=== PATIENT | female | born 1940 | race Caucasian/White ===

== ENCOUNTER 2019-04-05 14:10 | Inpatient (IN) | payer MEDICAID, MEDICARE ==
[~2019-04-05] VITALS: Ht 157.5 cm; Wt 60.6 kg
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
[2019-04-05 16:00] VITALS: BP 114/76
[2019-04-05] MEDS ORDERED: MAGNESIUM HYDROXIDE 2,400 MG/30 ML ORAL.SUSP. PO PRN (16:00)
[2019-04-05] MEDS ORDERED: MAG HYDROX/AL HYDROX/SIMETH 30 ML ORAL.SUSP PO PRN (16:00)
[2019-04-05] MEDS ORDERED: METHYL SALICYLATE/MENTHOL TOPICAL OINTMENT 29GM TUBE. TP PRN (16:00)
[2019-04-05 17:05] LABS: BASO # 0.1 x10^3/uL (0.0-0.2); BASO % 1 % (0-3); EOS # 0.2 x10^3/uL (0.0-0.7); EOS % 2 % (0-3); HEMATOCRIT 40.4 % (36.0-47.0); HEMOGLOBIN 13.6 g/dL (12.0-15.5); LYMPH # 1.7 x10^3/uL (1.0-4.8); LYMPH % 15 % (24-48); MEAN CORPUSCULAR HEMOGLOBIN 33 pg (25-35); MEAN CORPUSCULAR HGB CONC 34 g/dL (31-37); MEAN CORPUSCULAR VOLUME 98 fL (79-100); MONO # 1.1 x10^3/uL (0.0-1.1); MONO % 10 % (0-9); NEUT # 8.3 x10^3uL (1.8-7.7); NEUT % 73 % (31-73); PLATELET COUNT 296 x10^3/uL (140-400); RED BLOOD COUNT 4.12 x10^6/uL (3.50-5.40); RED CELL DISTRIBUTION WIDTH 13.5 % (11.5-14.5); WHITE BLOOD COUNT 11.5 x10^3/uL (4.0-11.0)
[2019-04-05 17:15] LABS: ALBUMIN 3.2 g/dL (3.4-5.0); ALBUMIN/GLOBULIN RATIO 0.8 (1.0-1.7); CALCIUM 9.5 mg/dL (8.5-10.1); CREATININE 0.9 mg/dL (0.6-1.0); GFR 60.9; MAGNESIUM 1.9 mg/dL (1.8-2.4); POTASSIUM 3.5 mmol/L (3.5-5.1); TOTAL BILIRUBIN 0.7 mg/dL (0.2-1.0)
[2019-04-05] MEDS ORDERED: FERR325T14 PO (17:23)
[2019-04-05] MEDS ORDERED: POLY17PO5 PO (17:23)
[2019-04-05] MEDS ORDERED: ACET325T9 PO (17:23)
[2019-04-05] MEDS ORDERED: HALO5TAB PO (17:23)
[2019-04-05] MEDS ORDERED: ALBU2.5V8 IH (17:23)
[2019-04-05] MEDS ORDERED: HYDR-2155 PO (17:23)
[2019-04-05] MEDS ORDERED: EZET10TA18 PO (17:23)
[2019-04-05] MEDS ORDERED: GLIM4TAB2 PO (17:23)
[2019-04-05] MEDS ORDERED: IPRA3AMP29 NEB (17:23)
[2019-04-05] MEDS ORDERED: VIT1CAPS12 PO (17:23)
[2019-04-05] MEDS ORDERED: BUSP10TA PO (17:23)
[2019-04-05] MEDS ORDERED: DICY10AM IM (17:23)
[2019-04-05] MEDS ORDERED: BISA10SU2 RC (17:23)
[2019-04-05] MEDS ORDERED: RISP1TAB43 PO (17:23)
[2019-04-05] MEDS ORDERED: SITA100T PO (17:23)
[2019-04-05] MEDS ORDERED: ONDA4TAB12 PO (17:23)
[2019-04-05] MEDS ORDERED: ISOS60TA2 PO (17:23)
[2019-04-05] MEDS ORDERED: BUDE0.5A3 IH (17:23)
[2019-04-05] MEDS ORDERED: CALC-157 PO (17:23)
[2019-04-05] MEDS ORDERED: DULO60CA6 PO (17:23)
[2019-04-05] MEDS ORDERED: LOPE2TAB27 PO (17:23)
[2019-04-05] MEDS ORDERED: ASPI-612 PO (17:23)
[2019-04-05] MEDS ORDERED: INSU100I17 SQ (17:23)
[2019-04-05] MEDS ORDERED: HYDROcodone/APAP 5/325MG 1 TAB TABLET PO PRN (17:30)
[2019-04-05] MEDS ORDERED: ALBUTEROL SULFATE 2.5 MG/3 ML NEBU. IH PRN (17:30)
[2019-04-05] MEDS ORDERED: ACETAMINOPHEN 325 MG TABLET PO PRN (17:30)
[2019-04-05] MEDS ORDERED: DICYCLOMINE HCL 20 MG TABLET PO PRN (18:00)
[2019-04-05] MEDS ORDERED: BISACODYL 10 MG SUPP.RECT PR PRN (18:00)
[2019-04-05] MEDS ORDERED: HALOPERIDOL 5 MG TABLET PO PRN (18:00)
[2019-04-05] MEDS ORDERED: DICY20TA3 PO (18:04)
[2019-04-05] MEDS ORDERED: LOPERAMIDE 2 MG CAPSULE PO PRN (18:15)
[2019-04-05] MEDS ORDERED: POLYETHYLENE GLYCOL 3350 17 GM PACKET. PO PRN (18:15)
[2019-04-05] MEDS ORDERED: ONDANSETRON ODT 4 MG TAB.RAPDIS PO PRN (18:15)
[2019-04-05 18:52] LABS: CLARITY,URINE TURBID; COLOR,URINE YELLOW
[2019-04-05 18:53] LABS: BACTERIA,URINE MANY /HPF (0-FEW); BILIRUBIN,URINE NEG (NEG); GLUCOSE,URINE NEG (NEG); NITRITE,URINE NEG (NEG); SQUAMOUS EPITHELIAL CELL,UR OCC /LPF; UROBILINOGEN,URINE 0.2 mg/dL (0.2 mg/dL); WBC,URINE TNTC /HPF (0-4)
--- NOTE | 2019-04-05 18:53 | NUR ---
Patient has been calm and pleasant since arrival. Urine sample obtained and sent to lab. Patient stated she is experiencing urine urgency, which is new for her. She is social with peers and seated in wheelchair. She is to have 3L oxygen continuous r/t COPD history.
[2019-04-05] MEDS ORDERED: NON FORMULARY ITEM (Budesonide (Pulmicort) 0.5 MG) IH SCH (21:00)
[2019-04-05] MEDS: IPRATRPIUM/ALBUTEROL 0.5/2.5MG 3 ML NEBU. NEB SCH (21:11)
[2019-04-05] MEDS: BUDESONIDE 0.5 MG/2 ML NEBU NEB SCH (21:12)
[2019-04-05] MEDS: busPIRone 10 MG TABLET. PO SCH (21:51)
[2019-04-05] MEDS: risperiDONE 1 MG TABLET. PO SCH (21:51)
[2019-04-05] MEDS: DULoxetine HCL 60 MG CAPSULE.DR PO SCH (21:51)
[2019-04-05] MEDS: GLIMEPIRIDE 2 MG TABLET PO SCH (21:55)
[2019-04-06 04:11] LABS: THYROXINE 8.4 ug/dL (4.5-12.0)
[2019-04-06 06:20] VITALS: BP 114/72
[2019-04-06] MEDS ORDERED: NON FORMULARY ITEM (Insulin Aspart (Novolog Flexpen) 0 UNIT) SQ SCH (07:30)
[2019-04-06] MEDS: INSULIN LISPRO 300 UNITS/3 ML INSULN.PEN. SQ SCH ×3 (09:14→17:33)
[2019-04-06] MEDS: busPIRone 10 MG TABLET. PO SCH ×3 (10:14→21:41)
[2019-04-06] MEDS: MULTIVITAMIN I-VITE TABLET. PO SCH (10:14)
[2019-04-06] MEDS: ASPIRIN ENTERIC COATED 81 MG TABLET.DR. PO SCH (10:14)
[2019-04-06] MEDS: GLIMEPIRIDE 2 MG TABLET PO SCH ×2 (10:14→17:31)
[2019-04-06] MEDS: FERROUS SULFATE 325 MG TABLET. PO SCH (10:14)
[2019-04-06] MEDS: CALCIUM CARB/VIT D3 500/200 TABLET PO SCH (10:14)
[2019-04-06] MEDS: EZETIMIBE 10 MG TABLET PO SCH (10:15)
[2019-04-06] MEDS: LINAGLIPTIN 5 MG TABLET PO SCH (10:15)
[2019-04-06] MEDS: ISOSORBIDE MONONITRATE ER 30 MG TAB.ER.24H PO SCH (10:15)
[2019-04-06] MEDS: IPRATRPIUM/ALBUTEROL 0.5/2.5MG 3 ML NEBU. NEB SCH ×3 (10:39→20:46)
[2019-04-06] MEDS: BUDESONIDE 0.5 MG/2 ML NEBU NEB SCH ×2 (10:39→20:46)
[2019-04-06 11:08] LABS: HEMOGLOBIN A1C 6.5 % (4.8-5.6)
--- NOTE | 2019-04-06 14:00 | NUR ---
PSYCHOSOCIAL ASSESSMENT ADMISSION DATE: 04/05/19 CONTACT INFORMATION: DPOA/Guardian Contact Name: Marleni Bass Contact Address: [place], [place] Contact Phone #: ETHNIC ORIGIN: REASONS FOR ADMISSION: Agitated Anxiety/Panic Combative Delusions Sig. Change Sleep ADDITIONAL ADMISSION COMMENTS: According to the intake, pt was delusional, hallucinating (seeing dogs and ). calls 911 because she is scared, has insomnia, anxious, agitated REASON FOR ADMISSION IN PATIENT/FAMILY'S OWN WORDS: She has had a tough time recovering from when she had the Influenza B, pneumonia and then sepsis 2x. PATIENT/FAMILY EXPECTATIONS FOR ADMISSION: Medically stable and decrease delusions. LIVING SITUATION: Patient lives with: Nursing Home Contact Name: Rock Cee [facility] Contact Address: [facility]; [place] [address] Contact Phone #: Contact Fax #: FAMILY RELATIONS: Marital Status: # of Marriages: 1 # of Children: 3 [facility] Family Support: Concerned Involved in DC Planning Additional Comments r/t Family: Pt was to her for almost 30 years. Pt and her as they didn't love each other that way. They are still friends and pt ex- visits her. Together the two had 3 children. One child is estranged from the family and lives in [place]. SIGNIFICANT PSYCHIATRIC/MEDICAL HISTORY: Psychiatric/Treatment History: This is pt first psych admission to [facility]. Pt carries a dx of MDD and anxiety Pertinent Family History: No family hx known HISTORICAL DATA: Childhood Environment: Supportive Childhood Environment Additional Comments: Pt is one of 3 girls. Her sisters Judy and Anna are still living. they got older pt started to fight with her sisters more and continued to not get along til this day. 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 service: N Restoration background: Judaism Sexual orientation: Heterosexual Educational Level: Pt graduated high school; highest grade completed is the 12th grade. Past/Present Interests/Hobbies: crafts; "my Mom was the greatest at anything that was crafty". Music. Financial support/resources: Social Security SS Disability Monthly income: Person handling finances: Pt continues to handle her own finances Do you have a history of legal problems: N Cultural considerations: None SOCIAL RELATIONSHIPS-CURRENT/PAST: Psychiatrist: PCP: Dr. Kemp Counselor/Therapist: [facility]: Support Group: [employer] Inspector/Director Regulatory Agency: Other relationships: STRENGTHS & WEAKNESSES: Patient's strengths: Good verbal skills Approachable Other patient strengths: Patient's weaknesses: Lack of resources Poor social skills Health problems Other patient weaknesses: PRELIMINARY PLAN OF TREATMENT: Preliminary plan: Dec. Anxiety/Panic Dec. Hallucination/Delus Promote Coping Skill Medication Stabilization Other preliminary treatment comments: DISCHARGE PLANNING: Discharge planning/disposition: Nursing Home Additional discharge needs identified: Pt will return back to [facility] once stable. ADDITIONAL INFORMATION: Other Pertinent Data: SW spoke with pt and dtr to complete PSA. Pt was tired as she just finished physical therapy but was cooperative in answering as many questions as she could. Pt dtr is just concerned that her mother has not recovered from beng so sick earlier in the year. Pt dtr reports that pt has been depressed all of her life. She has remembered times that her mother has laid on the couch for days and could not do anything with herself. Pt dtr believes that is the main problem pt has within holding a job or maintaining things she loved to do. SW will continue to work with pt and pt family in getting discharge plans set for return to [facility] once stable.
[2019-04-06 15:20] LABS: THYROID STIM HORMONE (TSH) 2.127 uIU/mL (0.358-3.740)
[2019-04-06 15:54] VITALS: BP 122/77
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
[2019-04-06] MEDS: DULoxetine HCL 60 MG CAPSULE.DR PO SCH (21:41)
[2019-04-06] MEDS: risperiDONE 1 MG TABLET. PO SCH (21:41)
--- NOTE | 2019-04-06 23:34 | PSYEV ---
DATE OF SERVICE: 04/05/2019 REASON FOR ADMISSION: This 78-year-old single female, who was [facility] from [facility] where she was evaluated for falls, weakness and shortness of breath. HISTORY OF PRESENT ILLNESS: The patient apparently was a resident at [place], [place] and apparently she started having problems including hallucinations, seeing dogs and also having people walking on her backyard including children. She also talked about the people. The patient called 911 several times when she was staying at the group home. The patient was very scared, confused, marked agitation, also significant mood changes. The patient was given injection Haldol IM and then she was sent here because of the patient's psychosis. The patient also became verbally aggressive. The patient on arrival here got fearful, scared and she was on wheelchair. The patient was disoriented. She has also had problems with the concept of time. She thought she was living at home prior to she went to the group home and she thought she was living at the group home now. The patient is having difficulty with her thinking, racing thoughts, intrusive thoughts, significant mood swings, paranoia, suspiciousness and also having visual and auditory hallucinations. SOCIAL HISTORY: The patient denies of any alcohol or drug abuse. The patient said she was a smoker, quit long time ago, and she used to smoke up to pack per day. PAST MEDICAL HISTORY: COPD, pulmonary fibrosis, coronary artery disease with prior AZ and coronary stenting, diabetes type 2, hypercholesterolemia, osteoporosis, depression and degenerative disk disease. The patient also had hysterectomy in 1977, lumbar laminectomy and also breast reduction. ALLERGIES: THE PATIENT IS ALLERGIC TO IBUPROFEN, BUPROPION AND AUGMENTIN. PAST PSYCHIATRIC HISTORY: The patient admits she has been depressed most of her life and she was treated with antidepressants, but she could not recall. The patient stated depression started when she was about 23 years old. The patient states her current depression stemming from loss of her mother, she about 2 months ago according to her. The patient denies of any suicidal or homicidal thoughts, but admits to having suicidal thoughts in the past including having a plan, but never followed through. CURRENT MEDICATIONS: Include BuSpar 10 mg t.i.d., Cymbalta 60 mg at night, Haldol 5 mg p.r.n. q. 6 to 8 hours and Risperdal 1 mg at bedtime p.o. PSYCHOSOCIAL HISTORY: The patient is very confused, is not able to give much information. The patient has a power of title attorney. The patient was twice, first marriage for 12 years with 2 children. Apparently, her first was an alcoholic and also abusing drugs and apparently she left and second marriage only lasted for briefly, no children. The patient also was a resident at [facility] since 2017. She has 3 grown up children. 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 FAMILY HISTORY: Father from pancreatic cancer. Mother of colon cancer. The patient has 2 siblings. MENTAL STATUS EXAMINATION: The patient appeared to be of her stated age, currently on wheelchair. She has gait problems. The patient was highly anxious, nervous and also distracted easily. The patient talked about all the things going on around her house and apparently she is mistaking the group home for her house. The patient states the children and the people, they have all messed up her backyard. She also admits to seeing dogs and other things, hearing things that she could not understand what is going on. The patient also felt that she is going to and she is losing control and loss of touch with reality. The patient also gets agitated easily, also having significant problems with the thinking process. The patient is disoriented to time, place and person. Her memory is not testable at this time and judgment impaired. Insight limited. STRENGTHS: The patient has high school diploma, was able to work in the past. She has 3 children, keeps in contact with them. WEAKNESSES: The patient currently delusional, paranoid, suspicious, and also having cognitive deficits with multiple physical problems. ADMITTING DIAGNOSES: AXIS I: 1. Major depression, recurrent with psychotic features. 2. 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 3. Delusional disorder, unspecified. AXIS II: None. AXIS III: Chronic obstructive pulmonary disease, type 2 diabetes mellitus, hypercholesterolemia, osteoporosis, history of AZ and coronary artery disease and also history of stent placement. The patient is also fall risk. INITIAL TREATMENT PLAN: The patient will be seen by Dr. Min. The patient also had a lab work including CBC, chem profile, urinalysis. The patient will be seen daily by psychiatrist. The patient encouraged to attend all the activities including individual therapy, group therapy, activity therapy. The patient's current medications include multivitamins one daily, Tradjenta 5 mg daily, Imdur 60 mg daily, Zetia 10 mg daily, aspirin 81 mg daily, ferrous sulfate 325 mg daily. The patient also on Humalog and glimepiride. The patient also on Risperdal 1 mg at night, Cymbalta 60 mg at night, Haldol 5 mg q. 8 hours p.r.n. LENGTH OF STAY: 10 days. DISCHARGE PLANS: The patient currently undergoing diagnostic evaluation and also we will manage her psychosis and evaluate her depression and treat her accordingly. SARA PEREIRA MD DR: Lucille JOB#: [id number] / [id number]
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
--- NOTE | 2019-04-07 01:58 | NUR ---
Nursing Note The patient was located in her room for her assessment and medication pass. The patient was compliant with her medications and took them whole. The patient was appropriate during interactions with this nurse and was very pleasant during conversation. The patient is currently sleeping in her room.
[2019-04-07] MEDS: IPRATRPIUM/ALBUTEROL 0.5/2.5MG 3 ML NEBU. NEB SCH ×5 (05:34→20:52)
[2019-04-07] MEDS: BUDESONIDE 0.5 MG/2 ML NEBU NEB SCH ×2 (05:34→20:53)
[2019-04-07 06:04] VITALS: BP 108/56
[2019-04-07] MEDS: busPIRone 10 MG TABLET. PO SCH ×3 (08:22→21:00)
[2019-04-07] MEDS: CALCIUM CARB/VIT D3 500/200 TABLET PO SCH (08:22)
[2019-04-07] MEDS: ASPIRIN ENTERIC COATED 81 MG TABLET.DR. PO SCH (08:22)
[2019-04-07] MEDS: MULTIVITAMIN I-VITE TABLET. PO SCH (08:22)
[2019-04-07] MEDS: LINAGLIPTIN 5 MG TABLET PO SCH (08:22)
[2019-04-07] MEDS: EZETIMIBE 10 MG TABLET PO SCH (08:22)
[2019-04-07] MEDS: FERROUS SULFATE 325 MG TABLET. PO SCH (08:23)
[2019-04-07] MEDS: ISOSORBIDE MONONITRATE ER 30 MG TAB.ER.24H PO SCH (08:23)
[2019-04-07] MEDS: INSULIN LISPRO 300 UNITS/3 ML INSULN.PEN. SQ SCH ×3 (08:25→17:00)
[2019-04-07] MEDS: GLIMEPIRIDE 2 MG TABLET PO SCH ×2 (08:30→18:13)
--- NOTE | 2019-04-07 13:57 | NUR ---
Location of Patient during Assessment:DR Behaviors Mood and Affect this shift:intermittently confused Medication Compliant: yes Assessment Compliant:yes Response After Interventions: redirectable. walking and forgetting she is hooked to o2.
[2019-04-07 15:51] VITALS: BP 97/63
[2019-04-07] MEDS: risperiDONE 1 MG TABLET. PO SCH (20:59)
[2019-04-07] MEDS: DULoxetine HCL 60 MG CAPSULE.DR PO SCH (21:00)
[2019-04-08] MEDS: BUDESONIDE 0.5 MG/2 ML NEBU NEB SCH ×2 (05:27→20:19)
[2019-04-08] MEDS: IPRATRPIUM/ALBUTEROL 0.5/2.5MG 3 ML NEBU. NEB SCH ×4 (05:28→20:19)
[2019-04-08 06:13] VITALS: BP 98/62
[2019-04-08] MEDS: INSULIN LISPRO 300 UNITS/3 ML INSULN.PEN. SQ SCH ×3 (08:00→17:00)
[2019-04-08] MEDS: busPIRone 10 MG TABLET. PO SCH ×3 (08:01→20:46)
[2019-04-08] MEDS: ASPIRIN ENTERIC COATED 81 MG TABLET.DR. PO SCH (08:01)
[2019-04-08] MEDS: CALCIUM CARB/VIT D3 500/200 TABLET PO SCH (08:02)
[2019-04-08] MEDS: FERROUS SULFATE 325 MG TABLET. PO SCH (08:02)
[2019-04-08] MEDS: GLIMEPIRIDE 2 MG TABLET PO SCH ×2 (08:02→17:00)
[2019-04-08] MEDS: EZETIMIBE 10 MG TABLET PO SCH (08:02)
[2019-04-08] MEDS: ISOSORBIDE MONONITRATE ER 30 MG TAB.ER.24H PO SCH (08:02)
[2019-04-08] MEDS: LINAGLIPTIN 5 MG TABLET PO SCH (08:02)
[2019-04-08] MEDS: MULTIVITAMIN I-VITE TABLET. PO SCH (08:02)
--- NOTE | 2019-04-08 11:04 | NUR ---
Location of Patient during Assessment:DR Behaviors Mood and Affect this shift:intermittently confused Medication Compliant: yes Assessment Compliant:yes Response After Interventions: redirectable.
--- NOTE | 2019-04-08 15:38 | EKG ---
[address] [address] Test Date: 2019-04-07 Test Time: 10:02:50 Pat Name: AMY SANTOS Department: Room: [address] [place] [address] Gender: F Assistant Center Manager: CHANDANA : 1940 Requested By: SARA PEREIRA Order Number: [id number] Reading MD: Poncho Franklin Measurements Intervals [place] Rate: 107 P: 31 ID: [id number] QRS: -7 QRSD: 64 T: 64 QT: 316 QTc: 427 Interpretive Statements SINUS TACHYCARDIA LEFTWARD AXIS Electronically Signed On 04-27-2019 12:40:59 CDT by Poncho Franklin
--- NOTE | 2019-04-08 15:40 | NUR ---
ACTIVITY THERAPY ASSESSMENT Completed based on observation and interview. Pt. was agreeable to speak to POULTRY PICKER and did so while in the day room, using oxygen from a wall port. Pt. was pleasant to talk to and did not require much if any prompting to stay on topic. When asked what brought her here, she laughed and said "boredom, but you don't have to write that down." She was a little confused and forgetful throughout the conversation. She needed reminders about where she was exactly and appeared to be agreeable with being here. She talked about being here before when she was much younger, in her teenage years, and going through similar issues. She talked about having a break down, being nervous and very scared. She was tearful when talking about her children having to "deal with an older mom." POULTRY PICKER talked about the structure of groups and medical care here and Pt. was hopeful to get good help and information to take with her. Pt. enjoyed socializing with POULTRY PICKER and others, introductions to other peers are needed. POULTRY PICKER asked if Pt. would like leisure material to work with (crossword, word search, coloring, etc); however, Pt. explained she cannot see well. POULTRY PICKER suggested audiobooks and she seemed open to trying that. She talked about liking 50's/60's music but was not interested in country music. She also talked about missing her kids and liked to go shopping with them. Initial goal aimed to increase socialization and relaxation techniques: Pt. will participate in at least one Activity Therapy group per day.
[2019-04-08 16:17] VITALS: BP 126/77
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
[2019-04-08] MEDS: DULoxetine HCL 60 MG CAPSULE.DR PO SCH (20:45)
[2019-04-08] MEDS: risperiDONE 1 MG TABLET. PO SCH (20:46)
--- NOTE | 2019-04-09 01:30 | NUR ---
Pt awake in bed says she is unable to sleep because of things in her future are on her mind. While talking with her she is calling to her kids who she said are in the blue. Pt denies pain or need to use BR. PRN haldol 5 mg given po.
--- NOTE | 2019-04-09 02:30 | NUR ---
Pt sleeping now.
[2019-04-09] MEDS: IPRATRPIUM/ALBUTEROL 0.5/2.5MG 3 ML NEBU. NEB SCH ×4 (05:08→20:14)
[2019-04-09 06:16] VITALS: BP 120/74
[2019-04-09] MEDS: FERROUS SULFATE 325 MG TABLET. PO SCH (07:54)
[2019-04-09] MEDS: ISOSORBIDE MONONITRATE ER 30 MG TAB.ER.24H PO SCH (07:54)
[2019-04-09] MEDS: GLIMEPIRIDE 2 MG TABLET PO SCH ×2 (07:54→16:57)
[2019-04-09] MEDS: LINAGLIPTIN 5 MG TABLET PO SCH (07:55)
[2019-04-09] MEDS: CALCIUM CARB/VIT D3 500/200 TABLET PO SCH (07:55)
[2019-04-09] MEDS: busPIRone 10 MG TABLET. PO SCH ×3 (07:55→20:53)
[2019-04-09] MEDS: EZETIMIBE 10 MG TABLET PO SCH (07:55)
[2019-04-09] MEDS: MULTIVITAMIN I-VITE TABLET. PO SCH ×2 (07:55→20:53)
[2019-04-09] MEDS: ASPIRIN ENTERIC COATED 81 MG TABLET.DR. PO SCH (07:55)
[2019-04-09] MEDS: INSULIN LISPRO 300 UNITS/3 ML INSULN.PEN. SQ SCH ×3 (08:00→17:00)
[2019-04-09] MEDS: BUDESONIDE 0.5 MG/2 ML NEBU NEB SCH ×2 (11:25→20:14)
[2019-04-09 16:47] VITALS: BP 102/68
[2019-04-09] MEDS: DULoxetine HCL 60 MG CAPSULE.DR PO SCH (20:53)
[2019-04-09] MEDS: risperiDONE 1 MG TABLET. PO SCH (20:54)
[2019-04-09] MEDS: levoFLOXacin 500 MG TABLET PO SCH (20:56)
[2019-04-09] MEDS: LACTOBACILLUS RHAMNOSUS GG 1 CAPSULE. PO SCH (20:57)
--- NOTE | 2019-04-09 21:00 | NUR ---
Kathryn very confused raissa, thinks we are at her mothers trailer having a big family dinner. However she is pleasant and cooperative with taking medications. She is able to state name, , month and year. No behaviors observed.
--- NOTE | 2019-04-09 23:45 | PDOC ---
Exam Note: Benito Note: Please also refer to the separate dictated note~for this date of service dictated separately. Discussed the patient with Nursing staff reviewed the chart.~Reviewed interim history and current functioning. Reviewed vital signs,~Labs/ Radiology~and current medications noted below. Continue current treatment with the changes noted in the dictated addendum note Assessment: Vital Signs: Vital Signs Date Time Temp Pulse Resp B/P (MAP) Pulse Ox O2 Delivery O2 Flow Rate FiO2 04/09/19 20:16 98 Nasal Cannula 2.0 04/09/19 16:47 97.2 100 20 102/68 (79) I&O Intake and Output 04/09/19 06:59 Intake Total 1080 ml Balance 1080 ml Intake Oral 1080 ml Labs: Laboratory Tests Test 04/09/19 08:04 04/09/19 11:40 04/09/19 17:11 04/09/19 20:12 Glucose (Fingerstick) 66 mg/dL (70-99) L 152 mg/dL (70-99) H 101 mg/dL (70-99) H 141 mg/dL (70-99) H Current Medications: Meds: Current Medications Acetaminophen (Tylenol) 650 mg PRN Q6HRS PRN PO PAIN / TEMP; Start 04/05/19 at 16:00 Multi-Ingredient Ointment (Analgesic [place]) 1 odalys PRN QID PRN TP MUSCLE PAIN; Start 04/05/19 at 16:00 Al Hydroxide/Mg Hydroxide (Mylanta Plus Xs) 15 ml PRN AFTMEALHC PRN PO DYSPEPSIA; Start 04/05/19 at 16:00 Magnesium Hydroxide (Milk Of Magnesia) 2,400 mg PRN QHS PRN PO CONSTIPATION; Start 04/05/19 at 16:00 Acetaminophen (Tylenol) 650 mg PRN Q6HRS PRN PO PAIN / TEMP; Start 04/05/19 at 17:30; Status UNV Albuterol Sulfate (Ventolin) 2.5 mg PRN Q6HRS PRN IH SHORTNESS OF BREATH; Start 04/05/19 at 17:30 Calcium/Vitamin D (Oscal D 500mg/ 200uts) 1 tab DAILY PO Last administered on 04/09/19at 07:55; Start 04/06/19 at 09:00 Dicyclomine HCl (Bentyl) 20 mg PRN Q8HRS PRN PO IRRITABLE BOWEL; Start 04/05/19 at 18:00 Ferrous Sulfate (Feosol) 325 mg DAILY PO Last administered on 04/09/19at 07:54; Start 04/06/19 at 09:00 Acetaminophen/ Hydrocodone Bitart (Lortab 5/325) 1 tab PRN Q4HRS PRN PO PAIN; Start 04/05/19 at 17:30 Albuterol/ Ipratropium (Duoneb) 3 ml RTQID NEB Last administered on 04/09/19at 20:14; Start 04/05/19 at 20:00 Aspirin (Aspirin Enteric Coated) 81 mg DAILY PO Last administered on 04/09/19 07:55; Start 04/06/19 at 09:00 Bisacodyl (Dulcolax Supp) 10 mg PRN DAILY PRN [place] CONSTIPATION; Start 04/05/19 at 18:00 Non-Formulary Medication (Budesonide (Pulmicort)) 0.5 mg BID IH ; Start 04/05/19 at 21:00; Status UNV Buspirone HCl (Buspar) 10 mg TID PO Last administered on 04/09/19 20:53; Start 04/05/19 at 21:00 Duloxetine HCl (Cymbalta) 60 mg QHS PO Last administered on 04/09/19 20:53; Start 04/05/19 at 21:00 EZETIMIBE (Zetia) 10 mg DAILY PO Last administered on 04/09/19 07:55; Start 04/06/19 at 09:00 Glimepiride (Amaryl) 4 mg BIDWMEALS PO Last administered on 04/09/19 16:57; Start 04/05/19 at 21:00 Haloperidol (Haldol) 5 mg PRN Q8HRS PRN PO PSYCHOSIS Last administered on 04/09/19 01:37; Start 04/05/19 at 18:00 Non-Formulary Medication (Insulin Aspart (Novolog Flexpen)) FSBS 150-2,00; giv... TIDBFRMEAL SQ ; Start 04/06/19 at 07:30; Status UNV Isosorbide Mononitrate (Imdur) 60 mg DAILY PO Last administered on 5/20/19at 07:54; Start 04/06/19 at 09:00 Loperamide HCl (Imodium) 2 mg PRN Q2HR PRN PO DIARRHEA; Start 04/05/19 at 18:15 Ondansetron HCl (Zofran Odt) 4 mg PRN Q6HRS PRN PO NAUSEA/VOMITING; Start 04/05/19 at 18:15 Polyethylene Glycol (miraLAX) 17 gm PRN DAILY PRN PO CONSTIPATION; Start 04/05/19 at 18:15 Risperidone (RisperDAL) 1 mg QHS PO Last administered on 04/09/19at 20:54; Start 04/05/19 at 21:00 Linagliptin (Tradjenta) 5 mg DAILY PO Last administered on 04/09/19at 07:55; Start 04/06/19 at 09:00 Multivitamins/ Minerals (I-Newton) 1 tab DAILY PO Last administered on 04/09/19at 20:53; Start 04/06/19 at 09:00 Budesonide (Pulmicort) 0.5 mg RTBID NEB Last administered on 04/09/19at 20:14; Start 04/05/19 at 20:00 Insulin Human Lispro (HumaLOG) 0-5 UNITS TIDWMEALS SQ Last administered on 04/09/19at 11:57; Start 04/06/19 at 08:00 Levofloxacin (Levaquin) 500 mg DAILY07 PO Last administered on 04/09/19at 20:56; Start 04/09/19 at 22:00; Stop 04/16/19 at 22:00 Lactobacillus Rhamnosus (Culturelle) 1 cap BID PO Last administered on 04/09/19at 20:57; Start 04/09/19 at 21:00 Active Scripts Active Reported Dicyclomine Hcl 20 Mg Tablet 20 Mg PO PRN Q8HRS PRN Ventolin Hfa Inhaler (Albuterol Sulfate) 18 Gm Hfa.aer.ad 2 Puff IH PRN Q6HRS PRN Tylenol (Acetaminophen) 325 Mg Tablet 650 Mg PO PRN Q6HRS PRN Risperdal (Risperidone) 1 Mg Tablet 1 Mg PO QHS Pulmicort (Budesonide) 0.5 Mg/2 Ml Ampul.neb 0.5 Mg IH BID Preservision Areds Softgel (Vit A/Vit C/Vit E/Zinc/Copper) 1 Each Capsule 1 Each PO DAILY Miralax (Polyethylene Glycol 3350) 17 Gm Powd.pack 17 Gm PO PRN DAILY PRN Ondansetron Odt (Ondansetron) 4 Mg Tab.rapdis 4 Mg PO PRN Q6HRS PRN Loperamide (Loperamide Hcl) 2 Mg Tablet 2 Mg PO PRN Q2HR PRN Januvia (Sitagliptin Phosphate) 100 Mg Tablet 100 Mg PO DAILY Isosorbide Mononitrate Er (Isosorbide Mononitrate) 60 Mg Tab.er.24h 60 Mg PO DAILY Novolog Flexpen (Insulin Aspart) 100 Unit/1 Ml Insuln.pen 2-6 Unit SQ TIDBFRMEAL Hydrocodone-Apap 5-325 (Hydrocodone Bit/Acetaminophen) 1 Each Tablet 1 Tab PO PRN Q4HRS PRN Haloperidol 5 Mg Tablet 5 Mg PO PRN Q8HRS PRN Glimepiride 4 Mg Tablet 4 Mg PO BID Ferrous Sulfate 325 Mg Tablet 325 Mg PO DAILY Zetia (Ezetimibe) 10 Mg Tablet 10 Mg PO DAILY Cymbalta (Duloxetine Hcl) 60 Mg Capsule.dr 60 Mg PO QHS Buspirone Hcl 10 Mg Tablet 10 Mg PO TID Bisacodyl 10 Mg Supp.rect 10 Mg RC PRN DAILY PRN Aspirin Ec (Aspirin) 81 Mg Tablet.dr 81 Mg PO DAILY Duoneb 0.5-3(2.5) Mg/3 Ml (Albuterol/Ipratropium) 3 Ml Ampul.neb 3 Ml NEB QID Calcium 500 + Vit D 200 Tablet (Calcium Carbonate/Vitamin D3) 1 Each Tablet 1 Each PO DAILY I have reviewed the current psychotropics carefully including drug interactions. Risk benefit ratio favors no change other than as noted in my dictated progress note. Diagnosis: Problems: (1) Dementia with behavioral disturbance (2) Major depression with psychotic features (3) Dementia, vascular, with depression (4) Dementia, vascular, with delusions (5) Delusional disorder VIRY COTE MD April 09, 2019 23:45
[2019-04-10] MEDS: BUDESONIDE 0.5 MG/2 ML NEBU NEB SCH ×2 (05:11→20:26)
[2019-04-10] MEDS: IPRATRPIUM/ALBUTEROL 0.5/2.5MG 3 ML NEBU. NEB SCH ×4 (05:11→20:26)
[2019-04-10] MEDS: levoFLOXacin 500 MG TABLET PO SCH (06:34)
[2019-04-10 06:41] VITALS: BP 134/79
[2019-04-10] MEDS: INSULIN LISPRO 300 UNITS/3 ML INSULN.PEN. SQ SCH ×3 (08:00→17:00)
[2019-04-10] MEDS: ISOSORBIDE MONONITRATE ER 30 MG TAB.ER.24H PO SCH (09:00)
[2019-04-10 09:15] LABS: BASO # 0.1 x10^3/uL (0.0-0.2); BASO % 1 % (0-3); EOS # 0.2 x10^3/uL (0.0-0.7); EOS % 2 % (0-3); HEMATOCRIT 38.5 % (36.0-47.0); HEMOGLOBIN 12.7 g/dL (12.0-15.5); LYMPH # 0.9 x10^3/uL (1.0-4.8); LYMPH % 6 % (24-48); MEAN CORPUSCULAR HEMOGLOBIN 32 pg (25-35); MEAN CORPUSCULAR HGB CONC 33 g/dL (31-37); MEAN CORPUSCULAR VOLUME 98 fL (79-100); MONO # 0.9 x10^3/uL (0.0-1.1); MONO % 7 % (0-9); NEUT # 11.7 x10^3uL (1.8-7.7); NEUT % 85 % (31-73); PLATELET COUNT 322 x10^3/uL (140-400); RED BLOOD COUNT 3.92 x10^6/uL (3.50-5.40); RED CELL DISTRIBUTION WIDTH 13.6 % (11.5-14.5); WHITE BLOOD COUNT 13.8 x10^3/uL (4.0-11.0)
[2019-04-10 09:30] LABS: ALBUMIN 3.3 g/dL (3.4-5.0); ALBUMIN/GLOBULIN RATIO 0.9 (1.0-1.7); CALCIUM 9.5 mg/dL (8.5-10.1); CREATININE 1.1 mg/dL (0.6-1.0); GFR 48.3; POTASSIUM 4.2 mmol/L (3.5-5.1); TOTAL BILIRUBIN 0.8 mg/dL (0.2-1.0)
[2019-04-10] MEDS: ASPIRIN ENTERIC COATED 81 MG TABLET.DR. PO SCH (10:13)
[2019-04-10] MEDS: LACTOBACILLUS RHAMNOSUS GG 1 CAPSULE. PO SCH ×2 (10:13→21:04)
[2019-04-10] MEDS: GLIMEPIRIDE 2 MG TABLET PO SCH ×2 (10:13→17:35)
[2019-04-10] MEDS: busPIRone 10 MG TABLET. PO SCH ×3 (10:13→21:05)
[2019-04-10] MEDS: LINAGLIPTIN 5 MG TABLET PO SCH (10:14)
[2019-04-10] MEDS: CALCIUM CARB/VIT D3 500/200 TABLET PO SCH (10:14)
[2019-04-10] MEDS: FERROUS SULFATE 325 MG TABLET. PO SCH (10:14)
[2019-04-10] MEDS: EZETIMIBE 10 MG TABLET PO SCH (10:14)
[2019-04-10] MEDS: MULTIVITAMIN I-VITE TABLET. PO SCH (10:19)
--- NOTE | 2019-04-10 12:13 | NUR ---
Patient has had a good morning, took medications (needed larger pills crushed), allowed for morning assessment. Mentioned to staff around 1100 that her right arm was causing her pain. Phone call to Dr. Alberts in an x-ray. Patient continued to participate in group and has been smiling and talking to staff. No signs of agitation noted at this time. Will continue to monitor.
--- NOTE | 2019-04-10 14:36 | RAD ---
Right humerus, 2 views, 04/10/2019: HISTORY: Pain, previous fracture and surgery Comparison is made to an outside study from 09/27/2018. There is moderate patchy bony demineralization. There is a metallic plate traversing a defect in the proximal humeral shaft. There are associated surgical screws extending into the humeral head and the mid humeral shaft. There is a large piece of bone graft at the surgical site. There is callus formation. The bony fragments do not appear to be solidly fused. There are lucencies surrounding the humeral fixation screws at the mid humeral level compatible with loosening or infection. The lower end of the fixation plate is mildly displaced laterally relative to the lateral margin of the mid humerus. Similar findings were present on 09/27/2018 exam. IMPRESSION: 1. Postsurgical change involving the proximal right humerus with a fixation plate and screws traversing a nonunited bone graft. 2. Lucencies related to the fixation screws in the mid humerus suggesting loosening or infection. 3. Similar findings were present on 09/27/2018. Electronically signed by: Ousmane Farrell MD (04/10/2019 2:33 PM) [facility]
[2019-04-10 16:26] VITALS: BP 110/68
--- NOTE | 2019-04-10 20:05 | PDOC ---
Exam Note: Benito Note: Admission Date: April 05, 2019 at 15:30 * A recertification for continued Inpatient Psychiatric Admission must be done on Day 12, Day 18 and Day 30. Please also refer to the separate dictated note~for this date of service dictated separately.~Patient seen individually. Discussed the patient with Nursing staff reviewed the chart.~Reviewed interim history and current functioning. Reviewed vital signs,~Labs/ Radiology~and current medications noted below. Continue current treatment with the changes noted in the dictated addendum note Assessment: Vital Signs: Vital Signs Date Time Temp Pulse Resp B/P (MAP) Pulse Ox O2 Delivery O2 Flow Rate FiO2 04/10/19 16:26 97.9 98 20 110/68 (82) 100 04/10/19 15:24 Nasal Cannula 2.0 I&O Intake and Output 04/10/19 07:00 Intake Total 800 ml Balance 800 ml Intake Oral 800 ml Labs: Laboratory Tests Test 04/09/19 20:12 04/10/19 07:30 04/10/19 09:08 04/10/19 11:27 Glucose (Fingerstick) 141 mg/dL (70-99) H 76 mg/dL (70-99) 169 mg/dL (70-99) H White Blood Count 13.8 x10^3/uL (4.0-11.0) H Red Blood Count 3.92 x10^6/uL (3.50-5.40) Hemoglobin 12.7 g/dL (12.0-15.5) Hematocrit 38.5 % (36.0-47.0) Mean Corpuscular Volume 98 fL (79-100) Mean Corpuscular Hemoglobin 32 pg (25-35) Mean Corpuscular Hemoglobin Concent 33 g/dL (31-37) Red Cell Distribution Width 13.6 % (11.5-14.5) Platelet Count 322 x10^3/uL (140-400) Neutrophils (%) (Auto) 85 % (31-73) H Lymphocytes (%) (Auto) 6 % (24-48) L Monocytes (%) (Auto) 7 % (0-9) Eosinophils (%) (Auto) 2 % (0-3) Basophils (%) (Auto) 1 % (0-3) Neutrophils # (Auto) 11.7 x10^3uL (1.8-7.7) H Lymphocytes # (Auto) 0.9 x10^3/uL (1.0-4.8) L Monocytes # (Auto) 0.9 x10^3/uL (0.0-1.1) Eosinophils # (Auto) 0.2 x10^3/uL (0.0-0.7) Basophils # (Auto) 0.1 x10^3/uL (0.0-0.2) Sodium Level 137 mmol/L (136-145) Potassium Level 4.2 mmol/L (3.5-5.1) Chloride Level 99 mmol/L (98-107) Carbon Dioxide Level 25 mmol/L (21-32) Anion Gap 13 (6-14) Blood Urea Nitrogen 8 mg/dL (7-20) Creatinine 1.1 mg/dL (0.6-1.0) H Estimated GFR (Cockcroft-Gault) 48.3 BUN/Creatinine Ratio 7 (6-20) Glucose Level 196 mg/dL (70-99) H Calcium Level 9.5 mg/dL (8.5-10.1) Total Bilirubin 0.8 mg/dL (0.2-1.0) Aspartate Amino Transferase (AST) 38 U/L (15-37) H Alanine Aminotransferase (ALT) 39 U/L (14-59) Alkaline Phosphatase 122 U/L (46-116) H Total Protein 7.0 g/dL (6.4-8.2) Albumin 3.3 g/dL (3.4-5.0) L Albumin/Globulin Ratio 0.9 (1.0-1.7) L Test 04/10/19 16:30 04/10/19 19:46 Glucose (Fingerstick) 141 mg/dL (70-99) H 135 mg/dL (70-99) H Current Medications: Meds: Current Medications Acetaminophen (Tylenol) 650 mg PRN Q6HRS PRN PO PAIN / TEMP; Start 04/05/19 at 16:00 Multi-Ingredient Ointment (Analgesic [place]) 1 odalys PRN QID PRN TP MUSCLE PAIN; Start 04/05/19 at 16:00 Al Hydroxide/Mg Hydroxide (Mylanta Plus Xs) 15 ml PRN AFTMEALHC PRN PO DYSPEPSIA; Start 04/05/19 at 16:00 Magnesium Hydroxide (Milk Of Magnesia) 2,400 mg PRN QHS PRN PO CONSTIPATION; Start 04/05/19 at 16:00 Acetaminophen (Tylenol) 650 mg PRN Q6HRS PRN PO PAIN / TEMP; Start 04/05/19 at 17:30; Status UNV Albuterol Sulfate (Ventolin) 2.5 mg PRN Q6HRS PRN IH SHORTNESS OF BREATH; Start 04/05/19 at 17:30 Calcium/Vitamin D (Oscal D 500mg/ 200uts) 1 tab DAILY PO Last administered on 04/10/19 10:14; Start 04/06/19 at 09:00 Dicyclomine HCl (Bentyl) 20 mg PRN Q8HRS PRN PO IRRITABLE BOWEL; Start 04/05/19 at 18:00 Ferrous Sulfate (Feosol) 325 mg DAILY PO Last administered on 04/10/19 10:14; Start 04/06/19 at 09:00 Acetaminophen/ Hydrocodone Bitart (Lortab 5/325) 1 tab PRN Q4HRS PRN PO PAIN; Start 04/05/19 at 17:30 Albuterol/ Ipratropium (Duoneb) 3 ml RTQID NEB Last administered on 04/10/19 15:24; Start 04/05/19 at 20:00 Aspirin (Aspirin Enteric Coated) 81 mg DAILY PO Last administered on 04/10/19at 10:13; Start 04/06/19 at 09:00 Bisacodyl (Dulcolax Supp) 10 mg PRN DAILY PRN [place] CONSTIPATION; Start 04/05/19 at 18:00 Non-Formulary Medication (Budesonide (Pulmicort)) 0.5 mg BID IH ; Start 04/05/19 at 21:00; Status UNV Buspirone HCl (Buspar) 10 mg TID PO Last administered on 04/10/19 14:04; Start 04/05/19 at 21:00 Duloxetine HCl (Cymbalta) 60 mg QHS PO Last administered on 04/09/19at 20:53; Start 04/05/19 at 21:00 EZETIMIBE (Zetia) 10 mg DAILY PO Last administered on 04/10/19at 10:14; Start 04/06/19 at 09:00 Glimepiride (Amaryl) 4 mg BIDWMEALS PO Last administered on 04/10/19at 17:35; Start 04/05/19 at 21:00 Haloperidol (Haldol) 5 mg PRN Q8HRS PRN PO PSYCHOSIS Last administered on 04/09/19at 01:37; Start 04/05/19 at 18:00 Non-Formulary Medication (Insulin Aspart (Novolog Flexpen)) FSBS 150-2,00; giv... TIDBFRMEAL SQ ; Start 04/06/19 at 07:30; Status UNV Isosorbide Mononitrate (Imdur) 60 mg DAILY PO Last administered on 04/10/19at 09:00; Start 04/06/19 at 09:00 Loperamide HCl (Imodium) 2 mg PRN Q2HR PRN PO DIARRHEA; Start 04/05/19 at 18:15 Ondansetron HCl (Zofran Odt) 4 mg PRN Q6HRS PRN PO NAUSEA/VOMITING; Start 04/05/19 at 18:15 Polyethylene Glycol (miraLAX) 17 gm PRN DAILY PRN PO CONSTIPATION; Start 04/05/19 at 18:15 Risperidone (RisperDAL) 1 mg QHS PO Last administered on 04/09/19at 20:54; Start 04/05/19 at 21:00 Linagliptin (Tradjenta) 5 mg DAILY PO Last administered on 04/10/19at 10:14; Start 04/06/19 at 09:00 Multivitamins/ Minerals (I-[place]) 1 tab DAILY PO Last administered on 04/10/19at 10:19; Start 04/06/19 at 09:00 Budesonide (Pulmicort) 0.5 mg RTBID NEB Last administered on 04/10/19 05:11; Start 04/05/19 at 20:00 Insulin Human Lispro (HumaLOG) 0-5 UNITS TIDWMEALS SQ Last administered on 04/10/19at 12:32; Start 04/06/19 at 08:00 Levofloxacin (Levaquin) 500 mg DAILY07 PO Last administered on 04/10/19at 06:34; Start 04/09/19 at 22:00; Stop 04/16/19 at 22:00 Lactobacillus Rhamnosus (Culturelle) 1 cap BID PO Last administered on 04/10/19at 10:13; Start 04/09/19 at 21:00 Active Scripts Active Reported Dicyclomine Hcl 20 Mg Tablet 20 Mg PO PRN Q8HRS PRN Ventolin Hfa Inhaler (Albuterol Sulfate) 18 Gm Hfa.aer.ad 2 Puff IH PRN Q6HRS PRN Tylenol (Acetaminophen) 325 Mg Tablet 650 Mg PO PRN Q6HRS PRN Risperdal (Risperidone) 1 Mg Tablet 1 Mg PO QHS Pulmicort (Budesonide) 0.5 Mg/2 Ml Ampul.neb 0.5 Mg IH BID Preservision Areds Softgel (Vit A/Vit C/Vit E/Zinc/Copper) 1 Each Capsule 1 Each PO DAILY Miralax (Polyethylene Glycol 3350) 17 Gm Powd.pack 17 Gm PO PRN DAILY PRN Ondansetron Odt (Ondansetron) 4 Mg Tab.rapdis 4 Mg PO PRN Q6HRS PRN Loperamide (Loperamide Hcl) 2 Mg Tablet 2 Mg PO PRN Q2HR PRN Januvia (Sitagliptin Phosphate) 100 Mg Tablet 100 Mg PO DAILY Isosorbide Mononitrate Er (Isosorbide Mononitrate) 60 Mg Tab.er.24h 60 Mg PO DAILY Novolog Flexpen (Insulin Aspart) 100 Unit/1 Ml Insuln.pen 2-6 Unit SQ TIDBFRMEAL Hydrocodone-Apap 5-325 (Hydrocodone Bit/Acetaminophen) 1 Each Tablet 1 Tab PO PRN Q4HRS PRN Haloperidol 5 Mg Tablet 5 Mg PO PRN Q8HRS PRN Glimepiride 4 Mg Tablet 4 Mg PO BID Ferrous Sulfate 325 Mg Tablet 325 Mg PO DAILY Zetia (Ezetimibe) 10 Mg Tablet 10 Mg PO DAILY Cymbalta (Duloxetine Hcl) 60 Mg Capsule.dr 60 Mg PO QHS Buspirone Hcl 10 Mg Tablet 10 Mg PO TID Bisacodyl 10 Mg Supp.rect 10 Mg RC PRN DAILY PRN Aspirin Ec (Aspirin) 81 Mg Tablet.dr 81 Mg PO DAILY Duoneb 0.5-3(2.5) Mg/3 Ml (Albuterol/Ipratropium) 3 Ml Ampul.neb 3 Ml NEB QID Calcium 500 + Vit D 200 Tablet (Calcium Carbonate/Vitamin D3) 1 Each Tablet 1 Each PO DAILY I have reviewed the current psychotropics carefully including drug interactions. Risk benefit ratio favors no change other than as noted in my dictated progress note. Diagnosis: Problems: (1) Dementia with behavioral disturbance (2) Delusional disorder (3) Dementia, vascular, with depression (4) Dementia, vascular, with delusions (5) Major depression with psychotic features VIRY COTE MD April 10, 2019 20:05
[2019-04-10] MEDS: DULoxetine HCL 60 MG CAPSULE.DR PO SCH (21:04)
[2019-04-10] MEDS: risperiDONE 1 MG TABLET. PO SCH (21:05)
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
[2019-04-11] MEDS: IPRATRPIUM/ALBUTEROL 0.5/2.5MG 3 ML NEBU. NEB SCH ×4 (05:28→20:44)
[2019-04-11] MEDS: levoFLOXacin 500 MG TABLET PO SCH (06:08)
[2019-04-11 06:27] VITALS: BP 109/66
[2019-04-11] MEDS: INSULIN LISPRO 300 UNITS/3 ML INSULN.PEN. SQ SCH ×3 (07:58→17:35)
[2019-04-11] MEDS: BUDESONIDE 0.5 MG/2 ML NEBU NEB SCH ×3 (08:00→20:44)
[2019-04-11] MEDS: LACTOBACILLUS RHAMNOSUS GG 1 CAPSULE. PO SCH ×2 (08:35→19:51)
[2019-04-11] MEDS: FERROUS SULFATE 325 MG TABLET. PO SCH (08:36)
[2019-04-11] MEDS: LINAGLIPTIN 5 MG TABLET PO SCH (08:36)
[2019-04-11] MEDS: ISOSORBIDE MONONITRATE ER 30 MG TAB.ER.24H PO SCH (08:36)
[2019-04-11] MEDS: ASPIRIN ENTERIC COATED 81 MG TABLET.DR. PO SCH (08:36)
[2019-04-11] MEDS: MULTIVITAMIN I-VITE TABLET. PO SCH (08:36)
[2019-04-11] MEDS: busPIRone 10 MG TABLET. PO SCH ×3 (08:36→19:50)
[2019-04-11] MEDS: EZETIMIBE 10 MG TABLET PO SCH (08:36)
[2019-04-11] MEDS: CALCIUM CARB/VIT D3 500/200 TABLET PO SCH (08:36)
[2019-04-11] MEDS: GLIMEPIRIDE 2 MG TABLET PO SCH ×2 (08:40→16:17)
--- NOTE | 2019-04-11 13:00 | NUR ---
Patient in day room part of the day. Compliant with medications, she prefers the large ones crushed in pudding. Pt remains on 3L oxygen continuously and usually sits on the west side of the day room near the oxygen tree. She has been resistant to ambulate and states that her legs hurt when asked to work with PT/OT this morning. She did cooperate with chair exercises. She is social with staff and peers. No delusions noted at this time. Denies hallucinations when asked.
[2019-04-11 16:13] VITALS: BP 102/60
[2019-04-11] MEDS: risperiDONE 1 MG TABLET. PO SCH (19:51)
[2019-04-11] MEDS: DULoxetine HCL 60 MG CAPSULE.DR PO SCH (19:52)
--- NOTE | 2019-04-11 21:12 | NUR ---
On assessment patient is sitting in the dayroom eating her HS snack, visiting with staff and other patients. Pt calm, compliant with meds and assessment. Pt is alert and orient. No behaviors noted.
--- NOTE | 2019-04-11 21:17 | PN ---
DATE: 04/10/2019 PSYCHIATRIC PROGRESS NOTE This late entry 04/10/2019 covers elements not covered in my initial note. SUBJECTIVE: I met with the patient in the evening. The patient was seen in her room individually. On orientation questions, she knew the President Ruth, knew the year was 2018, but felt the month was April to June. REVIEW OF SYSTEMS: No CV, , pulmonary, eye system symptoms on review. Reliability poor. Ambulation impaired, in wheelchair. MENTAL STATUS EXAM: Oriented to herself, situation. Insight, judgment, recent and remote memory, attention, concentration, fund of knowledge poor, consistent with her diagnosis mentioned in my initial note. PLAN: No change from initial note. VIRY COTE MD DR: OSCAR/bhavin JOB#: [id number] / [id number]
--- NOTE | 2019-04-11 22:10 | PDOC ---
Exam Note: Benito Note: Please also refer to the separate dictated note~for this date of service dictated separately.~Patient seen individually. Discussed the patient with Nursing staff reviewed the chart.~Reviewed interim history and current functioning. Reviewed vital signs,~Labs/ Radiology~and current medications noted below. Continue current treatment with the changes noted in the dictated addendum note Assessment: Vital Signs: Vital Signs Date Time Temp Pulse Resp B/P (MAP) Pulse Ox O2 Delivery O2 Flow Rate FiO2 04/11/19 20:48 99 Nasal Cannula 2.0 04/11/19 16:13 97.2 103 22 102/60 (74) I&O Intake and Output 04/11/19 07:00 Intake Total 1200 ml Balance 1200 ml Intake Oral 1200 ml Labs: Laboratory Tests Test 04/11/19 07:42 04/11/19 11:21 04/11/19 17:24 04/11/19 19:24 Glucose (Fingerstick) 118 mg/dL (70-99) H 172 mg/dL (70-99) H 110 mg/dL (70-99) H 229 mg/dL (70-99) H Current Medications: Meds: Current Medications Acetaminophen (Tylenol) 650 mg PRN Q6HRS PRN PO PAIN / TEMP; Start 04/05/19 at 16:00 Multi-Ingredient Ointment (Analgesic [place]) 1 odalys PRN QID PRN TP MUSCLE PAIN; Start 04/05/19 at 16:00 Al Hydroxide/Mg Hydroxide (Mylanta Plus Xs) 15 ml PRN AFTMEALHC PRN PO DYSPEPSIA; Start 04/05/19 at 16:00 Magnesium Hydroxide (Milk Of Magnesia) 2,400 mg PRN QHS PRN PO CONSTIPATION; Start 04/05/19 at 16:00 Acetaminophen (Tylenol) 650 mg PRN Q6HRS PRN PO PAIN / TEMP; Start 04/05/19 at 17:30; Status UNV Albuterol Sulfate (Ventolin) 2.5 mg PRN Q6HRS PRN IH SHORTNESS OF BREATH; Start 04/05/19 at 17:30 Calcium/Vitamin D (Oscal D 500mg/ 200uts) 1 tab DAILY PO Last administered on 04/11/19at 08:36; Start 04/06/19 at 09:00 Dicyclomine HCl (Bentyl) 20 mg PRN Q8HRS PRN PO IRRITABLE BOWEL; Start 04/05/19 at 18:00 Ferrous Sulfate (Feosol) 325 mg DAILY PO Last administered on 04/11/19 08:36; Start 04/06/19 at 09:00 Acetaminophen/ Hydrocodone Bitart (Lortab 5/325) 1 tab PRN Q4HRS PRN PO PAIN; Start 04/05/19 at 17:30 Albuterol/ Ipratropium (Duoneb) 3 ml RTQID NEB Last administered on 04/11/19 20:44; Start 04/05/19 at 20:00 Aspirin (Aspirin Enteric Coated) 81 mg DAILY PO Last administered on 04/11/19 08:36; Start 04/06/19 at 09:00 Bisacodyl (Dulcolax Supp) 10 mg PRN DAILY PRN ME CONSTIPATION; Start 04/05/19 at 18:00 Non-Formulary Medication (Budesonide (Pulmicort)) 0.5 mg BID IH ; Start 04/05/19 at 21:00; Status UNV Buspirone HCl (Buspar) 10 mg TID PO Last administered on 04/11/19 19:50; Start 04/05/19 at 21:00 Duloxetine HCl (Cymbalta) 60 mg QHS PO Last administered on 04/11/19 19:52; Start 04/05/19 at 21:00 EZETIMIBE (Zetia) 10 mg DAILY PO Last administered on 04/11/19 08:36; Start 04/06/19 at 09:00 Glimepiride (Amaryl) 4 mg BIDWMEALS PO Last administered on 04/11/19 16:17; Start 04/05/19 at 21:00 Haloperidol (Haldol) 5 mg PRN Q8HRS PRN PO PSYCHOSIS Last administered on 04/09/19 01:37; Start 04/05/19 at 18:00 Non-Formulary Medication (Insulin Aspart (Novolog Flexpen)) FSBS 150-2,00; giv... TIDBFRMEAL SQ ; Start 04/06/19 at 07:30; Status UNV Isosorbide Mononitrate (Imdur) 60 mg DAILY PO Last administered on 04/11/19 08:36; Start 04/06/19 at 09:00 Loperamide HCl (Imodium) 2 mg PRN Q2HR PRN PO DIARRHEA; Start 04/05/19 at 18:15 Ondansetron HCl (Zofran Odt) 4 mg PRN Q6HRS PRN PO NAUSEA/VOMITING; Start 04/05/19 at 18:15 Polyethylene Glycol (miraLAX) 17 gm PRN DAILY PRN PO CONSTIPATION; Start 04/05/19 at 18:15 Risperidone (RisperDAL) 1 mg QHS PO Last administered on 04/11/19 19:51; Start 04/05/19 at 21:00 Linagliptin (Tradjenta) 5 mg DAILY PO Last administered on 04/11/19 08:36; Start 04/06/19 at 09:00 Multivitamins/ Minerals (I-[place]) 1 tab DAILY PO Last administered on 04/11/19 08:36; Start 04/06/19 at 09:00 Budesonide (Pulmicort) 0.5 mg RTBID NEB Last administered on 04/11/19 20:44; Start 04/05/19 at 20:00 Insulin Human Lispro (HumaLOG) 0-5 UNITS TIDWMEALS SQ Last administered on 04/11/19 12:41; Start 04/06/19 at 08:00 Levofloxacin (Levaquin) 500 mg DAILY07 PO Last administered on 04/11/19 06:08; Start 04/09/19 at 22:00; Stop 04/16/19 at 22:00 Lactobacillus Rhamnosus (Culturelle) 1 cap BID PO Last administered on 04/11/19 19:51; Start 04/09/19 at 21:00 Active Scripts Active Reported Dicyclomine Hcl 20 Mg Tablet 20 Mg PO PRN Q8HRS PRN Ventolin Hfa Inhaler (Albuterol Sulfate) 18 Gm Hfa.aer.ad 2 Puff IH PRN Q6HRS PRN Tylenol (Acetaminophen) 325 Mg Tablet 650 Mg PO PRN Q6HRS PRN Risperdal (Risperidone) 1 Mg Tablet 1 Mg PO QHS Pulmicort (Budesonide) 0.5 Mg/2 Ml Ampul.neb 0.5 Mg IH BID Preservision Areds Softgel (Vit A/Vit C/Vit E/Zinc/Copper) 1 Each Capsule 1 Each PO DAILY Miralax (Polyethylene Glycol 3350) 17 Gm Powd.pack 17 Gm PO PRN DAILY PRN Ondansetron Odt (Ondansetron) 4 Mg Tab.rapdis 4 Mg PO PRN Q6HRS PRN Loperamide (Loperamide Hcl) 2 Mg Tablet 2 Mg PO PRN Q2HR PRN Januvia (Sitagliptin Phosphate) 100 Mg Tablet 100 Mg PO DAILY Isosorbide Mononitrate Er (Isosorbide Mononitrate) 60 Mg Tab.er.24h 60 Mg PO DAILY Novolog Flexpen (Insulin Aspart) 100 Unit/1 Ml Insuln.pen 2-6 Unit SQ TIDBFRMEAL Hydrocodone-Apap 5-325 (Hydrocodone Bit/Acetaminophen) 1 Each Tablet 1 Tab PO PRN Q4HRS PRN Haloperidol 5 Mg Tablet 5 Mg PO PRN Q8HRS PRN Glimepiride 4 Mg Tablet 4 Mg PO BID Ferrous Sulfate 325 Mg Tablet 325 Mg PO DAILY Zetia (Ezetimibe) 10 Mg Tablet 10 Mg PO DAILY Cymbalta (Duloxetine Hcl) 60 Mg Capsule.dr 60 Mg PO QHS Buspirone Hcl 10 Mg Tablet 10 Mg PO TID Bisacodyl 10 Mg Supp.rect 10 Mg RC PRN DAILY PRN Aspirin Ec (Aspirin) 81 Mg Tablet.dr 81 Mg PO DAILY Duoneb 0.5-3(2.5) Mg/3 Ml (Albuterol/Ipratropium) 3 Ml Ampul.neb 3 Ml NEB QID Calcium 500 + Vit D 200 Tablet (Calcium Carbonate/Vitamin D3) 1 Each Tablet 1 Each PO DAILY I have reviewed the current psychotropics carefully including drug interactions. Risk benefit ratio favors no change other than as noted in my dictated progress note. Diagnosis: Problems: (1) Dementia with behavioral disturbance (2) Delusional disorder (3) Dementia, vascular, with depression (4) Dementia, vascular, with delusions (5) Major depression with psychotic features VIRY COTE MD April 11, 2019 22:10
[2019-04-12 05:54] VITALS: BP 113/68
[2019-04-12] MEDS: IPRATRPIUM/ALBUTEROL 0.5/2.5MG 3 ML NEBU. NEB SCH ×4 (05:54→20:40)
[2019-04-12] MEDS: BUDESONIDE 0.5 MG/2 ML NEBU NEB SCH ×2 (05:55→20:40)
[2019-04-12] MEDS: levoFLOXacin 500 MG TABLET PO SCH (06:06)
[2019-04-12] MEDS: INSULIN LISPRO 300 UNITS/3 ML INSULN.PEN. SQ SCH ×3 (08:04→17:40)
[2019-04-12] MEDS: GLIMEPIRIDE 2 MG TABLET PO SCH ×2 (09:08→17:04)
[2019-04-12] MEDS: LINAGLIPTIN 5 MG TABLET PO SCH (09:08)
[2019-04-12] MEDS: busPIRone 10 MG TABLET. PO SCH ×3 (09:08→19:52)
[2019-04-12] MEDS: EZETIMIBE 10 MG TABLET PO SCH (09:08)
[2019-04-12] MEDS: FERROUS SULFATE 325 MG TABLET. PO SCH (09:09)
[2019-04-12] MEDS: ISOSORBIDE MONONITRATE ER 30 MG TAB.ER.24H PO SCH (09:09)
[2019-04-12] MEDS: MULTIVITAMIN I-VITE TABLET. PO SCH (09:09)
[2019-04-12] MEDS: LACTOBACILLUS RHAMNOSUS GG 1 CAPSULE. PO SCH ×2 (09:09→19:52)
[2019-04-12] MEDS: ASPIRIN ENTERIC COATED 81 MG TABLET.DR. PO SCH (09:09)
[2019-04-12] MEDS: CALCIUM CARB/VIT D3 500/200 TABLET PO SCH (09:09)
--- NOTE | 2019-04-12 10:59 | NUR ---
WEEKLY ACTIVITY THERAPY NOTE Date of Admission: 04/05/2019 Date of AT Assessment: 04/06/2019 Goal aimed: to increase socialization and relaxation techniques Initial Goal: Pt. will participate in at least one Activity Therapy group per day. Weekly progress towards goal: did not achieve Group participation level: minimal- two groups and one 1:1 Weekly highlights: answering trivia questions on Tuesday, unprompted Behaviors observed: sitting away from group in the day room-oxygen port fixed in wall, social, willing to engage in activities if not sleeping, confused at times needing reminders, pleasant Plan: no change to goal Beneficial adaptations: portable oxygen device, conversational groups, descriptive prompts, loves trivia
--- NOTE | 2019-04-12 11:55 | NUR ---
WEEKLY NOTE: Pt is interactive with staff and appears to be mostly coherent; pt does attend some groups and has moderate participation. Pt has random delusions re: family and where she currently resides. Pt is working with PT and wears continuous oxygen at 3L. Pt will return to her placement once stable. ELOS for the end of next week.
--- NOTE | 2019-04-12 13:12 | NUR ---
Patient up ambulating multiple times without oxygen on. Oxygen Sat at 80% when walked to meal with no O2. CNAs have been informed to keep patient on oxygen 3L when being ambulated to meals and all times. There are no previous notes that state that oxygen was reduced to 2L.
--- NOTE | 2019-04-12 14:52 | NUR ---
Patient is pleasant, calm and cooperative with staff. She remains on 3L oxygen continuously. She takes medications whole accompanied with two glasses of water, and prefers large pills crushed in chocolate ice cream. She spends most of her time in the day room but also takes naps in her room in the afternoon. No delusions noted at this time.
[2019-04-12 15:42] VITALS: BP 123/76
[2019-04-12] MEDS: DULoxetine HCL 60 MG CAPSULE.DR PO SCH (19:52)
[2019-04-12] MEDS: risperiDONE 0.5 MG TABLET. PO SCH (19:54)
--- NOTE | 2019-04-12 22:40 | PDOC ---
Exam Note: Benito Note: Please also refer to the separate dictated note~for this date of service dictated separately.~Patient seen individually. Discussed the patient with Nursing staff reviewed the chart.~Reviewed interim history and current functioning. Reviewed vital signs,~Labs/ Radiology~and current medications noted below. Continue current treatment with the changes noted in the dictated addendum note Assessment: Vital Signs: Vital Signs Date Time Temp Pulse Resp B/P (MAP) Pulse Ox O2 Delivery O2 Flow Rate FiO2 04/12/19 20:42 99 Nasal Cannula 3.0 04/12/19 15:42 99.2 111 22 123/76 (92) I&O Intake and Output 04/12/19 06:59 Intake Total 720 ml Balance 720 ml Intake Oral 720 ml # Voids 1 Labs: Laboratory Tests Test 04/12/19 07:36 04/12/19 11:51 04/12/19 17:20 04/12/19 19:09 Glucose (Fingerstick) 91 mg/dL (70-99) 167 mg/dL (70-99) H 118 mg/dL (70-99) H 247 mg/dL (70-99) H Current Medications: Meds: Current Medications Acetaminophen (Tylenol) 650 mg PRN Q6HRS PRN PO PAIN / TEMP; Start 04/05/19 at 16:00 Multi-Ingredient Ointment (Analgesic [place]) 1 odalys PRN QID PRN TP MUSCLE PAIN; Start 04/05/19 at 16:00 Al Hydroxide/Mg Hydroxide (Mylanta Plus Xs) 15 ml PRN AFTMEALHC PRN PO DYSPEPSIA; Start 04/05/19 at 16:00 Magnesium Hydroxide (Milk Of Magnesia) 2,400 mg PRN QHS PRN PO CONSTIPATION; Start 04/05/19 at 16:00 Acetaminophen (Tylenol) 650 mg PRN Q6HRS PRN PO PAIN / TEMP; Start 04/05/19 at 17:30; Status UNV Albuterol Sulfate (Ventolin) 2.5 mg PRN Q6HRS PRN IH SHORTNESS OF BREATH; Start 04/05/19 at 17:30 Calcium/Vitamin D (Oscal D 500mg/ 200uts) 1 tab DAILY PO Last administered on 04/12/19at 09:09; Start 04/06/19 at 09:00 Dicyclomine HCl (Bentyl) 20 mg PRN Q8HRS PRN PO IRRITABLE BOWEL; Start 04/05/19 at 18:00 Ferrous Sulfate (Feosol) 325 mg DAILY PO Last administered on 04/12/19 09:09; Start 04/06/19 at 09:00 Acetaminophen/ Hydrocodone Bitart (Lortab 5/325) 1 tab PRN Q4HRS PRN PO PAIN; Start 04/05/19 at 17:30 Albuterol/ Ipratropium (Duoneb) 3 ml RTQID NEB Last administered on 04/12/19 20:40; Start 04/05/19 at 20:00 Aspirin (Aspirin Enteric Coated) 81 mg DAILY PO Last administered on 04/12/19 09:09; Start 04/06/19 at 09:00 Bisacodyl (Dulcolax Supp) 10 mg PRN DAILY PRN [place] CONSTIPATION; Start 04/05/19 at 18:00 Non-Formulary Medication (Budesonide (Pulmicort)) 0.5 mg BID IH ; Start 04/05/19 at 21:00; Status UNV Buspirone HCl (Buspar) 10 mg TID PO Last administered on 04/12/19 19:52; Sta rt 04/05/19 at 21:00 Duloxetine HCl (Cymbalta) 60 mg QHS PO Last administered on 04/12/19 19:52; Start 04/05/19 at 21:00 EZETIMIBE (Zetia) 10 mg DAILY PO Last administered on 04/12/19 09:08; Start 04/06/19 at 09:00 Glimepiride (Amaryl) 4 mg BIDWMEALS PO Last administered on 04/12/19 17:04; Start 04/05/19 at 21:00 Haloperidol (Haldol) 5 mg PRN Q8HRS PRN PO PSYCHOSIS Last administered on 04/09/19 01:37; Start 04/05/19 at 18:00 Non-Formulary Medication (Insulin Aspart (Novolog Flexpen)) FSBS 150-2,00; g iv... TIDBFRMEAL SQ ; Start 04/06/19 at 07:30; Status UNV Isosorbide Mononitrate (Imdur) 60 mg DAILY PO Last administered on 04/12/19 09:09; Start 04/06/19 at 09:00 Loperamide HCl (Imodium) 2 mg PRN Q2HR PRN PO DIARRHEA; Start 04/05/19 at 18:15 Ondansetron HCl (Zofran Odt) 4 mg PRN Q6HRS PRN PO NAUSEA/VOMITING; Start 04/05/19 at 18:15 Polyethylene Glycol (miraLAX) 17 gm PRN DAILY PRN PO CONSTIPATION; Start 04/05/19 at 18:15 Risperidone (RisperDAL) 1 mg QHS PO Last administered on 04/11/19 19:51; St art 04/05/19 at 21:00; Stop 04/12/19 at 12:18; Status DC Linagliptin (Tradjenta) 5 mg DAILY PO Last administered on 04/12/19 09:08; Start 04/06/19 at 09:00 Multivitamins/ Minerals (I-[place]) 1 tab DAILY PO Last administered on 04/12/19 09:09; Start 04/06/19 at 09:00 Budesonide (Pulmicort) 0.5 mg RTBID NEB Last administered on 04/12/19 20:40; Start 04/05/19 at 20:00 Insulin Human Lispro (HumaLOG) 0-5 UNITS TIDWMEALS SQ Last administered on 04/12/19 12:49; Start 04/06/19 at 08:00 Levofloxacin (Levaquin) 500 mg DAILY07 PO Last administered on 04/12/19 06:06; Start 04/09/19 at 22:00; Stop 04/16/19 at 22:00 Lactobacillus Rhamnosus (Culturelle) 1 cap BID PO Last administered on 04/12/19 19:52; Start 04/09/19 at 21:00 Risperidone (RisperDAL) 0.75 mg QHS PO Last administered on 04/12/19 19:54; Start 04/12/19 at 21:00 Active Scripts Active Reported Dicyclomine Hcl 20 Mg Tablet 20 Mg PO PRN Q8HRS PRN Ventolin Hfa Inhaler (Albuterol Sulfate) 18 Gm Hfa.aer.ad 2 Puff IH PRN Q6HRS PRN Tylenol (Acetaminophen) 325 Mg Tablet 650 Mg PO PRN Q6HRS PRN Risperdal (Risperidone) 1 Mg Tablet 1 Mg PO QHS Pulmicort (Budesonide) 0.5 Mg/2 Ml Ampul.neb 0.5 Mg IH BID Preservision Areds Softgel (Vit A/Vit C/Vit E/Zinc/Copper) 1 Each Capsule 1 Each PO DAILY Miralax (Polyethylene Glycol 3350) 17 Gm Powd.pack 17 Gm PO PRN DAILY PRN Ondansetron Odt (Ondansetron) 4 Mg Tab.rapdis 4 Mg PO PRN Q6HRS PRN Loperamide (Loperamide Hcl) 2 Mg Tablet 2 Mg PO PRN Q2HR PRN Januvia (Sitagliptin Phosphate) 100 Mg Tablet 100 Mg PO DAILY Isosorbide Mononitrate Er (Isosorbide Mononitrate) 60 Mg Tab.er.24h 60 Mg PO DAILY Novolog Flexpen (Insulin Aspart) 100 Unit/1 Ml Insuln.pen 2-6 Unit SQ TIDBFRMEAL Hydrocodone-Apap 5-325 (Hydrocodone Bit/Acetaminophen) 1 Each Tablet 1 Tab PO PRN Q4HRS PRN Haloperidol 5 Mg Tablet 5 Mg PO PRN Q8HRS PRN Glimepiride 4 Mg Tablet 4 Mg PO BID Ferrous Sulfate 325 Mg Tablet 325 Mg PO DAILY Zetia (Ezetimibe) 10 Mg Tablet 10 Mg PO DAILY Cymbalta (Duloxetine Hcl) 60 Mg Capsule. 60 Mg PO QHS Buspirone Hcl 10 Mg Tablet 10 Mg PO TID Bisacodyl 10 Mg Supp.rect 10 Mg RC PRN DAILY PRN Aspirin Ec (Aspirin) 81 Mg Tablet.dr 81 Mg PO DAILY Duoneb 0.5-3(2.5) Mg/3 Ml (Albuterol/Ipratropium) 3 Ml Ampul.neb 3 Ml NEB QID Calcium 500 + Vit D 200 Tablet (Calcium Carbonate/Vitamin D3) 1 Each Tablet 1 Each PO DAILY I have reviewed the current psychotropics carefully including drug interactions. Risk benefit ratio favors no change other than as noted in my dictated progress note. Diagnosis: Problems: (1) Dementia with behavioral disturbance (2) Delusional disorder (3) Dementia, vascular, with depression (4) Dementia, vascular, with delusions (5) Major depression with psychotic features VIRY COTE MD April 12, 2019:40
--- NOTE | 2019-04-13 01:10 | NUR ---
Nursing Note Assumed care of patient @1845. Patient in day room watching TV and visiting with other patients. Patient calm and cooperative with assessment and medications.
[2019-04-13] MEDS: IPRATRPIUM/ALBUTEROL 0.5/2.5MG 3 ML NEBU. NEB SCH ×4 (05:14→20:43)
[2019-04-13] MEDS: BUDESONIDE 0.5 MG/2 ML NEBU NEB SCH ×2 (05:14→20:43)
[2019-04-13] MEDS: levoFLOXacin 500 MG TABLET PO SCH (05:55)
[2019-04-13 06:06] VITALS: BP 103/68
[2019-04-13] MEDS: INSULIN LISPRO 300 UNITS/3 ML INSULN.PEN. SQ SCH ×3 (09:06→17:22)
[2019-04-13] MEDS: LACTOBACILLUS RHAMNOSUS GG 1 CAPSULE. PO SCH ×2 (10:33→20:12)
[2019-04-13] MEDS: FERROUS SULFATE 325 MG TABLET. PO SCH (10:33)
[2019-04-13] MEDS: ISOSORBIDE MONONITRATE ER 30 MG TAB.ER.24H PO SCH (10:34)
[2019-04-13] MEDS: MULTIVITAMIN I-VITE TABLET. PO SCH (10:34)
[2019-04-13] MEDS: GLIMEPIRIDE 2 MG TABLET PO SCH ×2 (10:34→17:23)
[2019-04-13] MEDS: busPIRone 10 MG TABLET. PO SCH ×3 (10:34→20:12)
[2019-04-13] MEDS: LINAGLIPTIN 5 MG TABLET PO SCH (10:34)
[2019-04-13] MEDS: CALCIUM CARB/VIT D3 500/200 TABLET PO SCH (10:34)
[2019-04-13] MEDS: ASPIRIN ENTERIC COATED 81 MG TABLET.DR. PO SCH (10:34)
[2019-04-13] MEDS: EZETIMIBE 10 MG TABLET PO SCH (10:36)
--- NOTE | 2019-04-13 14:16 | NUR ---
Patient continues on 3L oxygen continuous. She is alert, oriented x3 and cooperative with staff and interactive with peers. Compliant with all medications and breathing treatments. She has spent most of the day in the day room and denies delusions/hallucinations when asked.
[2019-04-13 16:07] VITALS: BP 125/82
--- NOTE | 2019-04-13 19:45 | PN ---
DATE: 04/11/2019 PSYCHIATRIC PROGRESS NOTE This late entry 04/11/2019 covers the elements not covered in my initial note. SUBJECTIVE: I met with the patient in the evening of 04/11/2019. The patient slept 7-1/2 hours previous night. She does have a UTI and is on Levaquin for this. She is oriented to the year and date, but was eating chocolate ice cream after her supper when I met with her. She repeatedly stated she does not want to gain weight. She remains on O2 supplements. REVIEW OF SYSTEMS: Impaired ambulation, in wheelchair. No CV, , GI system symptoms on review. MENTAL STATUS EXAM: Oriented to herself and situation. Speech has some latency, coherent. Insight, judgment, recent and remote memory, attention, concentration, fund of knowledge poor, consistent with her diagnosis. She has not been aggressive. LABORATORY DATA: Reviewed. IMPRESSION: Unchanged from initial note. PLAN: No change from initial note. VIRY COTE MD DR: OSCAR/bhavin JOB#: [id number] / [id number]
[2019-04-13] MEDS: risperiDONE 0.5 MG TABLET. PO SCH (20:12)
[2019-04-13] MEDS: DULoxetine HCL 60 MG CAPSULE.DR PO SCH (20:12)
--- NOTE | 2019-04-13 21:09 | PN ---
DATE: 04/12/2019 PSYCHIATRIC PROGRESS NOTE This late entry 04/12/2019 covers elements not covered in my initial note. SUBJECTIVE: I met with the patient in the evening of 04/12/2019 staffed at a treatment team meeting with the entire team in the morning. The patient slept 7-3/4 hours. Appetite 80%. Alert, oriented. She is depressed, refusing shower during the day, compliant with medications. Delusions for the past 2 days have been much improved, remains confused. REVIEW OF SYSTEMS: Shortness of breath, on O2 supplements; impaired ambulation with walker or wheelchair. No CV, GI, , ENT system symptoms on review. Reliability poor. MENTAL STATUS EXAM: Oriented to herself. Insight, judgment, recent and remote memory, attention, concentration, fund of knowledge poor, consistent with her diagnosis mentioned in my initial note. PLAN: Reduce Risperdal from 1 mg at bedtime down to 0.75 mg p.o. at bedtime since she is not psychotic and we should minimize the atypical antipsychotics. Maintain Cymbalta 60 mg a day, BuSpar 10 t.i.d., Haldol p.r.n. MAN Treasure COTE MD DR: OSCAR/bhavin JOB#: [id number] / [id number]
--- NOTE | 2019-04-13 22:30 | NUR ---
Pt talking to family members on the phone for the first hour of the shift. Pt pleasant and cooperative. Pt compliant with medications.
--- NOTE | 2019-04-13 22:45 | PDOC ---
Exam Note: Benito Note: Please also refer to the separate dictated note~for this date of service dictated separately.~Patient seen individually. Discussed the patient with Nursing staff reviewed the chart.~Reviewed interim history and current functioning. Reviewed vital signs,~Labs/ Radiology~and current medications noted below. Continue current treatment with the changes noted in the dictated addendum note Assessment: Vital Signs: Vital Signs Date Time Temp Pulse Resp B/P (MAP) Pulse Ox O2 Delivery O2 Flow Rate FiO2 04/13/19 20:44 97 Nasal Cannula 2.0 04/13/19 16:07 98.9 104 18 125/82 (96) I&O Intake and Output 04/13/19 06:59 Intake Total 960 ml Balance 960 ml Intake Oral 960 ml # Voids 1 Labs: Laboratory Tests Test 04/13/19 07:37 04/13/19 07:38 04/13/19 11:44 04/13/19 16:29 Glucose (Fingerstick) 100 mg/dL (70-99) H 111 mg/dL (70-99) H 112 mg/dL (70-99) H 137 mg/dL (70-99) H Test 04/13/19 19:36 Glucose (Fingerstick) 216 mg/dL (70-99) H Current Medications: Meds: Current Medications Acetaminophen (Tylenol) 650 mg PRN Q6HRS PRN PO PAIN / TEMP; Start 04/05/19 at 16:00 Multi-Ingredient Ointment (Analgesic [place]) 1 odalys PRN QID PRN TP MUSCLE PAIN; Start 04/05/19 at 16:00 Al Hydroxide/Mg Hydroxide (Mylanta Plus Xs) 15 ml PRN AFTMEALHC PRN PO DYSPEPS IA; Start 04/05/19 at 16:00 Magnesium Hydroxide (Milk Of Magnesia) 2,400 mg PRN QHS PRN PO CONSTIPATION; Start 04/05/19 at 16:00 Acetaminophen (Tylenol) 650 mg PRN Q6HRS PRN PO PAIN / TEMP; Start 04/05/19 at 17:30; Status UNV Albuterol Sulfate (Ventolin) 2.5 mg PRN Q6HRS PRN IH SHORTNESS OF BREATH; Start 04/05/19 at 17:30 Calcium/Vitamin D (Oscal D 500mg/ 200uts) 1 tab DAILY PO Last administered on 04/13/19 10:34; Start 04/06/19 at 09:00 Dicyclomine HCl (Bentyl) 20 mg PRN Q8HRS PRN PO IRRITABLE BOWEL; Start 04/05/19 at 18:00 Ferrous Sulfate (Feosol) 325 mg DAILY PO Last administered on 04/13/19 10:33; Start 04/06/19 at 09:00 Acetaminophen/ Hydrocodone Bitart (Lortab 5/325) 1 tab PRN Q4HRS PRN PO PAIN; Start 04/05/19 at 17:30 Albuterol/ Ipratropium (Duoneb) 3 ml RTQID NEB Last administered on 04/13/19 20:43; Start 04/05/19 at 20:00 Aspirin (Aspirin Enteric Coated) 81 mg DAILY PO Last administered on 04/13/19 10:34; Start 04/06/19 at 09:00 Bisacodyl (Dulcolax Supp) 10 mg PRN DAILY PRN ME CONSTIPATION; Start 04/05/19 at 18:00 Non-Formulary Medication (Budesonide (Pulmicort)) 0.5 mg BID IH ; Start 04/05/19 at 21:00; Status UNV Buspirone HCl (Buspar) 10 mg TID PO Last administered on 04/13/19 20:12; Start 04/05/19 at 21:00 Duloxetine HCl (Cymbalta) 60 mg QHS PO Last administered on 04/13/19 20:12; Start 04/05/19 at 21:00 EZETIMIBE (Zetia) 10 mg DAILY PO Last administered on 04/13/19 10:36; Start 04/06/19 at 09:00 Glimepiride (Amaryl) 4 mg BIDWMEALS PO Last administered on 04/13/19 17:23; Start 04/05/19 at 21:00 Haloperidol (Haldol) 5 mg PRN Q8HRS PRN PO PSYCHOSIS Last administered on 04/09/19 01:37; Start 04/05/19 at 18:00 Non-Formulary Medication (Insulin Aspart (Novolog Flexpen)) FSBS 150-2,00; giv... TIDBFRMEAL SQ ; Start 04/06/19 at 07:30; Status UNV Isosorbide Mononitrate (Imdur) 60 mg DAILY PO Last administered on 04/13/19 10:34; Start 04/06/19 at 09:00 Loperamide HCl (Imodium) 2 mg PRN Q2HR PRN PO DIARRHEA; Start 04/05/19 at 18:15 Ondansetron HCl (Zofran Odt) 4 mg PRN Q6HRS PRN PO NAUSEA/VOMITING; Start 04/05/19 at 18:15 Polyethylene Glycol (miraLAX) 17 gm PRN DAILY PRN PO CONSTIPATION; Start 04/05/19 at 18:15 Risperidone (RisperDAL) 1 mg QHS PO Last administered on 04/11/19 19:51; Start 04/05/19 at 21:00; Stop 04/12/19 at 12:18; Status DC Linagliptin (Tradjenta) 5 mg DAILY PO Last administered on 04/13/19 10:34; Start 04/06/19 at 09:00 Multivitamins/ Minerals (I-[place]) 1 tab DAILY PO Last administered on 04/13/19 10:34; Start 04/06/19 at 09:00 Budesonide (Pulmicort) 0.5 mg RTBID NEB Last administered on 04/13/19 20:43; Start 04/05/19 at 20:00 Insulin Human Lispro (HumaLOG) 0-5 UNITS TIDWMEALS SQ Last administered on 04/12/19 12:49; Start 04/06/19 at 08:00 Levofloxacin (Levaquin) 500 mg DAILY07 PO Last administered on 04/13/19 05:55; Start 04/09/19 at 22:00; Stop 04/16/19 at 22:00 Lactobacillus Rhamnosus (Culturelle) 1 cap BID PO Last administered on 04/13/19 20:12; Start 04/09/19 at 21:00 Risperidone (RisperDAL) 0.75 mg QHS PO Last administered on 04/13/19 20:12; Start 04/12/19 at 21:00 Active Scripts Active Reported Dicyclomine Hcl 20 Mg Tablet 20 Mg PO PRN Q8HRS PRN Ventolin Hfa Inhaler (Albuterol Sulfate) 18 Gm Hfa.aer.ad 2 Puff IH PRN Q6HRS PRN Tylenol (Acetaminophen) 325 Mg Tablet 650 Mg PO PRN Q6HRS PRN Risperdal (Risperidone) 1 Mg Tablet 1 Mg PO QHS Pulmicort (Budesonide) 0.5 Mg/2 Ml Ampul.neb 0.5 Mg IH BID Preservision Areds Softgel (Vit A/Vit C/Vit E/Zinc/Copper) 1 Each Capsule 1 Each PO DAILY Miralax (Polyethylene Glycol 3350) 17 Gm Powd.pack 17 Gm PO PRN DAILY PRN Ondansetron Odt (Ondansetron) 4 Mg Tab.rapdis 4 Mg PO PRN Q6HRS PRN Loperamide (Loperamide Hcl) 2 Mg Tablet 2 Mg PO PRN Q2HR PRN Januvia (Sitagliptin Phosphate) 100 Mg Tablet 100 Mg PO DAILY Isosorbide Mononitrate Er (Isosorbide Mononitrate) 60 Mg Tab.er.24h 60 Mg PO DAILY Novolog Flexpen (Insulin Aspart) 100 Unit/1 Ml Insuln.pen 2-6 Unit SQ TIDBFRMEAL Hydrocodone-Apap 5-325 (Hydrocodone Bit/Acetaminophen) 1 Each Tablet 1 Tab PO PRN Q4HRS PRN Haloperidol 5 Mg Tablet 5 Mg PO PRN Q8HRS PRN Glimepiride 4 Mg Tablet 4 Mg PO BID Ferrous Sulfate 325 Mg Tablet 325 Mg PO DAILY Zetia (Ezetimibe) 10 Mg Tablet 10 Mg PO DAILY Cymbalta (Duloxetine Hcl) 60 Mg Capsule.dr 60 Mg PO QHS Buspirone Hcl 10 Mg Tablet 10 Mg PO TID Bisacodyl 10 Mg Supp.rect 10 Mg RC PRN DAILY PRN Aspirin Ec (Aspirin) 81 Mg Tablet.dr 81 Mg PO DAILY Duoneb 0.5-3(2.5) Mg/3 Ml (Albuterol/Ipratropium) 3 Ml Ampul.neb 3 Ml NEB QID Calcium 500 + Vit D 200 Tablet (Calcium Carbonate/Vitamin D3) 1 Each Tablet 1 Each PO DAILY I have reviewed the current psychotropics carefully including drug interactions. Risk benefit ratio favors no change other than as noted in my dictated progress note. Diagnosis: Problems: (1) Dementia with behavioral disturbance (2) Delusional disorder (3) Dementia, vascular, with depression (4) Dementia, vascular, with delusions (5) Major depression with psychotic features VIRY COTE MD April 13, 2019 22:45
[2019-04-14] MEDS: IPRATRPIUM/ALBUTEROL 0.5/2.5MG 3 ML NEBU. NEB SCH ×4 (05:41→20:35)
[2019-04-14] MEDS: BUDESONIDE 0.5 MG/2 ML NEBU NEB SCH ×2 (05:41→20:36)
[2019-04-14 06:20] VITALS: BP 97/64
[2019-04-14] MEDS: levoFLOXacin 500 MG TABLET PO SCH (06:32)
[2019-04-14] MEDS: INSULIN LISPRO 300 UNITS/3 ML INSULN.PEN. SQ SCH ×3 (08:00→17:08)
[2019-04-14] MEDS: GLIMEPIRIDE 2 MG TABLET PO SCH ×2 (09:26→17:06)
[2019-04-14] MEDS: busPIRone 10 MG TABLET. PO SCH ×3 (09:27→21:24)
[2019-04-14] MEDS: FERROUS SULFATE 325 MG TABLET. PO SCH (09:27)
[2019-04-14] MEDS: LACTOBACILLUS RHAMNOSUS GG 1 CAPSULE. PO SCH ×2 (09:27→21:24)
[2019-04-14] MEDS: ASPIRIN ENTERIC COATED 81 MG TABLET.DR. PO SCH (09:27)
[2019-04-14] MEDS: MULTIVITAMIN I-VITE TABLET. PO SCH (09:27)
[2019-04-14] MEDS: ISOSORBIDE MONONITRATE ER 30 MG TAB.ER.24H PO SCH (09:28)
[2019-04-14] MEDS: EZETIMIBE 10 MG TABLET PO SCH (09:29)
[2019-04-14] MEDS: LINAGLIPTIN 5 MG TABLET PO SCH (09:29)
[2019-04-14] MEDS: CALCIUM CARB/VIT D3 500/200 TABLET PO SCH (09:29)
[2019-04-14 09:46] VITALS: BP 130/82
--- NOTE | 2019-04-14 12:44 | NUR ---
Patient has had a cheerful morning. Took medications as prescribed and allowed for morning assessment. Patient did a great job participating in morning group. Patient enjoyed getting her hair done and has been laughing, talking, smiling to other patients and staff members. No signs of agitation noted, will continue to monitor.
[2019-04-14 15:44] VITALS: BP 97/62
[2019-04-14] MEDS: DULoxetine HCL 60 MG CAPSULE.DR PO SCH (21:24)
[2019-04-14] MEDS: risperiDONE 0.5 MG TABLET. PO SCH (21:24)
--- NOTE | 2019-04-14 22:41 | PDOC ---
Exam Note: Benito Note: Please also refer to the separate dictated note~for this date of service dictated separately.~Patient seen individually. Discussed the patient with Nursing staff reviewed the chart.~Reviewed interim history and current functioning. Reviewed vital signs,~Labs/ Radiology~and current medications noted below. Continue current treatment with the changes noted in the dictated addendum note Assessment: Vital Signs: Vital Signs Date Time Temp Pulse Resp B/P (MAP) Pulse Ox O2 Delivery O2 Flow Rate FiO2 04/14/19 20:39 96 Nasal Cannula 2.0 04/14/19 15:44 98.1 99 18 97/62 (74) I&O Intake and Output 04/14/19 06:59 Intake Total 1080 ml Balance 1080 ml Intake Oral 1080 ml Labs: Laboratory Tests Test 04/14/19 07:30 04/14/19 11:46 04/14/19 16:27 04/14/19 19:15 Glucose (Fingerstick) 140 mg/dL (70-99) H 145 mg/dL (70-99) H 272 mg/dL (70-99) H 124 mg/dL (70-99) H Current Medications: Meds: Current Medications Acetaminophen (Tylenol) 650 mg PRN Q6HRS PRN PO PAIN / TEMP; Start 04/05/19 at 16:00 Multi-Ingredient Ointment (Analgesic [place]) 1 odalys PRN QID PRN TP MUSCLE PAIN; Start 04/05/19 at 16:00 Al Hydroxide/Mg Hydroxide (Mylanta Plus Xs) 15 ml PRN AFTMEALHC PRN PO DYSPEPSIA; Start 04/05/19 at 16:00 Magnesium Hydroxide (Milk Of Magnesia) 2,400 mg PRN QHS PRN PO CONSTIPATION; Start 04/05/19 at 16:00 Acetaminophen (Tylenol) 650 mg PRN Q6HRS PRN PO PAIN / TEMP; Start 04/05/19 at 17:30; Status UNV Albuterol Sulfate (Ventolin) 2.5 mg PRN Q6HRS PRN IH SHORTNESS OF BREATH; Start 04/05/19 at 17:30 Calcium/Vitamin D (Oscal D 500mg/ 200uts) 1 tab DAILY PO Last administered on 04/14/19at 09:29; Start 04/06/19 at 09:00 Dicyclomine HCl (Bentyl) 20 mg PRN Q8HRS PRN PO IRRITABLE BOWEL; Start 04/05/19 at 18:00 Ferrous Sulfate (Feosol) 325 mg DAILY PO Last administered on 04/14/19 09:27; Start 04/06/19 at 09:00 Acetaminophen/ Hydrocodone Bitart (Lortab 5/325) 1 tab PRN Q4HRS PRN PO PAIN; Start 04/05/19 at 17:30 Albuterol/ Ipratropium (Duoneb) 3 ml RTQID NEB Last administered on 04/14/19 20:35; Start 04/05/19 at 20:00 Aspirin (Aspirin Enteric Coated) 81 mg DAILY PO Last administered on 04/14/19 09:27; Start 04/06/19 at 09:00 Bisacodyl (Dulcolax Supp) 10 mg PRN DAILY PRN [place] CONSTIPATION; Start 04/05/19 at 18:00 Non-Formulary Medication (Budesonide (Pulmicort)) 0.5 mg BID IH ; Start 04/05/19 at 21:00; Status UNV Buspirone HCl (Buspar) 10 mg TID PO Last administered on 04/14/19 21:24; Start 04/05/19 at 21:00 Duloxetine HCl (Cymbalta) 60 mg QHS PO Last administered on 04/14/19 21:24; Start 04/05/19 at 21:00 EZETIMIBE (Zetia) 10 mg DAILY PO Last administered on 04/14/19 09:29; Start 04/06/19 at 09:00 Glimepiride (Amaryl) 4 mg BIDWMEALS PO Last administered on 04/14/19 17:06; Start 04/05/19 at 21:00 Haloperidol (Haldol) 5 mg PRN Q8HRS PRN PO PSYCHOSIS Last administered on 04/09/19 01:37; Start 04/05/19 at 18:00 Non-Formulary Medication (Insulin Aspart (Novolog Flexpen)) FSBS 150-2,00; giv... TIDBFRMEAL SQ ; Start 04/06/19 at 07:30; Status UNV Isosorbide Mononitrate (Imdur) 60 mg DAILY PO Last administered on 04/14/19 09:28; Start 04/06/19 at 09:00 Loperamide HCl (Imodium) 2 mg PRN Q2HR PRN PO DIARRHEA; Start 04/05/19 at 18:15 Ondansetron HCl (Zofran Odt) 4 mg PRN Q6HRS PRN PO NAUSEA/VOMITING; Start 04/05/19 at 18:15 Polyethylene Glycol (miraLAX) 17 gm PRN DAILY PRN PO CONSTIPATION; Start 04/05/19 at 18:15 Risperidone (RisperDAL) 1 mg QHS PO Last administered on 04/11/19 19:51; Start 04/05/19 at 21:00; Stop 04/12/19 at 12:18; Status DC Linagliptin (Tradjenta) 5 mg DAILY PO Last administered on 04/14/19 09:29; Start 04/06/19 at 09:00 Multivitamins/ Minerals (I-Newton) 1 tab DAILY PO Last administered on 04/14/19 09:27; Start 04/06/19 at 09:00 Budesonide (Pulmicort) 0.5 mg RTBID NEB Last administered on 04/14/19 20:36; Start 04/05/19 at 20:00 Insulin Human Lispro (HumaLOG) 0-5 UNITS TIDWMEALS SQ Last administered on 04/14/19 17:08; Start 04/06/19 at 08:00 Levofloxacin (Levaquin) 500 mg DAILY07 PO Last administered on 04/14/19 06:32; Start 04/09/19 at 22:00; Stop 04/16/19 at 22:00 Lactobacillus Rhamnosus (Culturelle) 1 cap BID PO Last administered on 04/14/19 21:24; Start 04/09/19 at 21:00 Risperidone (RisperDAL) 0.75 mg QHS PO Last administered on 04/14/19 21:24; Start 04/12/19 at 21:00 Active Scripts Active Reported Dicyclomine Hcl 20 Mg Tablet 20 Mg PO PRN Q8HRS PRN Ventolin Hfa Inhaler (Albuterol Sulfate) 18 Gm Hfa.aer.ad 2 Puff IH PRN Q6HRS PRN Tylenol (Acetaminophen) 325 Mg Tablet 650 Mg PO PRN Q6HRS PRN Risperdal (Risperidone) 1 Mg Tablet 1 Mg PO QHS Pulmicort (Budesonide) 0.5 Mg/2 Ml Ampul.neb 0.5 Mg IH BID Preservision Areds Softgel (Vit A/Vit C/Vit E/Zinc/Copper) 1 Each Capsule 1 Each PO DAILY Miralax (Polyethylene Glycol 3350) 17 Gm Powd.pack 17 Gm PO PRN DAILY PRN Ondansetron Odt (Ondansetron) 4 Mg Tab.rapdis 4 Mg PO PRN Q6HRS PRN Loperamide (Loperamide Hcl) 2 Mg Tablet 2 Mg PO PRN Q2HR PRN Januvia (Sitagliptin Phosphate) 100 Mg Tablet 100 Mg PO DAILY Isosorbide Mononitrate Er (Isosorbide Mononitrate) 60 Mg Tab.er.24h 60 Mg PO DAILY Novolog Flexpen (Insulin Aspart) 100 Unit/1 Ml Insuln.pen 2-6 Unit SQ TIDBFRMEAL Hydrocodone-Apap 5-325 (Hydrocodone Bit/Acetaminophen) 1 Each Tablet 1 Tab PO PRN Q4HRS PRN Haloperidol 5 Mg Tablet 5 Mg PO PRN Q8HRS PRN Glimepiride 4 Mg Tablet 4 Mg PO BID Ferrous Sulfate 325 Mg Tablet 325 Mg PO DAILY Zetia (Ezetimibe) 10 Mg Tablet 10 Mg PO DAILY Cymbalta (Duloxetine Hcl) 60 Mg Capsule.dr 60 Mg PO QHS Buspirone Hcl 10 Mg Tablet 10 Mg PO TID Bisacodyl 10 Mg Supp.rect 10 Mg RC PRN DAILY PRN Aspirin Ec (Aspirin) 81 Mg Tablet.dr 81 Mg PO DAILY Duoneb 0.5-3(2.5) Mg/3 Ml (Albuterol/Ipratropium) 3 Ml Ampul.neb 3 Ml NEB QID Calcium 500 + Vit D 200 Tablet (Calcium Carbonate/Vitamin D3) 1 Each Tablet 1 Each PO DAILY I have reviewed the current psychotropics carefully including drug interactions. Risk benefit ratio favors no change other than as noted in my dictated progress note. Diagnosis: Problems: (1) Dementia with behavioral disturbance (2) Delusional disorder (3) Dementia, vascular, with depression (4) Dementia, vascular, with delusions (5) Major depression with psychotic features VIRY COTE MD April 14, 2019 22:41
--- NOTE | 2019-04-15 01:18 | NUR ---
She was sitting out in the day room this evening with 02 on, when this fha underwriter took her HS medications to her. She appeared calm and was interacting appropriately with the staff and other resident's. She has been compliant with taking her HS medications this evening.
[2019-04-15] MEDS: levoFLOXacin 500 MG TABLET PO SCH (05:09)
[2019-04-15] MEDS: IPRATRPIUM/ALBUTEROL 0.5/2.5MG 3 ML NEBU. NEB SCH ×4 (05:17→20:27)
--- NOTE | 2019-04-15 06:26 | NUR ---
Pt. this morning was C/O some pain to the right upper arm. She said that she have had surgery on that arm prior d/t a fracture. Their was a hard knot on the anterior side in the middle of her humerus. Pt. think it is swollen, to me it look a little bit bigger then the other arm. She said it hurts when she move it, but was unable to describe the pain or rate it. She said that she have had pain in that arm before and that this pain is the same. Will give her PRN Tylenol.
[2019-04-15] MEDS: ACETAMINOPHEN 325 MG TABLET PO PRN (06:39)
[2019-04-15 07:07] VITALS: BP 121/74
[2019-04-15] MEDS: INSULIN LISPRO 300 UNITS/3 ML INSULN.PEN. SQ SCH ×3 (08:00→17:00)
[2019-04-15 08:47] LABS: BASO # 0.1 x10^3/uL (0.0-0.2); BASO % 1 % (0-3); EOS # 0.3 x10^3/uL (0.0-0.7); EOS % 3 % (0-3); HEMATOCRIT 36.7 % (36.0-47.0); HEMOGLOBIN 12.4 g/dL (12.0-15.5); LYMPH # 1.6 x10^3/uL (1.0-4.8); LYMPH % 16 % (24-48); MEAN CORPUSCULAR HEMOGLOBIN 33 pg (25-35); MEAN CORPUSCULAR HGB CONC 34 g/dL (31-37); MEAN CORPUSCULAR VOLUME 98 fL (79-100); MONO # 0.9 x10^3/uL (0.0-1.1); MONO % 9 % (0-9); NEUT # 6.9 x10^3uL (1.8-7.7); NEUT % 71 % (31-73); PLATELET COUNT 265 x10^3/uL (140-400); RED BLOOD COUNT 3.76 x10^6/uL (3.50-5.40); RED CELL DISTRIBUTION WIDTH 13.3 % (11.5-14.5); WHITE BLOOD COUNT 9.8 x10^3/uL (4.0-11.0)
[2019-04-15 09:07] LABS: ALBUMIN 3.2 g/dL (3.4-5.0); CALCIUM 9.4 mg/dL (8.5-10.1); GFR 53.9; POTASSIUM 3.8 mmol/L (3.5-5.1); TOTAL BILIRUBIN 0.6 mg/dL (0.2-1.0); TOTAL PROTEIN 6.5 g/dL (6.4-8.2)
[2019-04-15] MEDS: busPIRone 10 MG TABLET. PO SCH ×3 (09:30→21:19)
[2019-04-15] MEDS: FERROUS SULFATE 325 MG TABLET. PO SCH (09:30)
[2019-04-15] MEDS: LACTOBACILLUS RHAMNOSUS GG 1 CAPSULE. PO SCH ×2 (09:30→21:19)
[2019-04-15] MEDS: MULTIVITAMIN I-VITE TABLET. PO SCH (09:31)
[2019-04-15] MEDS: CALCIUM CARB/VIT D3 500/200 TABLET PO SCH (09:31)
[2019-04-15] MEDS: ISOSORBIDE MONONITRATE ER 30 MG TAB.ER.24H PO SCH (09:32)
[2019-04-15] MEDS: LINAGLIPTIN 5 MG TABLET PO SCH (09:32)
[2019-04-15] MEDS: ASPIRIN ENTERIC COATED 81 MG TABLET.DR. PO SCH (09:32)
[2019-04-15] MEDS: EZETIMIBE 10 MG TABLET PO SCH (09:33)
[2019-04-15] MEDS: GLIMEPIRIDE 2 MG TABLET PO SCH ×2 (09:58→16:28)
[2019-04-15] MEDS: BUDESONIDE 0.5 MG/2 ML NEBU NEB SCH ×2 (10:29→20:30)
[2019-04-15 16:06] VITALS: BP 114/74
--- NOTE | 2019-04-15 18:49 | NUR ---
Patient cooperative and pleasant all day. Participated in group this afternoon, took all medications without problems. Currently resting in dayroom. Will continue to monitor.
[2019-04-15] MEDS: DULoxetine HCL 60 MG CAPSULE.DR PO SCH (21:19)
[2019-04-15] MEDS: risperiDONE 0.5 MG TABLET. PO SCH (21:19)
--- NOTE | 2019-04-15 22:31 | PDOC ---
Exam Note: Benito Note: Please also refer to the separate dictated note~for this date of service dictated separately.~Patient seen individually. Discussed the patient with Nursing staff reviewed the chart.~Reviewed interim history and current functioning. Reviewed vital signs,~Labs/ Radiology~and current medications noted below. Continue current treatment with the changes noted in the dictated addendum note Assessment: Vital Signs: Vital Signs Date Time Temp Pulse Resp B/P (MAP) Pulse Ox O2 Delivery O2 Flow Rate FiO2 04/15/19 20:34 98 Nasal Cannula 2.0 04/15/19 16:06 97.8 98 18 114/74 (87) I&O Intake and Output 04/15/19 06:59 Intake Total 840 ml Balance 840 ml Intake Oral 840 ml # Voids 10 Labs: Laboratory Tests Test 04/15/19 07:24 04/15/19 07:40 04/15/19 11:32 04/15/19 16:57 Glucose (Fingerstick) 79 mg/dL (70-99) 88 mg/dL (70-99) 133 mg/dL (70-99) H White Blood Count 9.8 x10^3/uL (4.0-11.0) Red Blood Count 3.76 x10^6/uL (3.50-5.40) Hemoglobin 12.4 g/dL (12.0-15.5) Hematocrit 36.7 % (36.0-47.0) Mean Corpuscular Volume 98 fL (79-100) Mean Corpuscular Hemoglobin 33 pg (25-35) Mean Corpuscular Hemoglobin Concent 34 g/dL (31-37) Red Cell Distribution Width 13.3 % (11.5-14.5) Platelet Count 265 x10^3/uL (140-400) Neutrophils (%) (Auto) 71 % (31-73) Lymphocytes (%) (Auto) 16 % (24-48) L Monocytes (%) (Auto) 9 % (0-9) Eosinophils (%) (Auto) 3 % (0-3) Basophils (%) (Auto) 1 % (0-3) Neutrophils # (Auto) 6.9 x10^3uL (1.8-7.7) Lymphocytes # (Auto) 1.6 x10^3/uL (1.0-4.8) Monocytes # (Auto) 0.9 x10^3/uL (0.0-1.1) Eosinophils # (Auto) 0.3 x10^3/uL (0.0-0.7) Basophils # (Auto) 0.1 x10^3/uL (0.0-0.2) Sodium Level 139 mmol/L (136-145) Potassium Level 3.8 mmol/L (3.5-5.1) Chloride Level 101 mmol/L (98-107) Carbon Dioxide Level 31 mmol/L (21-32) Anion Gap 7 (6-14) Blood Urea Nitrogen 9 mg/dL (7-20) Creatinine 1.0 mg/dL (0.6-1.0) Estimated GFR (Cockcroft-Gault) 53.9 BUN/Creatinine Ratio 9 (6-20) Glucose Level 61 mg/dL (70-99) L Calcium Level 9.4 mg/dL (8.5-10.1) Total Bilirubin 0.6 mg/dL (0.2-1.0) Aspartate Amino Transferase (AST) 34 U/L (15-37) Alanine Aminotransferase (ALT) 34 U/L (14-59) Alkaline Phosphatase 110 U/L (46-116) Total Protein 6.5 g/dL (6.4-8.2) Albumin 3.2 g/dL (3.4-5.0) L Albumin/Globulin Ratio 1.0 (1.0-1.7) Test 04/15/19 19:52 Glucose (Fingerstick) 173 mg/dL (70-99) H Current Medications: Meds: Current Medications Acetaminophen (Tylenol) 650 mg PRN Q6HRS PRN PO PAIN / TEMP Last administered on 04/15/19at 06:39; Start 04/05/19 at 16:00 Multi-Ingredient Ointment (Analgesic [place]) 1 odalys PRN QID PRN TP MUSCLE PAIN; Start 04/05/19 at 16:00 Al Hydroxide/Mg Hydroxide (Mylanta Plus Xs) 15 ml PRN AFTMEALHC PRN PO DYSPEPSIA; Start 04/05/19 at 16:00 Magnesium Hydroxide (Milk Of Magnesia) 2,400 mg PRN QHS PRN PO CONSTIPATION; Start 04/05/19 at 16:00 Acetaminophen (Tylenol) 650 mg PRN Q6HRS PRN PO PAIN / TEMP; Start 04/05/19 at 17:30; Status UNV Albuterol Sulfate (Ventolin) 2.5 mg PRN Q6HRS PRN IH SHORTNESS OF BREATH; Start 04/05/19 at 17:30 Calcium/Vitamin D (Oscal D 500mg/ 200uts) 1 tab DAILY PO Last administered on 04/15/19 09:31; Start 04/06/19 at 09:00 Dicyclomine HCl (Bentyl) 20 mg PRN Q8HRS PRN PO IRRITABLE BOWEL; Start 04/05/19 at 18:00 Ferrous Sulfate (Feosol) 325 mg DAILY PO Last administered on 04/15/19 09:30; Start 04/06/19 at 09:00 Acetaminophen/ Hydrocodone Bitart (Lortab 5/325) 1 tab PRN Q4HRS PRN PO PAIN; Start 04/05/19 at 17:30 Albuterol/ Ipratropium (Duoneb) 3 ml RTQID NEB Last administered on 04/15/19at 20:27; Start 04/05/19 at 20:00 Aspirin (Aspirin Enteric Coated) 81 mg DAILY PO Last administered on 04/15/19 09:32; Start 04/06/19 at 09:00 Bisacodyl (Dulcolax Supp) 10 mg PRN DAILY PRN [place] CONSTIPATION; Start 04/05/19 at 18:00 Non-Formulary Medication (Budesonide (Pulmicort)) 0.5 mg BID IH ; Start 04/05/19 at 21:00; Status UNV Buspirone HCl (Buspar) 10 mg TID PO Last administered on 04/15/19 21:19; Start 04/05/19 at 21:00 Duloxetine HCl (Cymbalta) 60 mg QHS PO Last administered on 04/15/19 21:19; Start 04/05/19 at 21:00 EZETIMIBE (Zetia) 10 mg DAILY PO Last administered on 04/15/19 09:33; Start 04/06/19 at 09:00 Glimepiride (Amaryl) 4 mg BIDWMEALS PO Last administered on 04/15/19at 16:28; Start 04/05/19 at 21:00 Haloperidol (Haldol) 5 mg PRN Q8HRS PRN PO PSYCHOSIS Last administered on 04/09/19 01:37; Start 04/05/19 at 18:00 Non-Formulary Medication (Insulin Aspart (Novolog Flexpen)) FSBS 150-2,00; giv... TIDBFRMEAL SQ ; Start 04/06/19 at 07:30; Status UNV Isosorbide Mononitrate (Imdur) 60 mg DAILY PO Last administered on 04/15/19at 09:32; Start 04/06/19 at 09:00 Loperamide HCl (Imodium) 2 mg PRN Q2HR PRN PO DIARRHEA; Start 04/05/19 at 18:15 Ondansetron HCl (Zofran Odt) 4 mg PRN Q6HRS PRN PO NAUSEA/VOMITING; Start 04/05/19 at 18:15 Polyethylene Glycol (miraLAX) 17 gm PRN DAILY PRN PO CONSTIPATION; Start 04/05/19 at 18:15 Risperidone (RisperDAL) 1 mg QHS PO Last administered on 04/11/19at 19:51; Start 04/05/19 at 21:00; Stop 04/12/19 at 12:18; Status DC Linagliptin (Tradjenta) 5 mg DAILY PO Last administered on 04/15/19 09:32; Start 04/06/19 at 09:00 Multivitamins/ Minerals (I-Newton) 1 tab DAILY PO Last administered on 04/15/19 09:31; Start 04/06/19 at 09:00 Budesonide (Pulmicort) 0.5 mg RTBID NEB Last administered on 04/15/19 20:30; Start 04/05/19 at 20:00 Insulin Human Lispro (HumaLOG) 0-5 UNITS TIDWMEALS SQ Last administered on 04/14/19 17:08; Start 04/06/19 at 08:00 Levofloxacin (Levaquin) 500 mg DAILY07 PO Last administered on 04/15/19 05:09; Start 04/09/19 at 22:00; Stop 04/16/19 at 22:00 Lactobacillus Rhamnosus (Culturelle) 1 cap BID PO Last administered on 04/15/19at 21:19; Start 04/09/19 at 21:00 Risperidone (RisperDAL) 0.75 mg QHS PO Last administered on 04/15/19at 21:19; Start 04/12/19 at 21:00 Active Scripts Active Reported Dicyclomine Hcl 20 Mg Tablet 20 Mg PO PRN Q8HRS PRN Ventolin Hfa Inhaler (Albuterol Sulfate) 18 Gm Hfa.aer.ad 2 Puff IH PRN Q6HRS PRN Tylenol (Acetaminophen) 325 Mg Tablet 650 Mg PO PRN Q6HRS PRN Risperdal (Risperidone) 1 Mg Tablet 1 Mg PO QHS Pulmicort (Budesonide) 0.5 Mg/2 Ml Ampul.neb 0.5 Mg IH BID Preservision Areds Softgel (Vit A/Vit C/Vit E/Zinc/Copper) 1 Each Capsule 1 Each PO DAILY Miralax (Polyethylene Glycol 3350) 17 Gm Powd.pack 17 Gm PO PRN DAILY PRN Ondansetron Odt (Ondansetron) 4 Mg Tab.rapdis 4 Mg PO PRN Q6HRS PRN Loperamide (Loperamide Hcl) 2 Mg Tablet 2 Mg PO PRN Q2HR PRN Januvia (Sitagliptin Phosphate) 100 Mg Tablet 100 Mg PO DAILY Isosorbide Mononitrate Er (Isosorbide Mononitrate) 60 Mg Tab.er.24h 60 Mg PO DAILY Novolog Flexpen (Insulin Aspart) 100 Unit/1 Ml Insuln.pen 2-6 Unit SQ TIDBFRMEAL Hydrocodone-Apap 5-325 (Hydrocodone Bit/Acetaminophen) 1 Each Tablet 1 Tab PO PRN Q4HRS PRN Haloperidol 5 Mg Tablet 5 Mg PO PRN Q8HRS PRN Glimepiride 4 Mg Tablet 4 Mg PO BID Ferrous Sulfate 325 Mg Tablet 325 Mg PO DAILY Zetia (Ezetimibe) 10 Mg Tablet 10 Mg PO DAILY Cymbalta (Duloxetine Hcl) 60 Mg Capsule.dr 60 Mg PO QHS Buspirone Hcl 10 Mg Tablet 10 Mg PO TID Bisacodyl 10 Mg Supp.rect 10 Mg RC PRN DAILY PRN Aspirin Ec (Aspirin) 81 Mg Tablet.dr 81 Mg PO DAILY Duoneb 0.5-3(2.5) Mg/3 Ml (Albuterol/Ipratropium) 3 Ml Ampul.neb 3 Ml NEB QID Calcium 500 + Vit D 200 Tablet (Calcium Carbonate/Vitamin D3) 1 Each Tablet 1 Each PO DAILY I have reviewed the current psychotropics carefully including drug interactions. Risk benefit ratio favors no change other than as noted in my dictated progress note. Diagnosis: Problems: (1) Dementia with behavioral disturbance (2) Delusional disorder (3) Dementia, vascular, with depression (4) Dementia, vascular, with delusions (5) Major depression with psychotic features VIRY COTE MD April 15, 2019 22:31
--- NOTE | 2019-04-16 03:25 | NUR ---
Patient in day room sitting at table with peers. Pleasant and calm, spoke to daughter on phone. Social with peers and staff. Compliant with medications taken with water, large pills crushed in chocolate pudding. Drowsy at HS, assisted to bed by staff. Patient on continuous oxygen via NC at 3L. Labs 04/15 WNL. No adverse behaviors, delusions or hallucinations evident at this time.
[2019-04-16] MEDS: BUDESONIDE 0.5 MG/2 ML NEBU NEB SCH ×2 (05:15→20:40)
[2019-04-16] MEDS: IPRATRPIUM/ALBUTEROL 0.5/2.5MG 3 ML NEBU. NEB SCH ×4 (05:15→20:40)
[2019-04-16] MEDS: levoFLOXacin 500 MG TABLET PO SCH (05:24)
[2019-04-16 06:20] VITALS: BP 95/46
[2019-04-16] MEDS: INSULIN LISPRO 300 UNITS/3 ML INSULN.PEN. SQ SCH ×3 (08:00→17:00)
[2019-04-16] MEDS: GLIMEPIRIDE 2 MG TABLET PO SCH ×2 (08:16→17:54)
[2019-04-16] MEDS: ASPIRIN ENTERIC COATED 81 MG TABLET.DR. PO SCH (08:20)
[2019-04-16] MEDS: LACTOBACILLUS RHAMNOSUS GG 1 CAPSULE. PO SCH ×2 (08:21→20:11)
[2019-04-16] MEDS: FERROUS SULFATE 325 MG TABLET. PO SCH (08:21)
[2019-04-16] MEDS: busPIRone 10 MG TABLET. PO SCH ×3 (08:21→20:11)
[2019-04-16] MEDS: MULTIVITAMIN I-VITE TABLET. PO SCH (08:22)
[2019-04-16] MEDS: EZETIMIBE 10 MG TABLET PO SCH (08:22)
[2019-04-16] MEDS: CALCIUM CARB/VIT D3 500/200 TABLET PO SCH (08:25)
[2019-04-16] MEDS: ISOSORBIDE MONONITRATE ER 30 MG TAB.ER.24H PO SCH (08:27)
[2019-04-16] MEDS: LINAGLIPTIN 5 MG TABLET PO SCH (08:28)
--- NOTE | 2019-04-16 12:25 | PN ---
DATE: 04/15/2019 PSYCHIATRIC PROGRESS NOTE This note covers elements not covered in my initial note 04/15/2019. SUBJECTIVE: I met with the patient in the evening. The patient slept 5-3/4 hours previous night. She did well at night, done reasonably during the day. Labs unremarkable, talked to her daughter on the telephone. She gets confused, believes the unit telephone is her private telephone. REVIEW OF SYSTEMS: Shortness of breath, on O2 supplements, impaired ambulation. No CV, GI, , ENT system symptoms on review. MENTAL STATUS EXAM: Oriented to herself and situation. Speech is coherent, abstraction fair, computation impaired, language function intact, attention span short. Mood and affect somewhat anxious, labile. LABORATORY DATA: Reviewed. IMPRESSION: Unchanged from initial note. PLAN: No change from initial note. MAN Treasure COTE MD DR: OSCAR/bhavin JOB#: [id number] / [id number]
[2019-04-16 16:17] VITALS: BP 123/77
--- NOTE | 2019-04-16 17:42 | NUR ---
Patient has had a good day with no new behaviors. She was cooperative with all therapy and participated in group. Took all medications without complaint. Will continue to monitor.
[2019-04-16] MEDS: DULoxetine HCL 60 MG CAPSULE.DR PO SCH (20:10)
[2019-04-16] MEDS: risperiDONE 0.5 MG TABLET. PO SCH (20:10)
--- NOTE | 2019-04-16 22:30 | NUR ---
Patient pleasant, calm and cooperative tonight. After shower, she went to bed. Compliant with medications, small pills taken whole with water, larger capsules opened and mixed into chocolate pudding. Patient denied pain in her arm at this time, states she is "just very tired tonight". Oxygen 3L via NC and side rails up for safety. Will continue to monitor.
--- NOTE | 2019-04-16 22:36 | PDOC ---
Exam Note: Benito Note: Please also refer to the separate dictated note~for this date of service dictated separately.~Patient seen individually. Discussed the patient with Nursing staff reviewed the chart.~Reviewed interim history and current functioning. Reviewed vital signs,~Labs/ Radiology~and current medications noted below. Continue current treatment with the changes noted in the dictated addendum note Assessment: Vital Signs: Vital Signs Date Time Temp Pulse Resp B/P (MAP) Pulse Ox O2 Delivery O2 Flow Rate FiO2 04/16/19 20:42 98 Nasal Cannula 2.0 04/16/19 16:17 97.1 93 20 123/77 (92) I&O Intake and Output 04/16/19 06:59 Intake Total 1080 ml Balance 1080 ml Intake Oral 1080 ml Labs: Laboratory Tests Test 04/16/19 07:26 04/16/19 11:31 04/16/19 17:17 04/16/19 19:15 Glucose (Fingerstick) 119 mg/dL (70-99) H 145 mg/dL (70-99) H 111 mg/dL (70-99) H 192 mg/dL (70-99) H Current Medications: Meds: Current Medications Acetaminophen (Tylenol) 650 mg PRN Q6HRS PRN PO PAIN / TEMP Last administered on 04/15/19at 06:39; Start 04/05/19 at 16:00 Multi-Ingredient Ointment (Analgesic [place]) 1 odalys PRN QID PRN TP MUSCLE PAIN; Start 04/05/19 at 16:00 Al Hydroxide/Mg Hydroxide (Mylanta Plus Xs) 15 ml PRN AFTMEALHC PRN PO DYSPEPSIA; Start 04/05/19 at 16:00 Magnesium Hydroxide (Milk Of Magnesia) 2,400 mg PRN QHS PRN PO CONSTIPATION; Start 04/05/19 at 16:00 Acetaminophen (Tylenol) 650 mg PRN Q6HRS PRN PO PAIN / TEMP; Start 04/05/19 at 17:30; Status UNV Albuterol Sulfate (Ventolin) 2.5 mg PRN Q6HRS PRN IH SHORTNESS OF BREATH; Star t 04/05/19 at 17:30 Calcium/Vitamin D (Oscal D 500mg/ 200uts) 1 tab DAILY PO Last administered on 04/16/19at 08:25; Start 04/06/19 at 09:00 Dicyclomine HCl (Bentyl) 20 mg PRN Q8HRS PRN PO IRRITABLE BOWEL; Start 04/05/19 at 18:00 Ferrous Sulfate (Feosol) 325 mg DAILY PO Last administered on 04/16/19 08:21; Start 04/06/19 at 09:00 Acetaminophen/ Hydrocodone Bitart (Lortab 5/325) 1 tab PRN Q4HRS PRN PO PAIN; Start 04/05/19 at 17:30 Albuterol/ Ipratropium (Duoneb) 3 ml RTQID NEB Last administered on 04/16/19 20:40; Start 04/05/19 at 20:00 Aspirin (Aspirin Enteric Coated) 81 mg DAILY PO Last administered on 04/16/19 08:20; Start 04/06/19 at 09:00 Bisacodyl (Dulcolax Supp) 10 mg PRN DAILY PRN [place] CONSTIPATION; Start 04/05/19 at 18:00 Non-Formulary Medication (Budesonide (Pulmicort)) 0.5 mg BID IH ; Start 04/05/19 at 21:00; Status UNV Buspirone HCl (Buspar) 10 mg TID PO Last administered on 04/16/19 20:11; Start 04/05/19 at 21:00 Duloxetine HCl (Cymbalta) 60 mg QHS PO Last administered on 04/16/19 20:10; Start 04/05/19 at 21:00 EZETIMIBE (Zetia) 10 mg DAILY PO Last administered on 04/16/19 08:22; Start 04/06/19 at 09:00 Glimepiride (Amaryl) 4 mg BIDWMEALS PO Last administered on 04/16/19 17:54; Start 04/05/19 at 21:00 Haloperidol (Haldol) 5 mg PRN Q8HRS PRN PO PSYCHOSIS Last administered on 04/09/19 01:37; Start 04/05/19 at 18:00 Non-Formulary Medication (Insulin Aspart (Novolog Flexpen)) FSBS 150-2,00; giv... TIDBFRMEAL SQ ; Start 04/06/19 at 07:30; Status UNV Isosorbide Mononitrate (Imdur) 60 mg DAILY PO Last administered on 04/15/19 09:32; Start 04/06/19 at 09:00 Loperamide HCl (Imodium) 2 mg PRN Q2HR PRN PO DIARRHEA; Start 04/05/19 at 18:15 Ondansetron HCl (Zofran Odt) 4 mg PRN Q6HRS PRN PO NAUSEA/VOMITING; Start 04/05/19 at 18:15 Polyethylene Glycol (miraLAX) 17 gm PRN DAILY PRN PO CONSTIPATION; Start 04/05/19 at 18:15 Risperidone (RisperDAL) 1 mg QHS PO Last administered on 04/11/19 19:51; Start 04/05/19 at 21:00; Stop 04/12/19 at 12:18; Status DC Linagliptin (Tradjenta) 5 mg DAILY PO Last administered on 04/16/19 08:28; Start 04/06/19 at 09:00 Multivitamins/ Minerals (I-[place]) 1 tab DAILY PO Last administered on 04/16/19 08:22; Start 04/06/19 at 09:00 Budesonide (Pulmicort) 0.5 mg RTBID NEB Last administered on 04/16/19 20:40; Start 04/05/19 at 20:00 Insulin Human Lispro (HumaLOG) 0-5 UNITS TIDWMEALS SQ Last administered on 04/14/19 17:08; Start 04/06/19 at 08:00 Levofloxacin (Levaquin) 500 mg DAILY07 PO Last administered on 04/16/19 05:24; Start 04/09/19 at 22:00; Stop 04/16/19 at 22:00; Status DC Lactobacillus Rhamnosus (Culturelle) 1 cap BID PO Last administered on 04/16/19 20:11; Start 04/09/19 at 21:00 Risperidone (RisperDAL) 0.75 mg QHS PO Last administered on 04/16/19 20:10; Start 04/12/19 at 21:00 Active Scripts Active Reported Dicyclomine Hcl 20 Mg Tablet 20 Mg PO PRN Q8HRS PRN Ventolin Hfa Inhaler (Albuterol Sulfate) 18 Gm Hfa.aer.ad 2 Puff IH PRN Q6HRS PRN Tylenol (Acetaminophen) 325 Mg Tablet 650 Mg PO PRN Q6HRS PRN Risperdal (Risperidone) 1 Mg Tablet 1 Mg PO QHS Pulmicort (Budesonide) 0.5 Mg/2 Ml Ampul.neb 0.5 Mg IH BID Preservision Areds Softgel (Vit A/Vit C/Vit E/Zinc/Copper) 1 Each Capsule 1 Each PO DAILY Miralax (Polyethylene Glycol 3350) 17 Gm Powd.pack 17 Gm PO PRN DAILY PRN Ondansetron Odt (Ondansetron) 4 Mg Tab.rapdis 4 Mg PO PRN Q6HRS PRN Loperamide (Loperamide Hcl) 2 Mg Tablet 2 Mg PO PRN Q2HR PRN Januvia (Sitagliptin Phosphate) 100 Mg Tablet 100 Mg PO DAILY Isosorbide Mononitrate Er (Isosorbide Mononitrate) 60 Mg Tab.er.24h 60 Mg PO DAILY Novolog Flexpen (Insulin Aspart) 100 Unit/1 Ml Insuln.pen 2-6 Unit SQ TIDBFRMEAL Hydrocodone-Apap 5-325 (Hydrocodone Bit/Acetaminophen) 1 Each Tablet 1 Tab PO PRN Q4HRS PRN Haloperidol 5 Mg Tablet 5 Mg PO PRN Q8HRS PRN Glimepiride 4 Mg Tablet 4 Mg PO BID Ferrous Sulfate 325 Mg Tablet 325 Mg PO DAILY Zetia (Ezetimibe) 10 Mg Tablet 10 Mg PO DAILY Cymbalta (Duloxetine Hcl) 60 Mg Capsule.dr 60 Mg PO QHS Buspirone Hcl 10 Mg Tablet 10 Mg PO TID Bisacodyl 10 Mg Supp.rect 10 Mg RC PRN DAILY PRN Aspirin Ec (Aspirin) 81 Mg Tablet.dr 81 Mg PO DAILY Duoneb 0.5-3(2.5) Mg/3 Ml (Albuterol/Ipratropium) 3 Ml Ampul.neb 3 Ml NEB QID Calcium 500 + Vit D 200 Tablet (Calcium Carbonate/Vitamin D3) 1 Each Tablet 1 Each PO DAILY I have reviewed the current psychotropics carefully including drug interactions. Risk benefit ratio favors no change other than as noted in my dictated progress note. Diagnosis: Problems: (1) Dementia with behavioral disturbance (2) Delusional disorder (3) Dementia, vascular, with depression (4) Dementia, vascular, with delusions (5) Major depression with psychotic features VIRY COTE MD April 16, 2019 22:36
--- NOTE | 2019-04-16 23:43 | PN ---
DATE: 04/16/2019 PSYCHIATRIC PROGRESS NOTE This note covers elements not covered in my initial note 04/16/2019. SUBJECTIVE: I met with the patient in the evening. The patient slept 6-1/2 hours previous night. She has been social, appropriate. REVIEW OF SYSTEMS: Ambulation impaired, in wheelchair, shortness of breath on O2 supplements. No CV, , GI, eye system symptoms on review. MENTAL STATUS EXAM: Oriented to herself and situation. Speech is coherent, has some latency. Abstraction fair, computation impaired, language function intact. Short term memory is impaired. Mood and affect is improved. LABORATORY DATA: Reviewed. IMPRESSION: Unchanged from initial note. PLAN: No change from initial note. MAN Treasure COTE MD DR: OSCAR/bhavin JOB#: [id number] / [id number]
--- NOTE | 2019-04-17 00:04 | PN ---
DATE: 04/13/2019 PSYCHIATRIC PROGRESS NOTE This late entry 04/13/2019 covers elements not covered in my initial note. SUBJECTIVE: I met with the patient in the evening. The patient generally had a good day, slept 5-1/4 hours. REVIEW OF SYSTEMS: Ambulation impaired with walker, on O2 supplements. No CV, , GI, eye, system symptoms on review. MENTAL STATUS EXAM: Oriented to herself and situation. Speech is coherent, abstraction fair, computation impaired, language function intact, attention span short. Mood and affect has improved. LABORATORY DATA: Reviewed. IMPRESSION: Unchanged from initial note. PLAN: No change from initial note. MAN Treasure COTE MD DR: OSCAR/bhavin JOB#: [id number] / [id number]
--- NOTE | 2019-04-17 01:03 | PN ---
DATE: 04/14/2019 PSYCHIATRIC PROGRESS NOTE This late entry 04/14/2019 covers elements not covered in my initial note. SUBJECTIVE: I met with the patient in the evening of 04/14/2019. The patient slept 6-3/4 hours previous evening. She has had no PRNs, somewhat withdrawn. REVIEW OF SYSTEMS: No CV, , GI, eye system symptoms on review. Shortness of breath, on O2 supplements. Ambulation impaired with walker/wheelchair. MENTAL STATUS EXAM: Oriented to herself and situation. Speech coherent, abstraction fair, computation impaired, language function intact, attention span short. Mood and affect less anxious and labile. LABORATORY DATA: Reviewed. IMPRESSION: Unchanged from initial note. PLAN: No change from initial note. VIRY COTE MD DR: OSCAR/bhavin JOB#: [id number] / [id number]
[2019-04-17 06:03] VITALS: BP 102/43
[2019-04-17] MEDS: BUDESONIDE 0.5 MG/2 ML NEBU NEB SCH ×2 (06:11→10:00)
[2019-04-17] MEDS: IPRATRPIUM/ALBUTEROL 0.5/2.5MG 3 ML NEBU. NEB SCH ×4 (06:11→20:27)
[2019-04-17] MEDS: ASPIRIN ENTERIC COATED 81 MG TABLET.DR. PO SCH (08:22)
[2019-04-17] MEDS: LACTOBACILLUS RHAMNOSUS GG 1 CAPSULE. PO SCH ×2 (08:22→20:10)
[2019-04-17] MEDS: busPIRone 10 MG TABLET. PO SCH ×3 (08:22→20:10)
[2019-04-17] MEDS: INSULIN LISPRO 300 UNITS/3 ML INSULN.PEN. SQ SCH ×3 (08:22→17:35)
[2019-04-17] MEDS: GLIMEPIRIDE 2 MG TABLET PO SCH ×2 (08:22→17:11)
[2019-04-17] MEDS: CALCIUM CARB/VIT D3 500/200 TABLET PO SCH (08:23)
[2019-04-17] MEDS: EZETIMIBE 10 MG TABLET PO SCH (08:23)
[2019-04-17] MEDS: LINAGLIPTIN 5 MG TABLET PO SCH (08:23)
[2019-04-17] MEDS: FERROUS SULFATE 325 MG TABLET. PO SCH (08:23)
[2019-04-17] MEDS: MULTIVITAMIN I-VITE TABLET. PO SCH (08:23)
[2019-04-17 09:38] VITALS: BP 110/73
[2019-04-17] MEDS: ISOSORBIDE MONONITRATE ER 30 MG TAB.ER.24H PO SCH (09:42)
--- NOTE | 2019-04-17 11:56 | NUR ---
Pt is calm, cooperative, compliant and social. No agitation or aggression. No SI/HI. Pt participates in group and is social with staff and peers. She is compliant with her medication and assessment.
[2019-04-17 16:35] VITALS: BP 106/72
--- NOTE | 2019-04-17 16:59 | NUR ---
Spoke with RT today who stated pt is safe with oxygen on 2L via NC.
[2019-04-17] MEDS: DULoxetine HCL 60 MG CAPSULE.DR PO SCH (20:10)
[2019-04-17] MEDS: risperiDONE 0.5 MG TABLET. PO SCH (20:10)
[2019-04-17] MEDS: ACETAMINOPHEN 325 MG TABLET PO PRN (20:37)
--- NOTE | 2019-04-17 22:41 | PDOC ---
Exam Note: Benito Note: Please also refer to the separate dictated note~for this date of service dictated separately.~Patient seen individually. Discussed the patient with Nursing staff reviewed the chart.~Reviewed interim history and current functioning. Reviewed vital signs,~Labs/ Radiology~and current medications noted below. Continue current treatment with the changes noted in the dictated addendum note Assessment: Vital Signs: Vital Signs Date Time Temp Pulse Resp B/P (MAP) Pulse Ox O2 Delivery O2 Flow Rate FiO2 04/17/19 21:12 100 Nasal Cannula 2.0 04/17/19 16:35 97.6 98 20 106/72 (83) I&O Intake and Output 04/17/19 06:59 Intake Total 1020 ml Balance 1020 ml Intake Oral 1020 ml # Voids 1 Labs: Laboratory Tests Test 04/17/19 07:42 04/17/19 11:46 04/17/19 17:01 04/17/19 19:55 Glucose (Fingerstick) 94 mg/dL (70-99) 180 mg/dL (70-99) H 163 mg/dL (70-99) H 146 mg/dL (70-99) H Current Medications: Meds: Current Medications Acetaminophen (Tylenol) 650 mg PRN Q6HRS PRN PO PAIN / TEMP Last administered on 04/17/19at 20:37; Start 04/05/19 at 16:00 Multi-Ingredient Ointment (Analgesic [place]) 1 odalys PRN QID PRN TP MUSCLE PAIN; Start 04/05/19 at 16:00 Al Hydroxide/Mg Hydroxide (Mylanta Plus Xs) 15 ml PRN AFTMEALHC PRN PO DYSPEPSIA; Start 04/05/19 at 16:00 Magnesium Hydroxide (Milk Of Magnesia) 2,400 mg PRN QHS PRN PO CONSTIPATION; Start 04/05/19 at 16:00 Acetaminophen (Tylenol) 650 mg PRN Q6HRS PRN PO PAIN / TEMP; Start 04/05/19 at 17:30; Status UNV Albuterol Sulfate (Ventolin) 2.5 mg PRN Q6HRS PRN IH SHORTNESS OF BREATH; Start 04/05/19 at 17:30 Calcium/Vitamin D (Oscal D 500mg/ 200uts) 1 tab DAILY PO Last administered on 04/17/19at 08:23; Start 04/06/19 at 09:00 Dicyclomine HCl (Bentyl) 20 mg PRN Q8HRS PRN PO IRRITABLE BOWEL; Start 04/05/19 at 18:00 Ferrous Sulfate (Feosol) 325 mg DAILY PO Last administered on 04/17/19 08:23; Start 04/06/19 at 09:00 Acetaminophen/ Hydrocodone Bitart (Lortab 5/325) 1 tab PRN Q4HRS PRN PO PAIN; Start 04/05/19 at 17:30 Albuterol/ Ipratropium (Duoneb) 3 ml RTQID NEB Last administered on 04/17/19 20:27; Start 04/05/19 at 20:00 Aspirin (Aspirin Enteric Coated) 81 mg DAILY PO Last administered on 04/17/19 08:22; Start 04/06/19 at 09:00 Bisacodyl (Dulcolax Supp) 10 mg PRN DAILY PRN [place] CONSTIPATION; Start 04/05/19 at 18:00 Non-Formulary Medication (Budesonide (Pulmicort)) 0.5 mg BID IH ; Start 04/05/19 at 21:00; Status UNV Buspirone HCl (Buspar) 10 mg TID PO Last administered on 04/17/19 20:10; Start 04/05/19 at 21:00 Duloxetine HCl (Cymbalta) 60 mg QHS PO Last administered on 04/17/19 20:10; Start 04/05/19 at 21:00 EZETIMIBE (Zetia) 10 mg DAILY PO Last administered on 04/17/19 08:23; Start 04/06/19 at 09:00 Glimepiride (Amaryl) 4 mg BIDWMEALS PO Last administered on 04/17/19 17:11; Start 04/05/19 at 21:00 Haloperidol (Haldol) 5 mg PRN Q8HRS PRN PO PSYCHOSIS Last administered on 04/09/19 01:37; Start 04/05/19 at 18:00 Non-Formulary Medication (Insulin Aspart (Novolog Flexpen)) FSBS 150-2,00; giv... TIDBFRMEAL SQ ; Start 04/06/19 at 07:30; Status UNV Isosorbide Mononitrate (Imdur) 60 mg DAILY PO Last administered on 04/17/19 09:42; Start 04/06/19 at 09:00; Stop 04/17/19 at 17:28; Status DC Loperamide HCl (Imodium) 2 mg PRN Q2HR PRN PO DIARRHEA; Start 04/05/19 at 18:15 Ondansetron HCl (Zofran Odt) 4 mg PRN Q6HRS PRN PO NAUSEA/VOMITING; Start 04/05/19 at 18:15 Polyethylene Glycol (miraLAX) 17 gm PRN DAILY PRN PO CONSTIPATION; Start 04/05/19 at 18:15 Risperidone (RisperDAL) 1 mg QHS PO Last administered on 04/11/19 19:51; Start 04/05/19 at 21:00; Stop 04/12/19 at 12:18; Status DC Linagliptin (Tradjenta) 5 mg DAILY PO Last administered on 04/17/19 08:23; Start 04/06/19 at 09:00 Multivitamins/ Minerals (I-[place]) 1 tab DAILY PO Last administered on 04/17/19 08:23; Start 04/06/19 at 09:00 Budesonide (Pulmicort) 0.5 mg RTBID NEB Last administered on 04/17/19 10:00; Start 04/05/19 at 20:00 Insulin Human Lispro (HumaLOG) 0-5 UNITS TIDWMEALS SQ Last administered on 04/17/19 12:13; Start 04/06/19 at 08:00 Levofloxacin (Levaquin) 500 mg DAILY07 PO Last administered on 04/16/19 05:24; Start 04/09/19 at 22:00; Stop 04/16/19 at 22:00; Status DC Lactobacillus Rhamnosus (Culturelle) 1 cap BID PO Last administered on 04/17/19 20:10; Start 04/09/19 at 21:00 Risperidone (RisperDAL) 0.75 mg QHS PO Last administered on 04/17/19 20:10; Start 04/12/19 at 21:00 Isosorbide Mononitrate (Imdur) 30 mg DAILY PO ; Start 04/18/19 at 09:00 Active Scripts Active Reported Dicyclomine Hcl 20 Mg Tablet 20 Mg PO PRN Q8HRS PRN Ventolin Hfa Inhaler (Albuterol Sulfate) 18 Gm Hfa.aer.ad 2 Puff IH PRN Q6HRS PRN Tylenol (Acetaminophen) 325 Mg Tablet 650 Mg PO PRN Q6HRS PRN Risperdal (Risperidone) 1 Mg Tablet 1 Mg PO QHS Pulmicort (Budesonide) 0.5 Mg/2 Ml Ampul.neb 0.5 Mg IH BID Preservision Areds Softgel (Vit A/Vit C/Vit E/Zinc/Copper) 1 Each Capsule 1 Each PO DAILY Miralax (Polyethylene Glycol 3350) 17 Gm Powd.pack 17 Gm PO PRN DAILY PRN Ondansetron Odt (Ondansetron) 4 Mg Tab.rapdis 4 Mg PO PRN Q6HRS PRN Loperamide (Loperamide Hcl) 2 Mg Tablet 2 Mg PO PRN Q2HR PRN Januvia (Sitagliptin Phosphate) 100 Mg Tablet 100 Mg PO DAILY Isosorbide Mononitrate Er (Isosorbide Mononitrate) 60 Mg Tab.er.24h 60 Mg PO DAILY Novolog Flexpen (Insulin Aspart) 100 Unit/1 Ml Insuln.pen 2-6 Unit SQ TIDBFRMEAL Hydrocodone-Apap 5-325 (Hydrocodone Bit/Acetaminophen) 1 Each Tablet 1 Tab PO PRN Q4HRS PRN Haloperidol 5 Mg Tablet 5 Mg PO PRN Q8HRS PRN Glimepiride 4 Mg Tablet 4 Mg PO BID Ferrous Sulfate 325 Mg Tablet 325 Mg PO DAILY Zetia (Ezetimibe) 10 Mg Tablet 10 Mg PO DAILY Cymbalta (Duloxetine Hcl) 60 Mg Capsule.dr 60 Mg PO QHS Buspirone Hcl 10 Mg Tablet 10 Mg PO TID Bisacodyl 10 Mg Supp.rect 10 Mg RC PRN DAILY PRN Aspirin Ec (Aspirin) 81 Mg Tablet.dr 81 Mg PO DAILY Duoneb 0.5-3(2.5) Mg/3 Ml (Albuterol/Ipratropium) 3 Ml Ampul.neb 3 Ml NEB QID Calcium 500 + Vit D 200 Tablet (Calcium Carbonate/Vitamin D3) 1 Each Tablet 1 Each PO DAILY I have reviewed the current psychotropics carefully including drug interactions. Risk benefit ratio favors no change other than as noted in my dictated progress note. Diagnosis: Problems: (1) Dementia with behavioral disturbance (2) Delusional disorder (3) Dementia, vascular, with depression (4) Dementia, vascular, with delusions (5) Major depression with psychotic features VIRY COTE MD April 17, 2019 22:41
--- NOTE | 2019-04-17 23:11 | PN ---
DATE: 04/17/2019 PSYCHIATRIC PROGRESS NOTE This note covers elements not covered in my initial note 04/17/2019. SUBJECTIVE: I met with the patient in her room. The patient slept 7-1/2 hours previous night. She has done very well per nursing report. REVIEW OF SYSTEMS: Ambulation impaired with walker, shortness of breath on O2 supplements. No CV, GI, , eye system symptoms on review. Reliability poor. MENTAL STATUS EXAM: Oriented to herself and situation. Speech is coherent, abstraction fair, computation impaired, language function intact, attention span short. Mood and affect showing improvement. LABORATORY DATA: Reviewed. IMPRESSION: Unchanged from initial note. PLAN: Continue current psychotropics. She remains on 3 liters oxygen by nasal cannula. VIRY COTE MD DR: OSCAR/bhavin JOB#: [id number] / [id number]
--- NOTE | 2019-04-17 23:24 | NUR ---
She was in the hallway this evening due to weather, when this commercial underwriter came on shift. Later on pt. went to the day room to watch TV. She has been calm, pleasant, and interacting appropriately with the staff. She has been compliant with taking her HS medications this evening. She C/O of some right arm pain, gave PRN Tylenol. See MAR for the time. 2200 patient is in bed and appeared to be asleep with eyes shut. No sign of distress noted.
[2019-04-18] MEDS: IPRATRPIUM/ALBUTEROL 0.5/2.5MG 3 ML NEBU. NEB SCH ×4 (06:04→20:00)
[2019-04-18 06:10] VITALS: BP 99/64
[2019-04-18] MEDS: INSULIN LISPRO 300 UNITS/3 ML INSULN.PEN. SQ SCH ×3 (08:22→17:16)
[2019-04-18] MEDS: LACTOBACILLUS RHAMNOSUS GG 1 CAPSULE. PO SCH ×2 (09:44→19:55)
[2019-04-18] MEDS: FERROUS SULFATE 325 MG TABLET. PO SCH (09:44)
[2019-04-18] MEDS: ASPIRIN ENTERIC COATED 81 MG TABLET.DR. PO SCH (09:44)
[2019-04-18] MEDS: CALCIUM CARB/VIT D3 500/200 TABLET PO SCH (09:44)
[2019-04-18] MEDS: busPIRone 10 MG TABLET. PO SCH ×3 (09:45→19:55)
[2019-04-18] MEDS: EZETIMIBE 10 MG TABLET PO SCH (09:45)
[2019-04-18] MEDS: MULTIVITAMIN I-VITE TABLET. PO SCH (09:45)
[2019-04-18] MEDS: LINAGLIPTIN 5 MG TABLET PO SCH (09:45)
[2019-04-18] MEDS: GLIMEPIRIDE 2 MG TABLET PO SCH ×2 (09:45→17:13)
[2019-04-18] MEDS: ISOSORBIDE MONONITRATE ER 30 MG TAB.ER.24H PO SCH (09:47)
[2019-04-18] MEDS: BUDESONIDE 0.5 MG/2 ML NEBU NEB SCH (10:12)
--- NOTE | 2019-04-18 16:32 | NUR ---
Patient compliant with medications and cooperative with assessment. She is able to ask for assistance when needed for transfers. She remains on 2L oxygen and Sats in the 90's. She is calm, pleasant and interactive with staff and peers. No adverse behaviors noted this shift.
[2019-04-18 16:44] VITALS: BP 117/75
[2019-04-18] MEDS: DULoxetine HCL 60 MG CAPSULE.DR PO SCH (19:55)
[2019-04-18] MEDS: risperiDONE 0.5 MG TABLET. PO SCH (19:55)
[2019-04-18] MEDS: ACETAMINOPHEN 325 MG TABLET PO PRN (19:59)
--- NOTE | 2019-04-18 22:30 | PDOC ---
Exam Note: Benito Note: Please also refer to the separate dictated note~for this date of service dictated separately.~Patient seen individually. Discussed the patient with Nursing staff reviewed the chart.~Reviewed interim history and current functioning. Reviewed vital signs,~Labs/ Radiology~and current medications noted below. Continue current treatment with the changes noted in the dictated addendum note Assessment: Vital Signs: Vital Signs Date Time Temp Pulse Resp B/P (MAP) Pulse Ox O2 Delivery O2 Flow Rate FiO2 04/18/19 16:44 98.4 96 20 117/75 (89) 93 04/18/19 16:06 Nasal Cannula 2.0 I&O Intake and Output 04/18/19 07:00 Intake Total 1200 ml Balance 1200 ml Intake Oral 1200 ml Labs: Laboratory Tests Test 04/18/19 07:26 04/18/19 11:57 04/18/19 16:51 04/18/19 19:25 Glucose (Fingerstick) 107 mg/dL (70-99) H 160 mg/dL (70-99) H 158 mg/dL (70-99) H 154 mg/dL (70-99) H Current Medications: Meds: Current Medications Acetaminophen (Tylenol) 650 mg PRN Q6HRS PRN PO PAIN / TEMP Last administered on 04/18/19at 19:59; Start 04/05/19 at 16:00 Multi-Ingredient Ointment (Analgesic [place]) 1 odalys PRN QID PRN TP MUSCLE PAIN; Start 04/05/19 at 16:00 Al Hydroxide/Mg Hydroxide (Mylanta Plus Xs) 15 ml PRN AFTMEALHC PRN PO DYSPEPSIA; Start 04/05/19 at 16:00 Magnesium Hydroxide (Milk Of Magnesia) 2,400 mg PRN QHS PRN PO CONSTIPATION; Start 04/05/19 at 16:00 Acetaminophen (Tylenol) 650 mg PRN Q6HRS PRN PO PAIN / TEMP; Start 04/05/19 at 17:30; Status UNV Albuterol Sulfate (Ventolin) 2.5 mg PRN Q6HRS PRN IH SHORTNESS OF BREATH; Star t 04/05/19 at 17:30 Calcium/Vitamin D (Oscal D 500mg/ 200uts) 1 tab DAILY PO Last administered on 04/18/19at 09:44; Start 04/06/19 at 09:00 Dicyclomine HCl (Bentyl) 20 mg PRN Q8HRS PRN PO IRRITABLE BOWEL; Start 04/05/19 at 18:00 Ferrous Sulfate (Feosol) 325 mg DAILY PO Last administered on 04/18/19 09:44; Start 04/06/19 at 09:00 Acetaminophen/ Hydrocodone Bitart (Lortab 5/325) 1 tab PRN Q4HRS PRN PO PAIN; Start 04/05/19 at 17:30 Albuterol/ Ipratropium (Duoneb) 3 ml RTQID NEB Last administered on 04/18/19 16:04; Start 04/05/19 at 20:00 Aspirin (Aspirin Enteric Coated) 81 mg DAILY PO Last administered on 04/18/19 09:44; Start 04/06/19 at 09:00 Bisacodyl (Dulcolax Supp) 10 mg PRN DAILY PRN [place] CONSTIPATION; Start 04/05/19 at 18:00 Non-Formulary Medication (Budesonide (Pulmicort)) 0.5 mg BID IH ; Start 04/05/19 at 21:00; Status UNV Buspirone HCl (Buspar) 10 mg TID PO Last administered on 04/18/19 19:55; Start 04/05/19 at 21:00 Duloxetine HCl (Cymbalta) 60 mg QHS PO Last administered on 04/18/19 19:55; Start 04/05/19 at 21:00 EZETIMIBE (Zetia) 10 mg DAILY PO Last administered on 04/18/19 09:45; Start 04/06/19 at 09:00 Glimepiride (Amaryl) 4 mg BIDWMEALS PO Last administered on 04/18/19 17:13; Start 04/05/19 at 21:00 Haloperidol (Haldol) 5 mg PRN Q8HRS PRN PO PSYCHOSIS Last administered on 04/09/19 01:37; Start 04/05/19 at 18:00 Non-Formulary Medication (Insulin Aspart (Novolog Flexpen)) FSBS 150-2,00; giv... TIDBFRMEAL SQ ; Start 04/06/19 at 07:30; Status UNV Isosorbide Mononitrate (Imdur) 60 mg DAILY PO Last administered on 04/17/19 09:42; Start 04/06/19 at 09:00; Stop 04/17/19 at 17:28; Status DC Loperamide HCl (Imodium) 2 mg PRN Q2HR PRN PO DIARRHEA; Start 04/05/19 at 18:15 Ondansetron HCl (Zofran Odt) 4 mg PRN Q6HRS PRN PO NAUSEA/VOMITING; Start 04/05/19 at 18:15 Polyethylene Glycol (miraLAX) 17 gm PRN DAILY PRN PO CONSTIPATION; Start 04/05/19 at 18:15 Risperidone (RisperDAL) 1 mg QHS PO Last administered on 04/11/19 19:51; Start 04/05/19 at 21:00; Stop 04/12/19 at 12:18; Status DC Linagliptin (Tradjenta) 5 mg DAILY PO Last administered on 04/18/19 09:45; Start 04/06/19 at 09:00 Multivitamins/ Minerals (I-[place]) 1 tab DAILY PO Last administered on 04/18/19 09:45; Start 04/06/19 at 09:00 Budesonide (Pulmicort) 0.5 mg RTBID NEB Last administered on 04/18/19 10:12; Start 04/05/19 at 20:00 Insulin Human Lispro (HumaLOG) 0-5 UNITS TIDWMEALS SQ Last administered on 04/18/19 17:16; Start 04/06/19 at 08:00 Levofloxacin (Levaquin) 500 mg DAILY07 PO Last administered on 04/16/19 05:24; Start 04/09/19 at 22:00; Stop 04/16/19 at 22:00; Status DC Lactobacillus Rhamnosus (Culturelle) 1 cap BID PO Last administered on 04/18/19 19:55; Start 04/09/19 at 21:00 Risperidone (RisperDAL) 0.75 mg QHS PO Last administered on 04/18/19 19:55; Start 04/12/19 at 21:00 Isosorbide Mononitrate (Imdur) 30 mg DAILY PO Last administered on 04/18/19 09:47; Start 04/18/19 at 09:00 Active Scripts Active Reported Dicyclomine Hcl 20 Mg Tablet 20 Mg PO PRN Q8HRS PRN Ventolin Hfa Inhaler (Albuterol Sulfate) 18 Gm Hfa.aer.ad 2 Puff IH PRN Q6HRS PRN Tylenol (Acetaminophen) 325 Mg Tablet 650 Mg PO PRN Q6HRS PRN Risperdal (Risperidone) 1 Mg Tablet 1 Mg PO QHS Pulmicort (Budesonide) 0.5 Mg/2 Ml Ampul.neb 0.5 Mg IH BID Preservision Areds Softgel (Vit A/Vit C/Vit E/Zinc/Copper) 1 Each Capsule 1 Each PO DAILY Miralax (Polyethylene Glycol 3350) 17 Gm Powd.pack 17 Gm PO PRN DAILY PRN Ondansetron Odt (Ondansetron) 4 Mg Tab.rapdis 4 Mg PO PRN Q6HRS PRN Loperamide (Loperamide Hcl) 2 Mg Tablet 2 Mg PO PRN Q2HR PRN Januvia (Sitagliptin Phosphate) 100 Mg Tablet 100 Mg PO DAILY Isosorbide Mononitrate Er (Isosorbide Mononitrate) 60 Mg Tab.er.24h 60 Mg PO DAILY Novolog Flexpen (Insulin Aspart) 100 Unit/1 Ml Insuln.pen 2-6 Unit SQ TIDBFRMEAL Hydrocodone-Apap 5-325 (Hydrocodone Bit/Acetaminophen) 1 Each Tablet 1 Tab PO PRN Q4HRS PRN Haloperidol 5 Mg Tablet 5 Mg PO PRN Q8HRS PRN Glimepiride 4 Mg Tablet 4 Mg PO BID Ferrous Sulfate 325 Mg Tablet 325 Mg PO DAILY Zetia (Ezetimibe) 10 Mg Tablet 10 Mg PO DAILY Cymbalta (Duloxetine Hcl) 60 Mg Capsule.dr 60 Mg PO QHS Buspirone Hcl 10 Mg Tablet 10 Mg PO TID Bisacodyl 10 Mg Supp.rect 10 Mg RC PRN DAILY PRN Aspirin Ec (Aspirin) 81 Mg Tablet.dr 81 Mg PO DAILY Duoneb 0.5-3(2.5) Mg/3 Ml (Albuterol/Ipratropium) 3 Ml Ampul.neb 3 Ml NEB QID Calcium 500 + Vit D 200 Tablet (Calcium Carbonate/Vitamin D3) 1 Each Tablet 1 Each PO DAILY I have reviewed the current psychotropics carefully including drug interactions. Risk benefit ratio favors no change other than as noted in my dictated progress note. Diagnosis: Problems: (1) Dementia with behavioral disturbance (2) Delusional disorder (3) Dementia, vascular, with depression (4) Dementia, vascular, with delusions (5) Major depression with psychotic features VIRY COTE MD April 18, 2019 22:29
--- NOTE | 2019-04-19 00:09 | NUR ---
Pt. this evening was talking on the phone to her daughter, when this medical writer came on shift. She has been calm, pleasant, and interacting appropriately with staff and other patient's. She has been compliant with taking her HS medications this evening.
[2019-04-19] MEDS: IPRATRPIUM/ALBUTEROL 0.5/2.5MG 3 ML NEBU. NEB SCH ×4 (05:16→21:10)
[2019-04-19] MEDS: BUDESONIDE 0.5 MG/2 ML NEBU NEB SCH ×2 (05:16→21:11)
[2019-04-19 06:18] VITALS: BP 115/71
[2019-04-19] MEDS: INSULIN LISPRO 300 UNITS/3 ML INSULN.PEN. SQ SCH ×3 (08:27→17:00)
[2019-04-19] MEDS: ASPIRIN ENTERIC COATED 81 MG TABLET.DR. PO SCH (08:28)
[2019-04-19] MEDS: busPIRone 10 MG TABLET. PO SCH ×3 (08:28→20:00)
[2019-04-19] MEDS: MULTIVITAMIN I-VITE TABLET. PO SCH (08:28)
[2019-04-19] MEDS: EZETIMIBE 10 MG TABLET PO SCH (08:29)
[2019-04-19] MEDS: ISOSORBIDE MONONITRATE ER 30 MG TAB.ER.24H PO SCH (08:31)
[2019-04-19] MEDS: LINAGLIPTIN 5 MG TABLET PO SCH (08:32)
[2019-04-19] MEDS: LACTOBACILLUS RHAMNOSUS GG 1 CAPSULE. PO SCH ×2 (08:32→20:00)
[2019-04-19] MEDS: GLIMEPIRIDE 2 MG TABLET PO SCH ×2 (08:32→17:12)
[2019-04-19] MEDS: FERROUS SULFATE 325 MG TABLET. PO SCH (08:32)
[2019-04-19] MEDS: CALCIUM CARB/VIT D3 500/200 TABLET PO SCH (08:32)
--- NOTE | 2019-04-19 10:04 | NUR ---
WEEKLY ACTIVITY THERAPY NOTE Date of Admission: 04/05/2019 Date of AT Assessment: 04/06/2019 Goal aimed: to increase socialization and relaxation techniques Initial Goal: Pt. will participate in at least one Activity Therapy group per day. Weekly progress towards goal: did not achieve, no group on Tuesday or Tuesday Group participation level: minimal to moderate Weekly highlights: enjoyed flower arranging on Tuesday Behaviors observed: similar behaviors as last week, calm, sleeping often, social Plan: no change to goal Beneficial adaptations: portable oxygen device, conversational groups, descriptive prompts, loves trivia
--- NOTE | 2019-04-19 10:11 | NUR ---
WEEKLY NOTE: Pt is eating and sleeping well. Pt is calm and cooperative, with great group participation. Pt is interactive and doing well with others. Pt ELOS is scheduled for Tuesday. Pt has had no delusions or hallucinations noted in over a week.
[2019-04-19 15:49] VITALS: BP 127/83
--- NOTE | 2019-04-19 16:29 | NUR ---
Patient was compliant with medications . She is currently on 2L oxygen [place] with O2 sat 100%. She is calm and cooperative. She asks for assistance when needed. She has had no delusions or adverse behaviors this shift.
[2019-04-19] MEDS: DULoxetine HCL 60 MG CAPSULE.DR PO SCH (20:00)
[2019-04-19] MEDS: risperiDONE 0.5 MG TABLET. PO SCH (20:02)
--- NOTE | 2019-04-19 22:29 | PDOC ---
Exam Note: [place] Note: Please also refer to the separate dictated note~for this date of service dictated separately.~Patient seen individually. Discussed the patient with Nursing staff reviewed the chart.~Reviewed interim history and current functioning. Reviewed vital signs,~Labs/ Radiology~and current medications noted below. Continue current treatment with the changes noted in the dictated addendum note Assessment: Vital Signs: Vital Signs Date Time Temp Pulse Resp B/P (MAP) Pulse Ox O2 Delivery O2 Flow Rate FiO2 04/19/19 16:25 96 Nasal Cannula 2.0 04/19/19 15:49 97.3 96 18 127/83 (98) I&O Intake and Output 04/19/19 07:00 Intake Total 740 ml Balance 740 ml Intake Oral 740 ml # Voids 1 Labs: Laboratory Tests Test 04/19/19 08:07 04/19/19 11:38 04/19/19 16:29 04/19/19 19:13 Glucose (Fingerstick) 97 mg/dL (70-99) 175 mg/dL (70-99) H 76 mg/dL (70-99) 179 mg/dL (70-99) H Current Medications: Meds: Current Medications Acetaminophen (Tylenol) 650 mg PRN Q6HRS PRN PO PAIN / TEMP Last administered on 04/18/19at 19:59; Start 04/05/19 at 16:00 Multi-Ingredient Ointment (Analgesic [place]) 1 odalys PRN QID PRN TP MUSCLE PAIN; Start 04/05/19 at 16:00 Al Hydroxide/Mg Hydroxide (Mylanta Plus Xs) 15 ml PRN AFTMEALHC PRN PO DYSPEPSIA; Start 04/05/19 at 16:00 Magnesium Hydroxide (Milk Of Magnesia) 2,400 mg PRN QHS PRN PO CONSTIPATION; Start 04/05/19 at 16:00 Acetaminophen (Tylenol) 650 mg PRN Q6HRS PRN PO PAIN / TEMP; Start 04/05/19 at 17:30; Status UNV Albuterol Sulfate (Ventolin) 2.5 mg PRN Q6HRS PRN IH SHORTNESS OF BREATH; Sta rt 04/05/19 at 17:30 Calcium/Vitamin D (Oscal D 500mg/ 200uts) 1 tab DAILY PO Last administered on 04/19/19at 08:32; Start 04/06/19 at 09:00 Dicyclomine HCl (Bentyl) 20 mg PRN Q8HRS PRN PO IRRITABLE BOWEL; Start 04/05/19 at 18:00 Ferrous Sulfate (Feosol) 325 mg DAILY PO Last administered on 04/19/19 08:32; Start 04/06/19 at 09:00 Acetaminophen/ Hydrocodone Bitart (Lortab 5/325) 1 tab PRN Q4HRS PRN PO PAIN; Start 04/05/19 at 17:30 Albuterol/ Ipratropium (Duoneb) 3 ml RTQID NEB Last administered on 04/19/19 21:10; Start 04/05/19 at 20:00 Aspirin (Aspirin Enteric Coated) 81 mg DAILY PO Last administered on 04/19/19 08:28; Start 04/06/19 at 09:00 Bisacodyl (Dulcolax Supp) 10 mg PRN DAILY PRN MS CONSTIPATION; Start 04/05/19 at 18:00 Non-Formulary Medication (Budesonide (Pulmicort)) 0.5 mg BID IH ; Start 04/05/19 at 21:00; Status UNV Buspirone HCl (Buspar) 10 mg TID PO Last administered on 04/19/19 20:00; Start 04/05/19 at 21:00 Duloxetine HCl (Cymbalta) 60 mg QHS PO Last administered on 04/19/19 20:00; Start 04/05/19 at 21:00 EZETIMIBE (Zetia) 10 mg DAILY PO Last administered on 04/19/19 08:29; Start 04/06/19 at 09:00 Glimepiride (Amaryl) 4 mg BIDWMEALS PO Last administered on 04/19/19 17:12; Start 04/05/19 at 21:00 Haloperidol (Haldol) 5 mg PRN Q8HRS PRN PO PSYCHOSIS Last administered on 04/09/19 01:37; Start 04/05/19 at 18:00 Non-Formulary Medication (Insulin Aspart (Novolog Flexpen)) FSBS 150-2,00; giv... TIDBFRMEAL SQ ; Start 04/06/19 at 07:30; Status UNV Isosorbide Mononitrate (Imdur) 60 mg DAILY PO Last administered on 04/17/19 09:42; Start 04/06/19 at 09:00; Stop 04/17/19 at 17:28; Status DC Loperamide HCl (Imodium) 2 mg PRN Q2HR PRN PO DIARRHEA; Start 04/05/19 at 18:15 Ondansetron HCl (Zofran Odt) 4 mg PRN Q6HRS PRN PO NAUSEA/VOMITING; Start 04/05/19 at 18:15 Polyethylene Glycol (miraLAX) 17 gm PRN DAILY PRN PO CONSTIPATION; Start 04/05/19 at 18:15 Risperidone (RisperDAL) 1 mg QHS PO Last administered on 04/11/19 19:51; Start 04/05/19 at 21:00; Stop 04/12/19 at 12:18; Status DC Linagliptin (Tradjenta) 5 mg DAILY PO Last administered on 04/19/19 08:32; Start 04/06/19 at 09:00 Multivitamins/ Minerals (I-[place]) 1 tab DAILY PO Last administered on 04/19/19 08:28; Start 04/06/19 at 09:00 Budesonide (Pulmicort) 0.5 mg RTBID NEB Last administered on 04/19/19 21:11; Start 04/05/19 at 20:00 Insulin Human Lispro (HumaLOG) 0-5 UNITS TIDWMEALS SQ Last administered on 04/19/19 12:30; Start 04/06/19 at 08:00 Levofloxacin (Levaquin) 500 mg DAILY07 PO Last administered on 04/16/19 05:24; Start 04/09/19 at 22:00; Stop 04/16/19 at 22:00; Status DC Lactobacillus Rhamnosus (Culturelle) 1 cap BID PO Last administered on 04/19/19 20:00; Start 04/09/19 at 21:00 Risperidone (RisperDAL) 0.75 mg QHS PO Last administered on 04/19/19 20:02; Start 04/12/19 at 21:00 Isosorbide Mononitrate (Imdur) 30 mg DAILY PO Last administered on 04/19/19 08:31; Start 04/18/19 at 09:00 Active Scripts Active Reported Dicyclomine Hcl 20 Mg Tablet 20 Mg PO PRN Q8HRS PRN Ventolin Hfa Inhaler (Albuterol Sulfate) 18 Gm Hfa.aer.ad 2 Puff IH PRN Q6HRS PRN Tylenol (Acetaminophen) 325 Mg Tablet 650 Mg PO PRN Q6HRS PRN Risperdal (Risperidone) 1 Mg Tablet 1 Mg PO QHS Pulmicort (Budesonide) 0.5 Mg/2 Ml Ampul.neb 0.5 Mg IH BID Preservision Areds Softgel (Vit A/Vit C/Vit E/Zinc/Copper) 1 Each Capsule 1 Each PO DAILY Miralax (Polyethylene Glycol 3350) 17 Gm Powd.pack 17 Gm PO PRN DAILY PRN Ondansetron Odt (Ondansetron) 4 Mg Tab.rapdis 4 Mg PO PRN Q6HRS PRN Loperamide (Loperamide Hcl) 2 Mg Tablet 2 Mg PO PRN Q2HR PRN Januvia (Sitagliptin Phosphate) 100 Mg Tablet 100 Mg PO DAILY Isosorbide Mononitrate Er (Isosorbide Mononitrate) 60 Mg Tab.er.24h 60 Mg PO DAILY Novolog Flexpen (Insulin Aspart) 100 Unit/1 Ml Insuln.pen 2-6 Unit SQ TIDBFRMEAL Hydrocodone-Apap 5-325 (Hydrocodone Bit/Acetaminophen) 1 Each Tablet 1 Tab PO PRN Q4HRS PRN Haloperidol 5 Mg Tablet 5 Mg PO PRN Q8HRS PRN Glimepiride 4 Mg Tablet 4 Mg PO BID Ferrous Sulfate 325 Mg Tablet 325 Mg PO DAILY Zetia (Ezetimibe) 10 Mg Tablet 10 Mg PO DAILY Cymbalta (Duloxetine Hcl) 60 Mg Capsule.dr 60 Mg PO QHS Buspirone Hcl 10 Mg Tablet 10 Mg PO TID Bisacodyl 10 Mg Supp.rect 10 Mg RC PRN DAILY PRN Aspirin Ec (Aspirin) 81 Mg Tablet.dr 81 Mg PO DAILY Duoneb 0.5-3(2.5) Mg/3 Ml (Albuterol/Ipratropium) 3 Ml Ampul.neb 3 Ml NEB QID Calcium 500 + Vit D 200 Tablet (Calcium Carbonate/Vitamin D3) 1 Each Tablet 1 Each PO DAILY I have reviewed the current psychotropics carefully including drug interactions. Risk benefit ratio favors no change other than as noted in my dictated progress note. Diagnosis: Problems: (1) Dementia with behavioral disturbance (2) Delusional disorder (3) Dementia, vascular, with depression (4) Dementia, vascular, with delusions (5) Major depression with psychotic features VIRY COTE MD April 19, 2019 22:29
--- NOTE | 2019-04-19 23:29 | NUR ---
Pt. this evening was in the day room talking on the phone with her daughter when this engineering writer came on duty. She has been calm, pleasant, cooperative, and interacting appropriately with staff and other pt's. She has been compliant with taking her HS mediations this evening. This engineering writer received a call from the daughter, in-which the pt. was telling her that the hospital bought her an red&gold 4x4 area rug. This engineering writer assured daughter that the hospital did not by her a area rug and that she does not have one up here.
[2019-04-20] MEDS: IPRATRPIUM/ALBUTEROL 0.5/2.5MG 3 ML NEBU. NEB SCH ×4 (05:17→20:43)
[2019-04-20] MEDS: BUDESONIDE 0.5 MG/2 ML NEBU NEB SCH ×2 (05:17→20:43)
[2019-04-20 06:02] VITALS: BP 100/64
[2019-04-20] MEDS: INSULIN LISPRO 300 UNITS/3 ML INSULN.PEN. SQ SCH ×3 (07:50→17:00)
[2019-04-20] MEDS: EZETIMIBE 10 MG TABLET PO SCH (07:50)
[2019-04-20] MEDS: LINAGLIPTIN 5 MG TABLET PO SCH (07:50)
[2019-04-20] MEDS: MULTIVITAMIN I-VITE TABLET. PO SCH (07:50)
[2019-04-20] MEDS: FERROUS SULFATE 325 MG TABLET. PO SCH (07:51)
[2019-04-20] MEDS: LACTOBACILLUS RHAMNOSUS GG 1 CAPSULE. PO SCH ×2 (07:51→19:55)
[2019-04-20] MEDS: busPIRone 10 MG TABLET. PO SCH ×3 (07:51→19:55)
[2019-04-20] MEDS: CALCIUM CARB/VIT D3 500/200 TABLET PO SCH (07:51)
[2019-04-20] MEDS: ASPIRIN ENTERIC COATED 81 MG TABLET.DR. PO SCH (07:51)
[2019-04-20] MEDS: ISOSORBIDE MONONITRATE ER 30 MG TAB.ER.24H PO SCH (07:52)
[2019-04-20] MEDS: GLIMEPIRIDE 2 MG TABLET PO SCH ×2 (07:52→17:00)
--- NOTE | 2019-04-20 11:08 | NUR ---
SHARON contacted [facility] and spoke with the SW, Bebe, re: pt return to their facility on Tuesday. SW discussed pt behaviors and her work with physical therapy. SW questioned if pt would be able to continue therapy there and the ability to send an order to support pt need. Bebe would like for pt to have a UA prior to coming back to make sure that she does not have a UTI. Bebe did comment that if she continued to have hallucinations or delusions, they would consider sending pt back. SHARON noted with Bebe, that while pt had the delusions, she was not aggressive, not did she pose as a threat. Pt has been very calm, cooperative and interactive with peers and staff. There are no concerns on the teams ends that she is able to do discharge on Tuesday. Bebe has requested a phone call Tuesday AM to ensure that pt did not have any hallucinations over the weekend and will be able to discharge to them in the afternoon.
--- NOTE | 2019-04-20 14:01 | NUR ---
[facility] Social Work Discharge Planning Form Patient Name AMY SANTOS Admit Date: 04/05/19 DISCHARGE PLAN Discharge Destination: Pt to discharge back to [facility] for fpc Care Assessment: Completed Level II Assessment: N/A Transportation: Facility will scheduled rock picker for the afternoon, once SW confirms that pt is indeed discharging. Special Instructions/Notes: Please fax all discharge orders and medication lists to the facility fax number listed below. DISCHARGE TO FACILITY Facility: [facility] Address: [address] [place] [address] Contact Name: BebeSHARON: Contact Name: Please ask for the nurse caring for pt upon admission: PCP: Dr. Keon Kemp
[2019-04-20 16:24] VITALS: BP 160/83
--- NOTE | 2019-04-20 18:39 | NUR ---
pt up to meals with walker. o2 in place. has been compliant with meds and cares.
[2019-04-20] MEDS: DULoxetine HCL 60 MG CAPSULE.DR PO SCH (19:55)
[2019-04-20] MEDS: risperiDONE 0.5 MG TABLET. PO SCH (19:55)
--- NOTE | 2019-04-20 22:39 | PDOC ---
Exam Note: [place] Note: Please also refer to the separate dictated note~for this date of service dictated separately.~Patient seen individually. Discussed the patient with Nursing staff reviewed the chart.~Reviewed interim history and current functioning. Reviewed vital signs,~Labs/ Radiology~and current medications noted below. Continue current treatment with the changes noted in the dictated addendum note Assessment: Vital Signs: Vital Signs Date Time Temp Pulse Resp B/P (MAP) Pulse Ox O2 Delivery O2 Flow Rate FiO2 04/20/19 20:44 100 Nasal Cannula 2.0 04/20/19 16:24 97.8 104 19 160/83 (108) I&O Intake and Output 04/20/19 06:59 Intake Total 600 ml Balance 600 ml Intake Oral 600 ml Labs: Laboratory Tests Test 04/20/19 07:14 04/20/19 11:11 04/20/19 17:12 04/20/19 19:17 Glucose (Fingerstick) 74 mg/dL (70-99) 139 mg/dL (70-99) H 119 mg/dL (70-99) H 232 mg/dL (70-99) H Current Medications: Meds: Current Medications Acetaminophen (Tylenol) 650 mg PRN Q6HRS PRN PO PAIN / TEMP Last administered on 04/18/19at 19:59; Start 04/05/19 at 16:00 Multi-Ingredient Ointment (Analgesic [place]) 1 odalys PRN QID PRN TP MUSCLE PAIN; Start 04/05/19 at 16:00 Al Hydroxide/Mg Hydroxide (Mylanta Plus Xs) 15 ml PRN AFTMEALHC PRN PO DYSPEPSIA; Start 04/05/19 at 16:00 Magnesium Hydroxide (Milk Of Magnesia) 2,400 mg PRN QHS PRN PO CONSTIPATION; Start 04/05/19 at 16:00 Acetaminophen (Tylenol) 650 mg PRN Q6HRS PRN PO PAIN / TEMP; Start 04/05/19 at 17:30; Status UNV Albuterol Sulfate (Ventolin) 2.5 mg PRN Q6HRS PRN IH SHORTNESS OF BREATH; Start 04/05/19 at 17:30 Calcium/Vitamin D (Oscal D 500mg/ 200uts) 1 tab DAILY PO Last administered on 04/20/19at 07:51; Start 04/06/19 at 09:00 Dicyclomine HCl (Bentyl) 20 mg PRN Q8HRS PRN PO IRRITABLE BOWEL; Start 04/05/19 at 18:00 Ferrous Sulfate (Feosol) 325 mg DAILY PO Last administered on 04/20/19 07:51; Start 04/06/19 at 09:00 Acetaminophen/ Hydrocodone Bitart (Lortab 5/325) 1 tab PRN Q4HRS PRN PO PAIN; Start 04/05/19 at 17:30 Albuterol/ Ipratropium (Duoneb) 3 ml RTQID NEB Last administered on 04/20/19 2 0:43; Start 04/05/19 at 20:00 Aspirin (Aspirin Enteric Coated) 81 mg DAILY PO Last administered on 04/20/19 07:51; Start 04/06/19 at 09:00 Bisacodyl (Dulcolax Supp) 10 mg PRN DAILY PRN MS CONSTIPATION; Start 04/05/19 at 18:00 Non-Formulary Medication (Budesonide (Pulmicort)) 0.5 mg BID IH ; Start 04/05/19 at 21:00; Status UNV Buspirone HCl (Buspar) 10 mg TID PO Last administered on 04/20/19 19:55; Start 04/05/19 at 21:00 Duloxetine HCl (Cymbalta) 60 mg QHS PO Last administered on 04/20/19 19:55; Start 04/05/19 at 21:00 EZETIMIBE (Zetia) 10 mg DAILY PO Last administered on 04/20/19 07:50; Start 04/06/19 at 09:00 Glimepiride (Amaryl) 4 mg BIDWMEALS PO Last administered on 04/20/19 17:00; Start 04/05/19 at 21:00 Haloperidol (Haldol) 5 mg PRN Q8HRS PRN PO PSYCHOSIS Last administered on 04/09/19 01:37; Start 04/05/19 at 18:00 Non-Formulary Medication (Insulin Aspart (Novolog Flexpen)) FSBS 150-2,00; giv... TIDBFRMEAL SQ ; Start 04/06/19 at 07:30; Status UNV Isosorbide Mononitrate (Imdur) 60 mg DAILY PO Last administered on 04/17/19 09:42; Start 04/06/19 at 09:00; Stop 04/17/19 at 17:28; Status DC Loperamide HCl (Imodium) 2 mg PRN Q2HR PRN PO DIARRHEA; Start 04/05/19 at 18:15 Ondansetron HCl (Zofran Odt) 4 mg PRN Q6HRS PRN PO NAUSEA/VOMITING; Start 04/05/19 at 18:15 Polyethylene Glycol (miraLAX) 17 gm PRN DAILY PRN PO CONSTIPATION; Start 04/05/19 at 18:15 Risperidone (RisperDAL) 1 mg QHS PO Last administered on 04/11/19 19:51; Start 04/05/19 at 21:00; Stop 04/12/19 at 12:18; Status DC Linagliptin (Tradjenta) 5 mg DAILY PO Last administered on 04/20/19 07:50; Start 04/06/19 at 09:00 Multivitamins/ Minerals (I-[place]) 1 tab DAILY PO Last administered on 04/20/19 07:50; Start 04/06/19 at 09:00 Budesonide (Pulmicort) 0.5 mg RTBID NEB Last administered on 04/20/19 20:43; Start 04/05/19 at 20:00 Insulin Human Lispro (HumaLOG) 0-5 UNITS TIDWMEALS SQ Last administered on 12:30; Start 04/06/19 at 08:00 Levofloxacin (Levaquin) 500 mg DAILY07 PO Last administered on 04/16/19 05:24; Start 04/09/19 at 22:00; Stop 04/16/19 at 22:00; Status DC Lactobacillus Rhamnosus (Culturelle) 1 cap BID PO Last administered on 03/23 19:55; Start 04/09/19 at 21:00 Risperidone (RisperDAL) 0.75 mg QHS PO Last administered on 04/20/19 19:55; Start 04/12/19 at 21:00 Isosorbide Mononitrate (Imdur) 30 mg DAILY PO Last administered on 04/19/19at 08:31; Start 04/18/19 at 09:00 Active Scripts Active Reported Dicyclomine Hcl 20 Mg Tablet 20 Mg PO PRN Q8HRS PRN Ventolin Hfa Inhaler (Albuterol Sulfate) 18 Gm Hfa.aer.ad 2 Puff IH PRN Q6HRS PRN Tylenol (Acetaminophen) 325 Mg Tablet 650 Mg PO PRN Q6HRS PRN Risperdal (Risperidone) 1 Mg Tablet 1 Mg PO QHS Pulmicort (Budesonide) 0.5 Mg/2 Ml Ampul.neb 0.5 Mg IH BID Preservision Areds Softgel (Vit A/Vit C/Vit E/Zinc/Copper) 1 Each Capsule 1 Each PO DAILY Miralax (Polyethylene Glycol 3350) 17 Gm Powd.pack 17 Gm PO PRN DAILY PRN Ondansetron Odt (Ondansetron) 4 Mg Tab.rapdis 4 Mg PO PRN Q6HRS PRN Loperamide (Loperamide Hcl) 2 Mg Tablet 2 Mg PO PRN Q2HR PRN Januvia (Sitagliptin Phosphate) 100 Mg Tablet 100 Mg PO DAILY Isosorbide Mononitrate Er (Isosorbide Mononitrate) 60 Mg Tab.er.24h 60 Mg PO DAILY Novolog Flexpen (Insulin Aspart) 100 Unit/1 Ml Insuln.pen 2-6 Unit SQ TIDBFRMEAL Hydrocodone-Apap 5-325 (Hydrocodone Bit/Acetaminophen) 1 Each Tablet 1 Tab PO PRN Q4HRS PRN Haloperidol 5 Mg Tablet 5 Mg PO PRN Q8HRS PRN Glimepiride 4 Mg Tablet 4 Mg PO BID Ferrous Sulfate 325 Mg Tablet 325 Mg PO DAILY Zetia (Ezetimibe) 10 Mg Tablet 10 Mg PO DAILY Cymbalta (Duloxetine Hcl) 60 Mg Capsule.dr 60 Mg PO QHS Buspirone Hcl 10 Mg Tablet 10 Mg PO TID Bisacodyl 10 Mg Supp.rect 10 Mg RC PRN DAILY PRN Aspirin Ec (Aspirin) 81 Mg Tablet.dr 81 Mg PO DAILY Duoneb 0.5-3(2.5) Mg/3 Ml (Albuterol/Ipratropium) 3 Ml Ampul.neb 3 Ml NEB QID Calcium 500 + Vit D 200 Tablet (Calcium Carbonate/Vitamin D3) 1 Each Tablet 1 Each PO DAILY I have reviewed the current psychotropics carefully including drug interactions. Risk benefit ratio favors no change other than as noted in my dictated progress note. Diagnosis: Problems: (1) Dementia with behavioral disturbance (2) Delusional disorder (3) Dementia, vascular, with depression (4) Dementia, vascular, with delusions (5) Major depression with psychotic features VIRY COTE MD April 20, 2019 22:39
--- NOTE | 2019-04-20 23:28 | NUR ---
Nursing Note Pt cooperative and compliant in day room, smiles on approach is social with peers.
--- NOTE | 2019-04-21 00:40 | PN ---
DATE: 04/18/2019 PSYCHIATRIC PROGRESS NOTE This late entry 04/18/2019 covers elements not covered in my initial note. SUBJECTIVE: I met with the patient in the evening of 04/18/2019. The patient slept 6-3/4 hours previous evening. She has been pleasant, doing better per nursing report, confused. REVIEW OF SYSTEMS: No CV, , pulmonary, eye, ENT system symptoms on review. Reliability poor. MENTAL STATUS EXAM: Oriented to herself. Insight, judgment, recent and remote memory, attention, concentration, fund of knowledge poor, consistent with her diagnosis mentioned in my initial note. PLAN: No change from initial note. MAN Treasure COTE MD DR: OSCAR/bhavin JOB#: [id number] / [id number]
--- NOTE | 2019-04-21 00:43 | PN ---
DATE: 04/19/2019 PSYCHIATRIC PROGRESS NOTE This late entry 04/19/2019 covers elements not covered in my initial note. SUBJECTIVE: I met with the patient in the evening and staffed at a treatment team meeting with the entire team in the morning. Review of the patient's history, diagnosis, treatment team meeting. She slept 8-1/2 hours. Appetite 75-100%, confused, calm, cooperative, went to groups and ate all the M&Ms, oblivious of why they were there as a reward for answering questions correctly. REVIEW OF SYSTEMS: Some shortness of breath, on O2 supplements, reduced to 2 liters, impaired ambulation. No CV, GI, , ENT system symptoms on review. MENTAL STATUS EXAM: Oriented to herself, situation, did not seem to recognize me even though I see her every day. Abstraction fair, computation impaired, language function intact. Mood and affect is improved. No suicidal or homicidal ideation. LABORATORY DATA: Reviewed. IMPRESSION: Unchanged from initial note. PLAN: No change from initial note. VIRY COTE MD DR: OSCAR/bhavin JOB#: [id number] / [id number]
[2019-04-21] MEDS: BUDESONIDE 0.5 MG/2 ML NEBU NEB SCH ×2 (05:18→20:40)
[2019-04-21] MEDS: IPRATRPIUM/ALBUTEROL 0.5/2.5MG 3 ML NEBU. NEB SCH ×4 (05:18→20:35)
[2019-04-21 06:08] VITALS: BP 108/70
[2019-04-21] MEDS: CALCIUM CARB/VIT D3 500/200 TABLET PO SCH (07:55)
[2019-04-21] MEDS: FERROUS SULFATE 325 MG TABLET. PO SCH (07:55)
[2019-04-21] MEDS: MULTIVITAMIN I-VITE TABLET. PO SCH (07:55)
[2019-04-21] MEDS: EZETIMIBE 10 MG TABLET PO SCH (07:55)
[2019-04-21] MEDS: ASPIRIN ENTERIC COATED 81 MG TABLET.DR. PO SCH (07:55)
[2019-04-21] MEDS: busPIRone 10 MG TABLET. PO SCH ×3 (07:56→19:52)
[2019-04-21] MEDS: LACTOBACILLUS RHAMNOSUS GG 1 CAPSULE. PO SCH ×2 (07:56→19:52)
[2019-04-21] MEDS: LINAGLIPTIN 5 MG TABLET PO SCH (07:56)
[2019-04-21] MEDS: INSULIN LISPRO 300 UNITS/3 ML INSULN.PEN. SQ SCH ×3 (07:56→17:00)
[2019-04-21] MEDS: GLIMEPIRIDE 2 MG TABLET PO SCH ×2 (07:56→17:00)
[2019-04-21] MEDS: ISOSORBIDE MONONITRATE ER 30 MG TAB.ER.24H PO SCH (07:57)
[2019-04-21 16:50] VITALS: BP 127/82
--- NOTE | 2019-04-21 17:43 | NUR ---
pt out to meals and groups. has been compliant with meds and cares.
[2019-04-21] MEDS: DULoxetine HCL 60 MG CAPSULE.DR PO SCH (19:52)
[2019-04-21] MEDS: risperiDONE 0.5 MG TABLET. PO SCH (19:53)
--- NOTE | 2019-04-21 22:38 | PDOC ---
Exam Note: [place]ito Note: Please also refer to the separate dictated note~for this date of service dictated separately.~Patient seen individually. Discussed the patient with Nursing staff reviewed the chart.~Reviewed interim history and current functioning. Reviewed vital signs,~Labs/ Radiology~and current medications noted below. Continue current treatment with the changes noted in the dictated addendum note Assessment: Vital Signs: Vital Signs Date Time Temp Pulse Resp B/P (MAP) Pulse Ox O2 Delivery O2 Flow Rate FiO2 04/21/19 20:40 94 Nasal Cannula 2.0 04/21/19 16:50 97.7 102 20 127/82 (97) I&O Intake and Output 04/21/19 06:59 Intake Total 600 ml Balance 600 ml Intake Oral 600 ml Labs: Laboratory Tests Test 04/21/19 07:19 04/21/19 11:49 04/21/19 16:38 04/21/19 19:26 Glucose (Fingerstick) 84 mg/dL (70-99) 149 mg/dL (70-99) H 107 mg/dL (70-99) H 123 mg/dL (70-99) H Current Medications: Meds: Current Medications Acetaminophen (Tylenol) 650 mg PRN Q6HRS PRN PO PAIN / TEMP Last administered on 04/18/19at 19:59; Start 04/05/19 at 16:00 Multi-Ingredient Ointment (Analgesic [place]) 1 oadlys PRN QID PRN TP MUSCLE PAIN; Start 04/05/19 at 16:00 Al Hydroxide/Mg Hydroxide (Mylanta Plus Xs) 15 ml PRN AFTMEALHC PRN PO DYSPEPSIA; Start 04/05/19 at 16:00 Magnesium Hydroxide (Milk Of Magnesia) 2,400 mg PRN QHS PRN PO CONSTIPATION; Start 04/05/19 at 16:00 Acetaminophen (Tylenol) 650 mg PRN Q6HRS PRN PO PAIN / TEMP; Start 04/05/19 at 17:30; Status UNV Albuterol Sulfate (Ventolin) 2.5 mg PRN Q6HRS PRN IH SHORTNESS OF BREATH; Start 04/05/19 at 17:30 Calcium/Vitamin D (Oscal D 500mg/ 200uts) 1 tab DAILY PO Last administered on 04/21/19at 07:55; Start 04/06/19 at 09:00 Dicyclomine HCl (Bentyl) 20 mg PRN Q8HRS PRN PO IRRITABLE BOWEL; Start 04/05/19 at 18:00 Ferrous Sulfate (Feosol) 325 mg DAILY PO Last administered on 04/21/19at 07:55; Start 04/06/19 at 09:00 Acetaminophen/ Hydrocodone Bitart (Lortab 5/325) 1 tab PRN Q4HRS PRN PO PAIN; Start 04/05/19 at 17:30 Albuterol/ Ipratropium (Duoneb) 3 ml RTQID NEB Last administered on 04/21/19at 20:35; Start 04/05/19 at 20:00 Aspirin (Aspirin Enteric Coated) 81 mg DAILY PO Last administered on 04/21/19 07:55; Start 04/06/19 at 09:00 Bisacodyl (Dulcolax Supp) 10 mg PRN DAILY PRN [place] CONSTIPATION; Start 04/05/19 at 18:00 Non-Formulary Medication (Budesonide (Pulmicort)) 0.5 mg BID IH ; Start 04/05/19 at 21:00; Status UNV Buspirone HCl (Buspar) 10 mg TID PO Last administered on 04/21/19 19:52; Start 04/05/19 at 21:00 Duloxetine HCl (Cymbalta) 60 mg QHS PO Last administered on 04/21/19 19:52; Start 04/05/19 at 21:00 EZETIMIBE (Zetia) 10 mg DAILY PO Last administered on 04/21/19 07:55; Start 04/06/19 at 09:00 Glimepiride (Amaryl) 4 mg BIDWMEALS PO Last administered on 04/21/19 17:00; Start 04/05/19 at 21:00 Haloperidol (Haldol) 5 mg PRN Q8HRS PRN PO PSYCHOSIS Last administered on 04/09/19at 01:37; Start 04/05/19 at 18:00 Non-Formulary Medication (Insulin Aspart (Novolog Flexpen)) FSBS 150-2,00; giv... TIDBFRMEAL SQ ; Start 04/06/19 at 07:30; Status UNV Isosorbide Mononitrate (Imdur) 60 mg DAILY PO Last administered on 04/17/19 09:42; Start 04/06/19 at 09:00; Stop 04/17/19 at 17:28; Status DC Loperamide HCl (Imodium) 2 mg PRN Q2HR PRN PO DIARRHEA; Start 04/05/19 at 18:15 Ondansetron HCl (Zofran Odt) 4 mg PRN Q6HRS PRN PO NAUSEA/VOMITING; Start 04/05/19 at 18:15 Polyethylene Glycol (miraLAX) 17 gm PRN DAILY PRN PO CONSTIPATION; Start 04/05/19 at 18:15 Risperidone (RisperDAL) 1 mg QHS PO Last administered on 04/11/19 19:51; Start 04/05/19 at 21:00; Stop 04/12/19 at 12:18; Status DC Linagliptin (Tradjenta) 5 mg DAILY PO Last administered on 04/21/19 07:56; Start 04/06/19 at 09:00 Multivitamins/ Minerals (I-[place]) 1 tab DAILY PO Last administered on 04/21/19 07:55; Start 04/06/19 at 09:00 Budesonide (Pulmicort) 0.5 mg RTBID NEB Last administered on 04/21/19 20:40; Start 04/05/19 at 20:00 Insulin Human Lispro (HumaLOG) 0-5 UNITS TIDWMEALS SQ Last administered on 04/19/19 12:30; Start 04/06/19 at 08:00 Levofloxacin (Levaquin) 500 mg DAILY07 PO Last administered on 04/16/19at 05:24; Start 04/09/19 at 22:00; Stop 04/16/19 at 22:00; Status DC Lactobacillus Rhamnosus (Culturelle) 1 cap BID PO Last administered on 04/21/19 19:52; Start 04/09/19 at 21:00 Risperidone (RisperDAL) 0.75 mg QHS PO Last administered on 04/21/19 19:53; Start 04/12/19 at 21:00 Isosorbide Mononitrate (Imdur) 30 mg DAILY PO Last administered on 04/19/19at 08:31; Start 04/18/19 at 09:00 Active Scripts Active Reported Dicyclomine Hcl 20 Mg Tablet 20 Mg PO PRN Q8HRS PRN Ventolin Hfa Inhaler (Albuterol Sulfate) 18 Gm Hfa.aer.ad 2 Puff IH PRN Q6HRS PRN Tylenol (Acetaminophen) 325 Mg Tablet 650 Mg PO PRN Q6HRS PRN Risperdal (Risperidone) 1 Mg Tablet 1 Mg PO QHS Pulmicort (Budesonide) 0.5 Mg/2 Ml Ampul.neb 0.5 Mg IH BID Preservision Areds Softgel (Vit A/Vit C/Vit E/Zinc/Copper) 1 Each Capsule 1 Each PO DAILY Miralax (Polyethylene Glycol 3350) 17 Gm Powd.pack 17 Gm PO PRN DAILY PRN Ondansetron Odt (Ondansetron) 4 Mg Tab.rapdis 4 Mg PO PRN Q6HRS PRN Loperamide (Loperamide Hcl) 2 Mg Tablet 2 Mg PO PRN Q2HR PRN Januvia (Sitagliptin Phosphate) 100 Mg Tablet 100 Mg PO DAILY Isosorbide Mononitrate Er (Isosorbide Mononitrate) 60 Mg Tab.er.24h 60 Mg PO DAILY Novolog Flexpen (Insulin Aspart) 100 Unit/1 Ml Insuln.pen 2-6 Unit SQ TIDBFRMEAL Hydrocodone-Apap 5-325 (Hydrocodone Bit/Acetaminophen) 1 Each Tablet 1 Tab PO PRN Q4HRS PRN Haloperidol 5 Mg Tablet 5 Mg PO PRN Q8HRS PRN Glimepiride 4 Mg Tablet 4 Mg PO BID Ferrous Sulfate 325 Mg Tablet 325 Mg PO DAILY Zetia (Ezetimibe) 10 Mg Tablet 10 Mg PO DAILY Cymbalta (Duloxetine Hcl) 60 Mg Capsule.dr 60 Mg PO QHS Buspirone Hcl 10 Mg Tablet 10 Mg PO TID Bisacodyl 10 Mg Supp.rect 10 Mg RC PRN DAILY PRN Aspirin Ec (Aspirin) 81 Mg Tablet.dr 81 Mg PO DAILY Duoneb 0.5-3(2.5) Mg/3 Ml (Albuterol/Ipratropium) 3 Ml Ampul.neb 3 Ml NEB QID Calcium 500 + Vit D 200 Tablet (Calcium Carbonate/Vitamin D3) 1 Each Tablet 1 Each PO DAILY I have reviewed the current psychotropics carefully including drug interactions. Risk benefit ratio favors no change other than as noted in my dictated progress note. Diagnosis: Problems: (1) Dementia with behavioral disturbance (2) Delusional disorder (3) Dementia, vascular, with depression (4) Dementia, vascular, with delusions (5) Major depression with psychotic features VIRY COTE MD Apr 21, 2019 22:38
--- NOTE | 2019-04-21 23:26 | NUR ---
Pt located in the dayroom this evening. Pt sitting calmly, is pleasant and interactive with staff. Compliant with HS medications. No behaviors noted.
[2019-04-22] MEDS: IPRATRPIUM/ALBUTEROL 0.5/2.5MG 3 ML NEBU. NEB SCH ×4 (05:05→20:15)
[2019-04-22 06:24] VITALS: BP 107/73
[2019-04-22] MEDS: INSULIN LISPRO 300 UNITS/3 ML INSULN.PEN. SQ SCH ×3 (08:00→16:56)
[2019-04-22] MEDS: FERROUS SULFATE 325 MG TABLET. PO SCH (08:02)
[2019-04-22] MEDS: MULTIVITAMIN I-VITE TABLET. PO SCH (08:02)
[2019-04-22] MEDS: EZETIMIBE 10 MG TABLET PO SCH (08:02)
[2019-04-22] MEDS: busPIRone 10 MG TABLET. PO SCH ×3 (08:02→20:06)
[2019-04-22] MEDS: CALCIUM CARB/VIT D3 500/200 TABLET PO SCH (08:02)
[2019-04-22] MEDS: ASPIRIN ENTERIC COATED 81 MG TABLET.DR. PO SCH (08:02)
[2019-04-22] MEDS: LACTOBACILLUS RHAMNOSUS GG 1 CAPSULE. PO SCH ×2 (08:03→20:07)
[2019-04-22] MEDS: GLIMEPIRIDE 2 MG TABLET PO SCH ×2 (08:03→16:53)
[2019-04-22] MEDS: ISOSORBIDE MONONITRATE ER 30 MG TAB.ER.24H PO SCH (08:03)
[2019-04-22] MEDS: LINAGLIPTIN 5 MG TABLET PO SCH (08:03)
[2019-04-22] MEDS: BUDESONIDE 0.5 MG/2 ML NEBU NEB SCH ×2 (11:20→20:15)
[2019-04-22] MEDS ORDERED: ISOS30TA4 PO (14:24)
[2019-04-22] MEDS ORDERED: MAG355OR12 PO (14:25)
[2019-04-22] MEDS ORDERED: MAGN2400 PO (14:26)
[2019-04-22] MEDS ORDERED: MENT113G6 TP (14:28)
[2019-04-22 16:21] VITALS: BP 123/79
--- NOTE | 2019-04-22 18:06 | NUR ---
pt up adl to meals. compliant with meds and cares.
[2019-04-22] MEDS: risperiDONE 0.5 MG TABLET. PO SCH (20:06)
[2019-04-22] MEDS: DULoxetine HCL 60 MG CAPSULE.DR PO SCH (20:06)
--- NOTE | 2019-04-22 22:42 | PDOC ---
Exam Note: Benito Note: Please also refer to the separate dictated note~for this date of service dictated separately.~Patient seen individually. Discussed the patient with Nursing staff reviewed the chart.~Reviewed interim history and current functioning. Reviewed vital signs,~Labs/ Radiology~and current medications noted below. Continue current treatment with the changes noted in the dictated addendum note Assessment: Vital Signs: Vital Signs Date Time Temp Pulse Resp B/P (MAP) Pulse Ox O2 Delivery O2 Flow Rate FiO2 04/22/19 20:24 97 Nasal Cannula 2.0 04/22/19 16:21 97.6 76 18 123/79 (94) I&O Intake and Output 04/22/19 06:59 Intake Total 1080 ml Balance 1080 ml Intake Oral 1080 ml Labs: Laboratory Tests Test 04/22/19 07:04 04/22/19 11:48 04/22/19 16:44 04/22/19 19:45 Glucose (Fingerstick) 125 mg/dL (70-99) H 125 mg/dL (70-99) H 139 mg/dL (70-99) H 190 mg/dL (70-99) H Current Medications: Meds: Current Medications Acetaminophen (Tylenol) 650 mg PRN Q6HRS PRN PO PAIN / TEMP Last administered on 04/18/19at 19:59; Start 04/05/19 at 16:00 Multi-Ingredient Ointment (Analgesic [place]) 1 jennifer PRN QID PRN TP MUSCLE PAIN; Start 04/05/19 at 16:00 Al Hydroxide/Mg Hydroxide (Mylanta Plus Xs) 15 ml PRN AFTMEALHC PRN PO DYSPEPSIA; Start 04/05/19 at 16:00 Magnesium Hydroxide (Milk Of Magnesia) 2,400 mg PRN QHS PRN PO CONSTIPATION; Start 04/05/19 at 16:00 Acetaminophen (Tylenol) 650 mg PRN Q6HRS PRN PO PAIN / TEMP; Start 04/05/19 at 17:30; Status UNV Albuterol Sulfate (Ventolin) 2.5 mg PRN Q6HRS PRN IH SHORTNESS OF BREATH; Start 04/05/19 at 17:30 Calcium/Vitamin D (Oscal D 500mg/ 200uts) 1 tab DAILY PO Last administered on 04/22/19at 08:02; Start 04/06/19 at 09:00 Dicyclomine HCl (Bentyl) 20 mg PRN Q8HRS PRN PO IRRITABLE BOWEL; Start 04/05/19 at 18:00 Ferrous Sulfate (Feosol) 325 mg DAILY PO Last administered on 04/22/19 08:02; Start 04/06/19 at 09:00 Acetaminophen/ Hydrocodone Bitart (Lortab 5/325) 1 tab PRN Q4HRS PRN PO PAIN; Start 04/05/19 at 17:30 Albuterol/ Ipratropium (Duoneb) 3 ml RTQID NEB Last administered on 04/22/19 20:15; Start 04/05/19 at 20:00 Aspirin (Aspirin Enteric Coated) 81 mg DAILY PO Last administered on 04/22/19 08:02; Start 04/06/19 at 09:00 Bisacodyl (Dulcolax Supp) 10 mg PRN DAILY PRN [place] CONSTIPATION; Start 04/05/19 at 18:00 Non-Formulary Medication (Budesonide (Pulmicort)) 0.5 mg BID IH ; Start 04/05/19 at 21:00; Status UNV Buspirone HCl (Buspar) 10 mg TID PO Last administered on 04/22/19 20:06; Start 04/05/19 at 21:00 Duloxetine HCl (Cymbalta) 60 mg QHS PO Last administered on 04/22/19 20:06; Start 04/05/19 at 21:00 EZETIMIBE (Zetia) 10 mg DAILY PO Last administered on 04/22/19 08:02; Start 04/06/19 at 09:00 Glimepiride (Amaryl) 4 mg BIDWMEALS PO Last administered on 04/22/19 16:53; Start 04/05/19 at 21:00 Haloperidol (Haldol) 5 mg PRN Q8HRS PRN PO PSYCHOSIS Last administered on 04/09/19 01:37; Start 04/05/19 at 18:00 Non-Formulary Medication (Insulin Aspart (Novolog Flexpen)) FSBS 150-2,00; giv... TIDBFRMEAL SQ ; Start 04/06/19 at 07:30; Status UNV Isosorbide Mononitrate (Imdur) 60 mg DAILY PO Last administered on 04/17/19 09:42; Start 04/06/19 at 09:00; Stop 04/17/19 at 17:28; Status DC Loperamide HCl (Imodium) 2 mg PRN Q2HR PRN PO DIARRHEA; Start 04/05/19 at 18:15 Ondansetron HCl (Zofran Odt) 4 mg PRN Q6HRS PRN PO NAUSEA/VOMITING; Start 04/05/19 at 18:15 Polyethylene Glycol (miraLAX) 17 gm PRN DAILY PRN PO CONSTIPATION; Start 04/05/19 at 18:15 Risperidone (RisperDAL) 1 mg QHS PO Last administered on 04/11/19 19:51; Start 04/05/19 at 21:00; Stop 04/12/19 at 12:18; Status DC Linagliptin (Tradjenta) 5 mg DAILY PO Last administered on 04/22/19 08:03; Start 04/06/19 at 09:00 Multivitamins/ Minerals (I-[place]) 1 tab DAILY PO Last administered on 04/22/19 08:02; Start 04/06/19 at 09:00 Budesonide (Pulmicort) 0.5 mg RTBID NEB Last administered on 04/22/19 20:15; Start 04/05/19 at 20:00 Insulin Human Lispro (HumaLOG) 0-5 UNITS TIDWMEALS SQ Last administered on 04/19/19 12:30; Start 04/06/19 at 08:00 Levofloxacin (Levaquin) 500 mg DAILY07 PO Last administered on 04/16/19 05:24; Start 04/09/19 at 22:00; Stop 04/16/19 at 22:00; Status DC Lactobacillus Rhamnosus (Culturelle) 1 cap BID PO Last administered on 04/22/19 20:07; Start 04/09/19 at 21:00 Risperidone (RisperDAL) 0.75 mg QHS PO Last administered on 04/22/19 20:06; Start 04/12/19 at 21:00 Isosorbide Mononitrate (Imdur) 30 mg DAILY PO Last administered on 04/22/19 08:03; Start 04/18/19 at 09:00 Active Scripts Active Reported [place] (Menthol) 113 Gm Gel..gram. 1 Jennifer TP PRN QID PRN Milk Of Magnesia (Magnesium Hydroxide) 2,400 Mg/10 Ml Oral.susp 2,400 Mg PO PRN QHS PRN Maalox Maximum Strength Susp (Mag Hydrox/Al Hydrox/Simeth) 355 Ml Oral.susp 15 Ml PO PRN AFTMEALHC PRN Isosorbide Mononitrate Er (Isosorbide Mononitrate) 30 Mg Tab.er.24h 30 Mg PO DAILY Dicyclomine Hcl 20 Mg Tablet 20 Mg PO PRN Q8HRS PRN Ventolin Hfa Inhaler (Albuterol Sulfate) 18 Gm Hfa.aer.ad 2 Puff IH PRN Q6HRS PRN Tylenol (Acetaminophen) 325 Mg Tablet 650 Mg PO PRN Q6HRS PRN Risperdal (Risperidone) 1 Mg Tablet 1 Mg PO QHS Pulmicort (Budesonide) 0.5 Mg/2 Ml Ampul.neb 0.5 Mg IH BID Preservision Areds Softgel (Vit A/Vit C/Vit E/Zinc/Copper) 1 Each Capsule 1 Each PO DAILY Miralax (Polyethylene Glycol 3350) 17 Gm Powd.pack 17 Gm PO PRN DAILY PRN Ondansetron Odt (Ondansetron) 4 Mg Tab.rapdis 4 Mg PO PRN Q6HRS PRN Loperamide (Loperamide Hcl) 2 Mg Tablet 2 Mg PO PRN Q2HR PRN Januvia (Sitagliptin Phosphate) 100 Mg Tablet 100 Mg PO DAILY Isosorbide Mononitrate Er (Isosorbide Mononitrate) 60 Mg Tab.er.24h 60 Mg PO DAILY Novolog Flexpen (Insulin Aspart) 100 Unit/1 Ml Insuln.pen 2-6 Unit SQ TIDBFRMEAL Hydrocodone-Apap 5-325 (Hydrocodone Bit/Acetaminophen) 1 Each Tablet 1 Tab PO PRN Q4HRS PRN Haloperidol 5 Mg Tablet 5 Mg PO PRN Q8HRS PRN Glimepiride 4 Mg Tablet 4 Mg PO BID Ferrous Sulfate 325 Mg Tablet 325 Mg PO DAILY Zetia (Ezetimibe) 10 Mg Tablet 10 Mg PO DAILY Cymbalta (Duloxetine Hcl) 60 Mg Capsule.dr 60 Mg PO QHS Buspirone Hcl 10 Mg Tablet 10 Mg PO TID Bisacodyl 10 Mg Supp.rect 10 Mg RC PRN DAILY PRN Aspirin Ec (Aspirin) 81 Mg Tablet.dr 81 Mg PO DAILY Duoneb 0.5-3(2.5) Mg/3 Ml (Albuterol/Ipratropium) 3 Ml Ampul.neb 3 Ml NEB QID Calcium 500 + Vit D 200 Tablet (Calcium Carbonate/Vitamin D3) 1 Each Tablet 1 Each PO DAILY I have reviewed the current psychotropics carefully including drug interactions. Risk benefit ratio favors no change other than as noted in my dictated progress note. Diagnosis: Problems: (1) Dementia with behavioral disturbance (2) Delusional disorder (3) Dementia, vascular, with depression (4) Dementia, vascular, with delusions (5) Major depression with psychotic features VIRY COTE MD Apr 22, 2019 22:42
--- NOTE | 2019-04-22 23:38 | NUR ---
Pt located in the dayroom this evening. Compliant with whole medications. No behaviors noted.
[2019-04-23] MEDS: IPRATRPIUM/ALBUTEROL 0.5/2.5MG 3 ML NEBU. NEB SCH ×2 (05:06→10:23)
[2019-04-23 06:25] VITALS: BP 107/55
--- NOTE | 2019-04-23 06:40 | PN ---
DATE: 04/20/2019 PSYCHIATRIC PROGRESS NOTE This late entry 04/20/2019 covers elements not covered in my initial note. SUBJECTIVE: I met with the patient in the evening. The patient slept 7-1/2 hours previous night. She is doing better, remains on 2 liters oxygen with some shortness of breath. REVIEW OF SYSTEMS: Impaired ambulation, in wheelchair. No CV, GI, , eye system symptoms on review. MENTAL STATUS EXAM: Oriented to herself, at times situation. Insight, judgment, recent and remote memory, attention, concentration, fund of knowledge poor, consistent with her diagnosis mentioned in my initial note. PLAN: No change from initial note. VIRY COTE MD DR: OSCAR/bhavin JOB#: [id number] / [id number]
--- NOTE | 2019-04-23 07:21 | PN ---
DATE: 04/21/2019 PSYCHIATRIC PROGRESS NOTE This late entry 04/21/2019 covers elements not covered in my initial note. SUBJECTIVE: I met with the patient in the evening. The patient slept 5-3/4 hours previous night. She has been calm, cooperative, pleasant and compliant with medications. Behaviors are appropriate. REVIEW OF SYSTEMS: Shortness of breath, on 2 liters oxygen; impaired ambulation with walker. No CV, GI, , eye system symptoms on review. Reliability poor. MENTAL STATUS EXAM: Oriented to herself. Insight, judgment, recent and remote memory, attention, concentration, fund of knowledge poor, consistent with her diagnosis mentioned in my initial note. PLAN: No change from initial note. VIRY COTE MD DR: OSCAR/bhavin JOB#: [id number] / [id number]
[2019-04-23 07:27] LABS: BASO % 1 % (0-3); EOS # 0.2 x10^3/uL (0.0-0.7); EOS % 3 % (0-3); HEMATOCRIT 34.3 % (36.0-47.0); HEMOGLOBIN 11.7 g/dL (12.0-15.5); LYMPH % 14 % (24-48); MEAN CORPUSCULAR HEMOGLOBIN 33 pg (25-35); MEAN CORPUSCULAR HGB CONC 34 g/dL (31-37); MEAN CORPUSCULAR VOLUME 97 fL (79-100); MONO # 0.7 x10^3/uL (0.0-1.1); MONO % 9 % (0-9); NEUT # 5.4 x10^3uL (1.8-7.7); NEUT % 74 % (31-73); PLATELET COUNT 197 x10^3/uL (140-400); RED BLOOD COUNT 3.56 x10^6/uL (3.50-5.40); RED CELL DISTRIBUTION WIDTH 13.2 % (11.5-14.5); WHITE BLOOD COUNT 7.4 x10^3/uL (4.0-11.0)
[2019-04-23 07:41] LABS: CALCIUM 9.2 mg/dL (8.5-10.1); CREATININE 0.9 mg/dL (0.6-1.0); GFR 60.9; POTASSIUM 3.9 mmol/L (3.5-5.1); TOTAL BILIRUBIN 0.7 mg/dL (0.2-1.0); TOTAL PROTEIN 5.9 g/dL (6.4-8.2)
[2019-04-23] MEDS: INSULIN LISPRO 300 UNITS/3 ML INSULN.PEN. SQ SCH ×2 (07:46→12:00)
[2019-04-23] MEDS: ASPIRIN ENTERIC COATED 81 MG TABLET.DR. PO SCH (07:48)
[2019-04-23] MEDS: LACTOBACILLUS RHAMNOSUS GG 1 CAPSULE. PO SCH (07:48)
[2019-04-23] MEDS: MULTIVITAMIN I-VITE TABLET. PO SCH (07:48)
[2019-04-23] MEDS: GLIMEPIRIDE 2 MG TABLET PO SCH (07:48)
[2019-04-23] MEDS: busPIRone 10 MG TABLET. PO SCH ×2 (07:48→13:29)
[2019-04-23] MEDS: FERROUS SULFATE 325 MG TABLET. PO SCH (07:48)
[2019-04-23 07:49] VITALS: BP 107/55
[2019-04-23] MEDS: EZETIMIBE 10 MG TABLET PO SCH (07:49)
[2019-04-23] MEDS: ISOSORBIDE MONONITRATE ER 30 MG TAB.ER.24H PO SCH (07:49)
[2019-04-23] MEDS: LINAGLIPTIN 5 MG TABLET PO SCH (07:49)
[2019-04-23] MEDS: CALCIUM CARB/VIT D3 500/200 TABLET PO SCH (07:49)
--- NOTE | 2019-04-23 08:52 | PN ---
DATE: 04/22/2019 PSYCHIATRIC PROGRESS NOTE This note covers elements not covered in my initial note 04/22/2019. SUBJECTIVE: I met with the patient in the evening. The patient slept 7-1/2 hours previous night. She remains confused, forgetful, but pleasant. REVIEW OF SYSTEMS: Impaired ambulation, shortness of breath on 2 liters oxygen. No CV, , GI system symptoms on review. MENTAL STATUS EXAM: Oriented to herself and situation. Speech has some latency, coherent. Abstraction fair, computation impaired, language function intact. She is confused, unable to recognize me even though I have seen her every day. LABORATORY DATA: Reviewed. IMPRESSION: Unchanged from initial note. PLAN: No change from initial note with possible discharge 04/23/2019. MAN Treasure COTE MD DR: OSCAR/bhavin JOB#: [id number] / [id number]
--- NOTE | 2019-04-23 09:50 | NUR ---
SHARON contacted Bebe at [facility] to inform her that pt had a really good weekend with no delusions or hallucinations noted. SHARON informed Bebe that pt was able to receive a CARE assessment on Tuesday in which SW is able to send that versus a less than 30 day order. HSARON will send an order for HH and have everything faxed over [facility] so that they are able to set up transportation for this afternoon.
[2019-04-23] MEDS: BUDESONIDE 0.5 MG/2 ML NEBU NEB SCH (10:23)
--- NOTE | 2019-04-23 11:48 | NUR ---
Patient has had a great morning, took medications, allowed morning assessment. Patient is currently walking with PT. No signs of agitation, patient is leaving today at 1430. Will continue to monitor.
--- NOTE | 2019-04-23 14:30 | NUR ---
Transition Record was faxed to follow-up provider with the following elements: Reason for admission, procedures, tests, principal diagnosis, pending studies, patient instructions, 13/06 contact information for unit, phone number to obtain pending test results, plan for follow-up care, physician follow-up, advanced directive information, and medication list with dose, duration and instructions. This information was included in the following documents: History and physical, lab results, study results, progress notes, social work planning form, DC instruction form, patient visit summary, and medication reconciliation form. Date & time record faxed: 04/23/19 @0923 Record faxed to: [facility]- [phone] Record discussed with/ report given to: Claire [phone]
--- NOTE | 2019-04-23 22:32 | PDOC ---
Exam Note: Benito Note: Please also refer to the separate dictated note~for this date of service dictated separately.~Patient seen individually. Discussed the patient with Nursing staff reviewed the chart.~Reviewed interim history and current functioning. Reviewed vital signs,~Labs/ Radiology~and current medications noted below. Continue current treatment with the changes noted in the dictated addendum note Assessment: Vital Signs: Vital Signs Date Time Temp Pulse Resp B/P (MAP) Pulse Ox O2 Delivery O2 Flow Rate FiO2 04/23/19 10:25 97 Nasal Cannula 2.0 04/23/19 07:49 79 107/55 04/23/19 06:25 97.5 16 I&O Intake and Output 04/23/19 07:00 Intake Total 1080 ml Balance 1080 ml Intake Oral 1080 ml Labs: Laboratory Tests Test 04/23/19 07:00 04/23/19 07:19 04/23/19 12:06 White Blood Count 7.4 x10^3/uL (4.0-11.0) Red Blood Count 3.56 x10^6/uL (3.50-5.40) Hemoglobin 11.7 g/dL (12.0-15.5) L Hematocrit 34.3 % (36.0-47.0) L Mean Corpuscular Volume 97 fL (79-100) Mean Corpuscular Hemoglobin 33 pg (25-35) Mean Corpuscular Hemoglobin Concent 34 g/dL (31-37) Red Cell Distribution Width 13.2 % (11.5-14.5) Platelet Count 197 x10^3/uL (140-400) Neutrophils (%) (Auto) 74 % (31-73) H Lymphocytes (%) (Auto) 14 % (24-48) L Monocytes (%) (Auto) 9 % (0-9) Eosinophils (%) (Auto) 3 % (0-3) Basophils (%) (Auto) 1 % (0-3) Neutrophils # (Auto) 5.4 x10^3uL (1.8-7.7) Lymphocytes # (Auto) 1.0 x10^3/uL (1.0-4.8) Monocytes # (Auto) 0.7 x10^3/uL (0.0-1.1) Eosinophils # (Auto) 0.2 x10^3/uL (0.0-0.7) Basophils # (Auto) 0.0 x10^3/uL (0.0-0.2) Sodium Level 141 mmol/L (136-145) Potassium Level 3.9 mmol/L (3.5-5.1) Chloride Level 103 mmol/L (98-107) Carbon Dioxide Level 31 mmol/L (21-32) Anion Gap 7 (6-14) Blood Urea Nitrogen 8 mg/dL (7-20) Creatinine 0.9 mg/dL (0.6-1.0) Estimated GFR (Cockcroft-Gault) 60.9 BUN/Creatinine Ratio 9 (6-20) Glucose Level 125 mg/dL (70-99) H Calcium Level 9.2 mg/dL (8.5-10.1) Total Bilirubin 0.7 mg/dL (0.2-1.0) Aspartate Amino Transferase (AST) 25 U/L (15-37) Alanine Aminotransferase (ALT) 28 U/L (14-59) Alkaline Phosphatase 93 U/L (46-116) Total Protein 5.9 g/dL (6.4-8.2) L Albumin 3.0 g/dL (3.4-5.0) L Albumin/Globulin Ratio 1.0 (1.0-1.7) Glucose (Fingerstick) 114 mg/dL (70-99) H 127 mg/dL (70-99) H Current Medications: Meds: Current Medications Acetaminophen (Tylenol) 650 mg PRN Q6HRS PRN PO PAIN / TEMP Last administered on 04/18/19at 19:59; Start 04/05/19 at 16:00; Stop 04/23/19 at 15:03; Status DC Multi-Ingredient Ointment (Analgesic [place]) 1 jennifer PRN QID PRN TP MUSCLE PAIN; Start 04/05/19 at 16:00; Stop 04/23/19 at 15:03; Status DC Al Hydroxide/Mg Hydroxide (Mylanta Plus Xs) 15 ml PRN AFTMEALHC PRN PO DYSPEPSIA; Start 04/05/19 at 16:00; Stop 04/23/19 at 15:03; Status DC Magnesium Hydroxide (Milk Of Magnesia) 2,400 mg PRN QHS PRN PO CONSTIPATION; Start 04/05/19 at 16:00; Stop 04/23/19 at 15:03; Status DC Acetaminophen (Tylenol) 650 mg PRN Q6HRS PRN PO PAIN / TEMP; Start 04/05/19 at 17:30; Status UNV Albuterol Sulfate (Ventolin) 2.5 mg PRN Q6HRS PRN IH SHORTNESS OF BREATH; Start 04/05/19 at 17:30; Stop 04/23/19 at 15:03; Status DC Calcium/Vitamin D (Oscal D 500mg/ 200uts) 1 tab DAILY PO Last administered on 04/23/19at 07:49; Start 04/06/19 at 09:00; Stop 04/23/19 at 15:03; Status DC Dicyclomine HCl (Bentyl) 20 mg PRN Q8HRS PRN PO IRRITABLE BOWEL; Start 04/05/19 at 18:00; Stop 04/23/19 at 15:03; Status DC Ferrous Sulfate (Feosol) 325 mg DAILY PO Last administered on 04/23/19at 07:48; Start 04/06/19 at 09:00; Stop 04/23/19 at 15:03; Status DC Acetaminophen/ Hydrocodone Bitart (Lortab 5/325) 1 tab PRN Q4HRS PRN PO PAIN; Start 04/05/19 at 17:30; Stop 04/23/19 at 15:03; Status DC Albuterol/ Ipratropium (Duoneb) 3 ml RTQID NEB Last administered on 04/23/19at 10:23; Start 04/05/19 at 20:00; Stop 04/23/19 at 15:03; Status DC Aspirin (Aspirin Enteric Coated) 81 mg DAILY PO Last administered on 04/23/19at 07:48; Start 04/06/19 at 09:00; Stop 04/23/19 at 15:03; Status DC Bisacodyl (Dulcolax Supp) 10 mg PRN DAILY PRN [place] CONSTIPATION; Start 04/05/19 at 18:00; Stop 04/23/19 at 15:03; Status DC Non-Formulary Medication (Budesonide (Pulmicort)) 0.5 mg BID IH ; Start 04/05/19 at 21:00; Status UNV Buspirone HCl (Buspar) 10 mg TID PO Last administered on 04/23/19at 13:29; Start 04/05/19 at 21:00; Stop 04/23/19 at 15:03; Status DC Duloxetine HCl (Cymbalta) 60 mg QHS PO Last administered on 04/22/19 20:06; Start 04/05/19 at 21:00; Stop 04/23/19 at 15:03; Status DC EZETIMIBE (Zetia) 10 mg DAILY PO Last administered on 04/23/19 07:49; Start 04/06/19 at 09:00; Stop 04/23/19 at 15:03; Status DC Glimepiride (Amaryl) 4 mg BIDWMEALS PO Last administered on 04/23/19 07:48; Start 04/05/19 at 21:00; Stop 04/23/19 at 15:03; Status DC Haloperidol (Haldol) 5 mg PRN Q8HRS PRN PO PSYCHOSIS Last administered on 04/09/19at 01:37; Start 04/05/19 at 18:00; Stop 04/23/19 at 15:03; Status DC Non-Formulary Medication (Insulin Aspart (Novolog Flexpen)) FSBS 150-2,00; giv... TIDBFRMEAL SQ ; Start 04/06/19 at 07:30; Status UNV Isosorbide Mononitrate (Imdur) 60 mg DAILY PO Last administered on 04/17/19at 09:42; Start 04/06/19 at 09:00; Stop 04/17/19 at 17:28; Status DC Loperamide HCl (Imodium) 2 mg PRN Q2HR PRN PO DIARRHEA; Start 04/05/19 at 18:15; Stop 04/23/19 at 15:03; Status DC Ondansetron HCl (Zofran Odt) 4 mg PRN Q6HRS PRN PO NAUSEA/VOMITING; Start 04/05/19 at 18:15; Stop 04/23/19 at 15:03; Status DC Polyethylene Glycol (miraLAX) 17 gm PRN DAILY PRN PO CONSTIPATION; Start 04/05/19 at 18:15; Stop 04/23/19 at 15:03; Status DC Risperidone (RisperDAL) 1 mg QHS PO Last administered on 04/11/19at 19:51; Start 04/05/19 at 21:00; Stop 04/12/19 at 12:18; Status DC Linagliptin (Tradjenta) 5 mg DAILY PO Last administered on 04/23/19at 07:49; Start 04/06/19 at 09:00; Stop 04/23/19 at 15:03; Status DC Multivitamins/ Minerals (I-[place]) 1 tab DAILY PO Last administered on 04/23/19at 07:48; Start 04/06/19 at 09:00; Stop 04/23/19 at 15:03; Status DC Budesonide (Pulmicort) 0.5 mg RTBID NEB Last administered on 04/23/19at 10:23; Start 04/05/19 at 20:00; Stop 04/23/19 at 15:03; Status DC Insulin Human Lispro (HumaLOG) 0-5 UNITS TIDWMEALS SQ Last administered on 04/19/19at 12:30; Start 04/06/19 at 08:00; Stop 04/23/19 at 15:03; Status DC Levofloxacin (Levaquin) 500 mg DAILY07 PO Last administered on 04/16/19at 05:24; Start 04/09/19 at 22:00; Stop 04/16/19 at 22:00; Status DC Lactobacillus Rhamnosus (Culturelle) 1 cap BID PO Last administered on 04/23/19at 07:48; Start 04/09/19 at 21:00; Stop 04/23/19 at 15:03; Status DC Risperidone (RisperDAL) 0.75 mg QHS PO Last administered on 04/22/19at 20:06; Start 04/12/19 at 21:00; Stop 04/23/19 at 15:03; Status DC Isosorbide Mononitrate (Imdur) 30 mg DAILY PO Last administered on 04/23/19at 07:49; Start 04/18/19 at 09:00; Stop 04/23/19 at 15:03; Status DC Active Scripts Active Reported [place] (Menthol) 113 Gm Gel..gram. 1 Jennifer TP PRN QID PRN Milk Of Magnesia (Magnesium Hydroxide) 2,400 Mg/10 Ml Oral.susp 2,400 Mg PO PRN QHS PRN Maalox Maximum Strength Susp (Mag Hydrox/Al Hydrox/Simeth) 355 Ml Oral.susp 15 Ml PO PRN AFTMEALHC PRN Isosorbide Mononitrate Er (Isosorbide Mononitrate) 30 Mg Tab.er.24h 30 Mg PO DAILY Dicyclomine Hcl 20 Mg Tablet 20 Mg PO PRN Q8HRS PRN Ventolin Hfa Inhaler (Albuterol Sulfate) 18 Gm Hfa.aer.ad 2 Puff IH PRN Q6HRS PRN Tylenol (Acetaminophen) 325 Mg Tablet 650 Mg PO PRN Q6HRS PRN Risperdal (Risperidone) 1 Mg Tablet 0.75 Mg PO QHS Pulmicort (Budesonide) 0.5 Mg/2 Ml Ampul.neb 0.5 Mg IH BID Preservision Areds Softgel (Vit A/Vit C/Vit E/Zinc/Copper) 1 Each Capsule 1 Each PO DAILY Miralax (Polyethylene Glycol 3350) 17 Gm Powd.pack 17 Gm PO PRN DAILY PRN Ondansetron Odt (Ondansetron) 4 Mg Tab.rapdis 4 Mg PO PRN Q6HRS PRN Loperamide (Loperamide Hcl) 2 Mg Tablet 2 Mg PO PRN Q2HR PRN Januvia (Sitagliptin Phosphate) 100 Mg Tablet 100 Mg PO DAILY Novolog Flexpen (Insulin Aspart) 100 Unit/1 Ml Insuln.pen 2-6 Unit SQ TIDBFRMEAL eating not eating or HS 70-150 0 0 151-200 2 0 201-250 4 0 251-300 6 2 301-350 8 3 Hydrocodone-Apap 5-325 (Hydrocodone Bit/Acetaminophen) 1 Each Tablet 1 Tab PO PRN Q4HRS PRN Haloperidol 5 Mg Tablet 5 Mg PO PRN Q8HRS PRN Glimepiride 4 Mg Tablet 4 Mg PO BID Ferrous Sulfate 325 Mg Tablet 325 Mg PO DAILY Zetia (Ezetimibe) 10 Mg Tablet 10 Mg PO DAILY Cymbalta (Duloxetine Hcl) 60 Mg Capsule.dr 60 Mg PO QHS Buspirone Hcl 10 Mg Tablet 10 Mg PO TID Bisacodyl 10 Mg Supp.rect 10 Mg RC PRN DAILY PRN Aspirin Ec (Aspirin) 81 Mg Tablet.dr 81 Mg PO DAILY Duoneb 0.5-3(2.5) Mg/3 Ml (Albuterol/Ipratropium) 3 Ml Ampul.neb 3 Ml NEB QID Calcium 500 + Vit D 200 Tablet (Calcium Carbonate/Vitamin D3) 1 Each Tablet 1 Each PO DAILY I have reviewed the current psychotropics carefully including drug interactions. Risk benefit ratio favors no change other than as noted in my dictated progress note. Diagnosis: Problems: (1) Dementia with behavioral disturbance (2) Delusional disorder (3) Dementia, vascular, with depression (4) Dementia, vascular, with delusions (5) Major depression with psychotic features VIRY COTE MD Apr 23, 2019 22:32
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
== END 2019-04-23 14:40 | disposition home or self-care (01) | DRG 885 ==
LOC: GEROPSY 15:30
PROVIDERS: ADMIT Psychiatry & Neurology Psychiatry; ATTEND Psychiatry & Neurology Psychiatry
DX: F33.3 Major depressive disorder, recurrent, severe with psychotic symptoms (principal); F01.51 Vascular dementia, unspecified severity, with behavioral disturbance; F02.81 Dementia in other diseases classified elsewhere, unspecified severity, with behavioral disturbance; J96.11 Chronic respiratory failure with hypoxia; Z87.891 Personal history of nicotine dependence; J44.9 Chronic obstructive pulmonary disease, unspecified; J84.10 Pulmonary fibrosis, unspecified; I25.10 Atherosclerotic heart disease of native coronary artery without angina pectoris; I25.2 Old myocardial infarction; E78.00 Pure hypercholesterolemia, unspecified; E11.9 Type 2 diabetes mellitus without complications; M81.0 Age-related osteoporosis without current pathological fracture; M51.36 Other intervertebral disc degeneration, lumbar region; Z90.710 Acquired absence of both cervix and uterus; Z88.6 Allergy status to analgesic agent; Z88.1 Allergy status to other antibiotic agents; Z80.0 Family history of malignant neoplasm of digestive organs; F41.9 Anxiety disorder, unspecified; F63.9 Impulse disorder, unspecified; G30.9 Alzheimer's disease, unspecified; J31.0 Chronic rhinitis; Z79.82 Long term (current) use of aspirin; Z79.84 Long term (current) use of oral hypoglycemic drugs; Z79.899 Other long term (current) drug therapy; Z95.5 Presence of coronary angioplasty implant and graft
CPT/HCPCS: 36415; 73060; 80053; 80061; 81001; 82306; 82947; 83036; 83540; 83550; 83735; 84436; 84443; 84480; 85025; 86592; 87086; 87186; 93005; 94640; 94760; 97161; J1815; J7620; J7626; 97110; 97116; 97530; 97535